=== PATIENT | male | born 1965 | race Caucasian/White ===

== ENCOUNTER → 2020-11-01 10:58 | Outpatient (BNVA) | payer OTHER, SELFPAY | PROVIDERS: PCP Internal Medicine; Visit Provider Internal Medicine Gastroenterology ==

== ENCOUNTER 2021-10-18 14:13 | Outpatient (REF) | payer OTHER, SELFPAY ==
[2021-10-18 16:11] LABS: Alanine Aminotransferase 20 U/L (0-40); Albumin Level 4.4 g/dL (3.5-5.0); Alkaline Phosphatase 68 U/L (39-117); Aspartate Amino Transferase 18 U/L (5-37); Bilirubin Direct 0.6 mg/dL (0.0-0.5); Bilirubin Total 1.6 mg/dL (0.0-1.0)
[2021-10-18 16:31] LABS: Ferritin 316 ng/mL (20-250)
== END 2021-10-18 14:14 | disposition home or self-care (01) ==
LOC: HO.LAB 14:13
PROVIDERS: PCP Internal Medicine; Referring Provider Internal Medicine; Visit Provider Nurse Practitioner Family
DX: Z01.818 Encounter for other preprocedural examination (principal); D12.6 Benign neoplasm of colon, unspecified; E83.119 Hemochromatosis, unspecified; R74.8 Abnormal levels of other serum enzymes
CPT/HCPCS: 36415; 80076; 82728

== ENCOUNTER → 2021-10-26 15:27 | Outpatient (BNV) | payer OTHER, SELFPAY | PROVIDERS: PCP Internal Medicine; Referring Provider Nurse Practitioner Family; Visit Provider Internal Medicine | DX: E83.119 Hemochromatosis, unspecified (principal) | CPT/HCPCS: 99203; 99213; 99214 ==

== ENCOUNTER 2021-11-19 12:17 | Day surgery (SDC) | payer OTHER, SELFPAY ==
[2021-11-13 15:18] VITALS: BMI 26.1
--- NOTE | 2021-11-15 14:54 | P.CONAN_ITS ---
Documented by User: Domitila Kellogg NP 11/15/21 14:55 HPI - Anesthesia Eval Consult details Narrative: 56yo M for Colonoscopy PMFSH Active Problems Active Problems: All Active Problems (Updated 11/13/21 @ 15:18 by Christiane Sotelo, CARLIE) Tubular adenoma of colon (Acute) Hemochromatosis (Acute) Past Medical History Medical History (Updated 11/13/21 @ 15:18 by Christiane Sotelo RN) COVID-19 vaccine series completed Hemochromatosis Hx of gout Inguinal hernia Tubular adenoma of colon Family History Family History Mother Cancer Surgical History Surgical History (Updated 11/13/21 @ 15:12 by Christiane Sotelo RN) H/O colonoscopy History of liver biopsy Hx of umbilical hernia repair Social History Social History (Updated 10/26/21 @ 15:36 by Zenaida Contreras RN) Household Members: Spouse Alcohol intake: current Alcohol intake frequency: a few times a week Patient Tobacco Use Status: Never used Tobacco Use of substances other than those prescribed or required for medical reasons: No Have you been hit, kicked, punched, or otherwise hurt by someone within the past year? If so, by whom?: No Are you DNR?: No Advance Directives: No Advance Directives Information Provided: Yes Advance Directives on File: No Recently lost weight without trying: No Eating poorly because of decreased appetite: No Nutrition Risks: No Nutritional Risk Poor oral hygiene: No Meds Allergies Allergy/AdvReac Type Severity Reaction Status Date / Time No Known Allergies Allergy Mild N/A Verified 10/18/21 14:16 Home Medications Medication Instructions Recorded Confirmed Last Taken Type imiquimod 5 % topical cream packet 1 appl TOPICAL DAILY 11/01/20 11/13/21 U nknown History indomethacin 50 mg capsule 50 mg PO TID PRN MDD gout 11/01/20 11/13/21 Unknown History Exam Exam Date and Time: November 15, 2021 1454 Height,Weight and Vital Signs: Height 5 ft 10 in Weight 82.554 kg Pertinent Lab Results Pertinent Lab Results: Laboratory Tests 10/26/21 10/26/21 15:02 15:02 WBC 7.7 Hgb 15.4 Hct 45.8 Plt Count 281 Iron 190 H TIBC 301 % Saturation 63 H Unsat Iron Binding 111 Ferritin 347 H Assessment and Plan Assessment Anesthesia Assessment: Chart Reviewed Documented by User: Oly Negrete MD 11/19/21 12:47 PMFSH Past Medical History Medical History (Updated 11/13/21 @ 15:18 by Christiane Sotelo, CARLIE) COVID-19 vaccine series completed Hemochromatosis Hx of gout Inguinal hernia Tubular adenoma of colon Family History Family History Mother Cancer Family history of problems with anesthesia: No Surgical History Surgical History (Updated 11/13/21 @ 15:12 by Christiane Sotelo RN) H/O colonoscopy History of liver biopsy Hx of umbilical hernia repair History of Problems with Anesthesia: No Social History Social History (Updated 10/26/21 @ 15:36 by Zenaida Contreras RN) Household Members: Spouse Alcohol intake: current Alcohol intake frequency: a few times a week Patient Tobacco Use Status: Never used Tobacco Use of substances other than those prescribed or required for medical reasons: No Have you been hit, kicked, punched, or otherwise hurt by someone within the past year? If so, by whom?: No Are you DNR?: No Advance Directives: No Advance Directives Information Provided: Yes Advance Directives on File: No Recently lost weight without trying: No Eating poorly because of decreased appetite: No Nutrition Risks: No Nutritional Risk Poor oral hygiene: No Meds Allergies Allergy/AdvReac Type Severity Reaction Status Date / Time No Known Allergies Allergy Mild N/A Verified 10/18/21 14:16 Home Medications Medication Instructions Recorded Confirmed Last Taken Type imiquimod 5 % topical cream packet 1 appl TOPICAL DAILY 11/01/20 11/13/21 Unknown History indomethacin 50 mg capsule 50 mg PO TID PRN MDD gout 11/01/20 11/13/21 Unknown History Exam Airway Mallampati Class: II (Caps laterally) TM Dist: >3cm Neck ROM: Full Heart: rrr Lungs: cta Assessment and Plan Assessment Anesthesia Assessment: Anesthesia Plan Discussed and Chart Reviewed Final Anesthetic Review Family History of Problems with Anesthesia: No History of Problems with Anesthesia: No NPO: Yes ASA Class: II Final Preanesthetic Review: No Changes in Pt Med Stat, Meds/Allgs Chart Reviewed and Consent Obtained/Reviewed Patient Risk: Intermediate Procedure Risk: Intermediate Anesthetic Plan Anesthetic Plan: MAC: Disposition: Standard PACU
[2021-11-19 12:32] VITALS: BMI 26.5
[2021-11-19 12:40] VITALS: BP 118/85; PULSE 87; RESP 18; TEMP 36.2; O2SAT 96
--- NOTE | 2021-11-19 12:53 | MHC.SHP ---
Pre-Procedural Eval Section A Date of Service: 11/19/21 The patient is an INPATIENT: No The History & Physical has been completed within 30 days and I have reviewed it.: No Section B Chief Complaint: screening Details of Present Illness: Colon cancer screen Relevant Family History (Specify if Yes): No Relevant Social History: None Present Medications: see Short Stay Collaborative assessment Medical History: Significant History (Hemochromatosis Hx of gout Inguinal hernia Tubular adenoma of colon) History of Previous Operations: Relevant previous surgery/procedure and date(s) (H/O colonoscopy History of liver biopsy) Allergies: Allergies Allergy/AdvReac Type Severity Reaction Status Date / Time No Known Allergies Allergy Mild N/A Verified 10/18/21 14:16 Review of Systems Sugical H&P ROS: Negative: Constitution, Cardiovascular, Respiratory and Gastrointestinal Exam Surgical H&P Exam: Normal: Heart, Normal: Lungs, Normal: Extremities and Normal: Abdomen Plan Diagnosis/Plan: Unchanged I have reviewed the history and physical and performed a pertinent physical examination on my patient. No changes have occurred unless specified.
--- NOTE | 2021-11-19 12:55 | W.PM.OPN ---
Operative Note Operative Note Date of Service: 11/19/21 Narrative: Pre-op diagnosis: Colon cancer screening, history of colon polyps Post-op diagnosis:?other (Colon polyps, diverticulosis, hemorrhoids) Procedure: COLONOSCOPY TILL CECUM WITH BIOPSIES Consent: Indications for the procedure and potential complications of bleeding, perforation, reaction to medications and missed diagnosis were discussed with the patient and informed consent was obtained. Instrument: Olympus PCF H 190 L variable stiffness pediatric colonoscope Monitoring: Vital signs and clinical assessment, intermittent blood pressure monitoring, continuous EKG monitoring, Pulse oximetry and Carbon Dioxide monitoring were done throughout the procedure. Colon withdrawl time was 19 minutes. Procedure: The patient was placed in the left lateral decubitis position and pre-procedure medications were administered. After a digital rectal examination of the ano-rectum, the video colonoscope was inserted into the rectum and advanced through the colon to the cecum. The colonoscope was slowly withdrawn in a retrograde panoramic fashion and the colon mucosa was carefully examined including a retroflexed view of the rectum. Findings and interventions are described below. Procedure Difficulty:? Colon was long and there was some loop formation.? LLQ? pressure was applied to intubate the ascending colon Findings: Terminal Ileum: Not evaluated Cecum:? Normal Ascending Colon:? Normal Transverse Colon:? Normal Descending Colon:? Normal Sigmoid Colon:? A 2-3 mm sessile polyp removed with the cold biopsy. Moderate diverticulosis Rectum:? A few 2-5 mm diminutive appearing polyps - 1 removed with cold biopsy Ano-rectum:? Moderate internal hemorrhoids Colon preparation:? Good? Impression and Post Procedure Diagnosis: Colonoscopy Findings: Two small polyps removed Moderate diverticulosis seen in the sigmoid colon Moderate hemorrhoids on retroflexed exam. Plan: Await pathology results Patient has an appointment on 12/07/20 in the [facility] with Stephanie Cloud FNP-BC . Repeat Colonoscopy interval based on path results - in 5 years if polyps are adenomatous and due to a history of colon polyps. (Adult colonoscope for future colonoscopies) Above findings were reviewed with the patient and colon polyps and diverticulosis handouts were given in the discharge area Surgeon: Michela Martinez MD Anesthesia:?MAC (Dr Croft) Was an Community Engagement Representative used for this Procedure?:?Yes Community Engagement Representative:?Sandra Mckay Estimated blood loss (mL):?0 Pathology:?other (A. sigmoid polyp? B. rectal polyp) Condition:?stable Disposition:?PACU
[2021-11-19] MEDS: Lactated Ringers 1,000 ML 100 ML IVCONT (13:42)
[2021-11-19 14:16] VITALS: BP 116/64; PULSE 82; RESP 16; TEMP 36.4; O2SAT 94
[2021-11-19 14:31] VITALS: BP 117/78; PULSE 77; RESP 18; TEMP 36.4; O2SAT 96
== END 2021-11-19 15:27 | disposition home or self-care (01) ==
PROVIDERS: PCP Internal Medicine; Visit Provider Internal Medicine Gastroenterology
PROC: 0DJD8ZZ Inspection of Lower Intestinal Tract, Via Natural or Artificial Opening Endoscopic (ICD-10-PCS; CPT 45378; principal; 2021-11-19 13:20)
DX: Z12.11 Encounter for screening for malignant neoplasm of colon (principal); D12.5 Benign neoplasm of sigmoid colon; K62.1 Rectal polyp; K57.30 Diverticulosis of large intestine without perforation or abscess without bleeding; K64.8 Other hemorrhoids; K56.2 Volvulus; E83.119 Hemochromatosis, unspecified; Z86.010 Personal history of colon polyps
CPT/HCPCS: 45380; 88305

== ENCOUNTER 2021-11-23 10:04 | Outpatient (REF) | payer OTHER, SELFPAY ==
[2021-11-23 10:32] LABS: Uric Acid 14.9 mg/dL (3.4-7.0)
[2021-11-23 10:52] LABS: PSA,Total (Free>4and<10) 2.14 ng/mL (0.00-4.00)
== END 2021-11-23 10:05 | disposition home or self-care (01) ==
LOC: HO.LNP 10:04
PROVIDERS: Visit Provider Internal Medicine
DX: Z12.5 Encounter for screening for malignant neoplasm of prostate (principal); M10.9 Gout, unspecified; R97.20 Elevated prostate specific antigen [PSA]
CPT/HCPCS: 84153; 84550

== ENCOUNTER → 2021-12-07 08:58 | Outpatient (BNVA) | payer OTHER, SELFPAY | PROVIDERS: PCP Internal Medicine; Referring Provider Internal Medicine; Visit Provider Nurse Practitioner Family | DX: Z13.89 Encounter for screening for other disorder (principal) ==

== ENCOUNTER 2022-01-11 10:45 | Outpatient (REF) | payer OTHER, SELFPAY | END 2022-01-11 10:46 | disposition home or self-care (01) | LOC: HO.BBR 10:45 | PROVIDERS: Visit Provider Internal Medicine | DX: Z13.89 Encounter for screening for other disorder (principal) ==

== ENCOUNTER 2022-02-08 08:02 | Outpatient (REF) | payer OTHER, SELFPAY | END 2022-02-08 08:03 | disposition home or self-care (01) | LOC: HO.BBR 08:02 | PROVIDERS: Visit Provider Internal Medicine | DX: Z13.89 Encounter for screening for other disorder (principal) ==

== ENCOUNTER 2022-03-08 08:06 | Outpatient (REF) | payer OTHER, SELFPAY | END 2022-03-08 08:07 | disposition home or self-care (01) | LOC: HO.BBR 08:06 | PROVIDERS: Visit Provider Internal Medicine | DX: Z13.89 Encounter for screening for other disorder (principal) ==

== ENCOUNTER 2022-04-08 08:00 | Outpatient (REF) | payer OTHER, SELFPAY | END 2022-04-08 08:01 | disposition home or self-care (01) | LOC: HO.BBR 08:00 | PROVIDERS: Visit Provider Internal Medicine | DX: Z13.89 Encounter for screening for other disorder (principal) ==

== ENCOUNTER 2022-05-07 08:05 | Outpatient (REF) | payer OTHER, SELFPAY | END 2022-05-07 08:06 | disposition home or self-care (01) | LOC: HO.BBR 08:05 | PROVIDERS: Visit Provider Internal Medicine | DX: Z13.89 Encounter for screening for other disorder (principal) ==

== ENCOUNTER 2022-06-04 08:08 | Outpatient (REF) | payer OTHER, SELFPAY | END 2022-06-04 08:09 | disposition home or self-care (01) | LOC: HO.BBR 08:08 | PROVIDERS: Visit Provider Internal Medicine | DX: Z13.89 Encounter for screening for other disorder (principal) ==

== ENCOUNTER 2022-07-02 08:03 | Outpatient (REF) | payer OTHER, SELFPAY | END 2022-07-02 08:04 | disposition home or self-care (01) | LOC: HO.BBR 08:03 | PROVIDERS: Visit Provider Internal Medicine | DX: Z13.89 Encounter for screening for other disorder (principal) ==

== ENCOUNTER 2022-07-30 08:06 | Outpatient (REF) | payer OTHER, SELFPAY | END 2022-07-30 08:07 | disposition home or self-care (01) | LOC: HO.BBR 08:06 | PROVIDERS: Visit Provider Internal Medicine | DX: Z13.89 Encounter for screening for other disorder (principal) ==

== ENCOUNTER 2022-08-27 08:04 | Outpatient (REF) | payer OTHER, SELFPAY | END 2022-08-27 08:05 | disposition home or self-care (01) | LOC: HO.BBR 08:04 | PROVIDERS: Visit Provider Internal Medicine | DX: Z13.89 Encounter for screening for other disorder (principal) ==

== ENCOUNTER 2022-10-02 08:10 | Outpatient (REF) | payer OTHER, SELFPAY | END 2022-10-02 08:11 | disposition home or self-care (01) | LOC: HO.BBR 08:10 | PROVIDERS: PCP Internal Medicine; Visit Provider Internal Medicine | DX: Z13.89 Encounter for screening for other disorder (principal) ==

== ENCOUNTER 2022-10-03 11:49 | Outpatient (REF) | payer OTHER, SELFPAY ==
[2022-10-03 11:59] LABS: MANUAL DIFF FLAG NO
[2022-10-03 12:34] LABS: Basophils Absolute Auto 0.1 X10*3/uL (0.0-0.2); Basophils Percent Auto 0.8 % (0-2); Eosinophils Absolute Auto 0.4 X10*3/uL (0.0-0.4); Hemoglobin 14.3 g/dl (14.0-18.0); Imm Gran Abs Auto 0.05 X10*3/uL (0.00-0.03); Imm Gran Pct Auto 0.8 % (0.0-0.4); Lymphocytes Percent Auto 47.6 % (20-40); Mean Corpuscular Hemoglobin 32.1 pg (27.0-33.0); Mean Corpuscular Volume 94.2 fL (80.0-98.0); Mean Platelet Volume 9.8 fL (9.4-12.4); Monocytes Absolute Auto 0.6 X10*3/uL (0.1-1.2); Monocytes Percent Auto 9.7 % (2-11); Neutrophils Absolute Auto 2.2 x10*3/uL (2.0-8.3); Neutrophils Percent Auto 35.1 % (45-73); Platelet Count 306 X10*3/uL (160-400); Red Blood Count 4.46 X10*6/uL (4.60-5.80); Red Cell Distribution Width 12.7 % (11.0-16.0); White Blood Count 6.2 X10*3/uL (4.8-10.8)
[2022-10-03 12:37] LABS: Appearance Urine Clear; Color Urine Yellow; Glucose Urine UA Negative (Negative); Leukocyte Esterase Urine Negative (Negative); Nitrite Urine Negative (Negative); Urine Blood Negative (Negative); Urine Ketones Negative (Negative); Urine Protein Negative (Neg-Trace)
[2022-10-03 12:47] LABS: Bacteria Urine None Seen (None Seen); Hyaline Casts Urine 0-2 /LPF (0-2); RBC Urine 0-2 /HPF (0-2); Squamous Epithelial Cell Urine 0-2 /HPF (0-2); WBC Urine 0-5 /HPF (0-5)
[2022-10-03 12:58] LABS: Alanine Aminotransferase 20 U/L (0-40); Albumin Level 3.9 g/dL (3.5-5.0); Alkaline Phosphatase 61 U/L (39-117); Anion Gap 13 (12-20); Aspartate Amino Transferase 18 U/L (5-37); Bilirubin Total 1.1 mg/dL (0.0-1.0); Blood Urea Nitrogen 18 mg/dL (9-16); Calcium 8.8 mg/dL (8.4-10.2); Carbon Dioxide 26 mmol/L (22-29); Chloride 108 mmol/L (96-108); Cholesterol 210 mg/dL; Estimated Glomerular Filt Rate > 60; Glucose Fasting 104 mg/dL (60-99); HDL Cholesterol 67 mg/dL; Iron 150 mcg/dL (45-160); LDL Cholesterol Calculated 126 mg/dl; Percent Iron Saturation 50 % (15-50); Potassium 4.6 mmol/L (3.3-5.1); Sodium 142 mmol/L (135-145); Total Iron Binding Capacity 300 mcg/dL (228-428); Total Protein 6.3 g/dL (6.5-8.0); Triglycerides 88 mg/dL; Unsaturated Iron Binding 150 ug/dL; Uric Acid 8.7 mg/dL (3.4-7.0)
[2022-10-03 13:01] LABS: Estimated Average Glucose 94 mg/dL; Hemoglobin A1c % 4.9 %
[2022-10-03 13:17] LABS: Ferritin 63 ng/mL (20-250); PSA,Total (Free>4and<10) 2.29 ng/mL (0.00-4.00)
[2022-10-03 13:49] LABS: Microalbum/Creatinine Ratio Ur 5.9 ug/mg cr
== END 2022-10-03 11:50 | disposition home or self-care (01) ==
LOC: HO.LNP 11:49
PROVIDERS: Visit Provider Internal Medicine
DX: Z00.00 Encounter for general adult medical examination without abnormal findings (principal); Z12.5 Encounter for screening for malignant neoplasm of prostate; R73.03 Prediabetes; R97.20 Elevated prostate specific antigen [PSA]; D72.820 Lymphocytosis (symptomatic); E83.119 Hemochromatosis, unspecified
CPT/HCPCS: 80053; 80061; 81001; 82043; 82728; 83036; 83540; 84153; 84550; 85025

== ENCOUNTER 2022-10-30 08:09 | Outpatient (REF) | payer OTHER, SELFPAY | END 2022-10-30 08:10 | disposition home or self-care (01) | LOC: HO.BBR 08:09 | PROVIDERS: Visit Provider Internal Medicine | DX: Z13.89 Encounter for screening for other disorder (principal) ==

== ENCOUNTER 2022-12-11 08:03 | Outpatient (REF) | payer OTHER, SELFPAY | END 2022-12-11 08:04 | disposition home or self-care (01) | LOC: HO.BBR 08:03 | PROVIDERS: Visit Provider Internal Medicine | DX: Z13.89 Encounter for screening for other disorder (principal) ==

== ENCOUNTER 2023-01-29 08:01 | Outpatient (REF) | payer OTHER, SELFPAY | END 2023-01-29 08:02 | disposition home or self-care (01) | LOC: HO.BBR 08:01 | PROVIDERS: PCP Internal Medicine; Visit Provider Internal Medicine | DX: Z13.89 Encounter for screening for other disorder (principal) ==

== ENCOUNTER 2023-03-10 15:34 | Outpatient (AMB) | payer OTHER, SELFPAY ==
--- NOTE | 2023-03-10 15:38 | A.OFFVIS_ITS ---
Intake Vital Signs 03/10/23 15:39 Height 5 ft 10 in Weight 200 lb 6.403 oz BMI 28.8 BP 120/84 Blood Pressure Location Rt brachial Position Sitting Pulse 84 Pulse Source Pulse Oximeter Temp 98.1 F Temp Source Skin Pulse Oximetry (%) 95 Intake Visit Reasons: acute gout lt ankle Intake Note: New pt presents today for gout consult. He states he's had gout on and off since December 2021. 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 For about 10 years he has had intermittent gout attacks. These have involved the 1st MTP in both feet, left ankle, one knee, and the right hand. He has been on the allopurinol in the past but it was associated with increased attacks so he was afraid to take it. For about the last year he has been taking 300 mg daily. However he did have a gout attack in December. This was involving the right 2nd MCP and also the left ankle. This did not respond as well to ibuprofen 800 mg daily as it had previously. He was given a course of prednisone and the symptoms mostly have resolved. He thinks there still is some swelling at the right 2nd MCP but it is not painful. The ankle has improved. He does have a history of hemochromatosis and gets phlebotomy done about every 6 weeks. That apparently is a reduction in frequency then he had it done before - it was monthly. He also had some treatment in the past with indomethacin and colchicine but those medicines caused stomach upset. In the past year he seems to be having some knee pain and discomfort. This is particularly notable with stairs. He has not had recent gout attacks in the knees but did have gout attacks in the knees in the past. [facility] Medical History (Updated 03/10/23 @ 16:34 by Chava Gallardo MD) COVID-19 vaccine series completed Hemochromatosis Hx of gout Inguinal hernia Tubular adenoma of colon Surgical History H/O colonoscopy History of liver biopsy Hx of umbilical hernia repair Family History Mother Cancer Social History (Updated 03/10/23 @ 15:44 by GEORGE Maria) Household Members: Spouse Household Members Other:: Son Housing: House Alcohol intake: current Alcohol intake frequency: a few times a week Patient Tobacco Use Status: Never used Tobacco service: No Current occupational status: employed Current occupation: [employer] Review of Systems Const Details: Negative for appetite change, weight change, fever, chills, malaise and fatigue Eyes Details: Negative for vision change, dry eyes,headaches and dizziness ENT Details: Occasional tinnitus. Negative for hearing change, oral ulcer, nose bleeds and oral dryness. Card Details: Negative chest pain, edema and syncope Resp Details: Negative for SOB, cough and wheezing GI Details: History of hemochromatosis, on phlebotomy on a regular basis. Negative indigestion/heartburn, nausea, abdominal pain, bowel changes, diarrhea, constipation and bloody stool. Details: Negative for dysuria, hematuria, nocturia, decreased force/flow and genital discharge Skin/Breast Details: Negative for itching, rash, hives, Raynaud's symptoms, sun sensitivity, and skin cancer Neuro Details: Negative for epilepsy, palsy, stroke, changes in speech, tingling and weakness Psych Details: Negative for anxiety, depression and stress Endo Details: Negative for polyuria and polydypsia Eyal/Lymph Details: Negative for excessive bruising or bleeding. Physical Exam Vital Signs: Last Vital Signs Temp 98.1 F 03/10/23 15:39 Pulse 84 03/10/23 15:39 BP 120/84 03/10/23 15:39 Pulse Ox 95 03/10/23 15:39 BMI result Body Mass Index 28.8 APPEARANCE: Patient in no acute distress EYES no redness, pupils equal and reactive to light, eyelids normal EARS: External ear normal, canal clear and tympanic membrane normal. NOSE/SINUS: Airflow through both nares, no nasal discharge, no bleeding THROAT: Oral mucosa moist, no ulcerations NECK: No thyromegaly or masses, no adenopathy, trachea midline. HEART: Regulrar rhythm, S1-S2 heard, no murmurs, rubs or gallops. LUNG: Clear to percussion and auscultation ABD: Normal bowel sounds, no organomegaly, masses or tenderness. EXTREMITIES: No edema, no calf tenderness, normal peripheral pulses. NEURO: Oriented and alert x3. No focal weakness. Reflexes symmetric. Gait normal. SKIN: No inflammatory or neoplastic lesions. Normal color and turgor JOINT EXAM:?? Cervical Spine:.? Full range of motion without pain; no tenderness. Thoracic Spine:.? No scoliosis.? No tenderness on palpation. Lumbar Spine:.? Alignment normal.? Full range of motion without pain, no tenderness. Chest Wall:.? No tenderness, swelling, increased warmth or erythema. Hands:.? Right: There is some slight enlargement at the 2nd MCP and the thumb IP. Neither of these are tender today. This feels mostly like bony enlargement. There is no flexor tendon triggering, thenar atrophy, or flexor tendinitis. He has no tenderness or pain elsewhere. Left: Normal pain-free range of motion without tenderness, swelling, increased warmth or erythema. Able to make a full fist and has a good student assistant strength. Wrists:.? Normal pain-free range of motion without tenderness, swelling, increased warmth or erythema. Elbows:. Normal pain-free range of motion without tenderness, swelling, increased warmth or erythema. Shoulders:.?? Full range of motion without pain. No tenderness, weakness, swelling, increased warmth or erythema. Hips:.? Full range of motion without pain. Hip bursa:.? No tenderness. Knees:.?? Normal pain-free range of motion with mild patellofemoral crepitus. No effusion, tenderness, swelling, increased warmth or erythema.? Ankles:.? Left: There is normal pain-free range of motion. There is a slight valgus deformity at the ankle. There is minimal medial tenderness with may be some more prominence on the medial side. No redness or warmth. Right: Normal pain-free range of motion without tenderness, swelling, increased warmth or erythema. Feet:.? Normal pain-free range of motion with mild 1st MTP bony enlargement. This is not associated with any tenderness, redness or soft tissue swelling. Other joints have no tenderness, swelling, increased warmth or erythema. Tender points:.? No tenderness to digital palpation at the occiput, trapezius, second rib, lateral epicondyle, knees, greater trochanter and gluteal area bilaterally. ? Results Reviewed Results Reviewed: Laboratory Tests 10/03/22 10/03/22 07:30 07:30 WBC 6.2 Hgb 14.3 Uric Acid 8.7 H Laboratory Tests 11/23/21 07:35 Uric Acid 14.9 H Laboratory Tests 04/26/22 10/03/22 11:25 07:30 Creatinine 0.93 0.90 Assessment & Plan Assessment & Plan (1) Hemochromatosis: Comment: past hx of therapeutic phlebotomies-hematology consult 10/26/21 and advised to resume therapeutic phlebotomies Code(s): E83.119 - Hemochromatosis, unspecified Qualifiers: Hemochromatosis type: hereditary Qualified Code(s): E83.110 - Hereditary hemochromatosis (2) Gout: Code(s): M10.9 - Gout, unspecified Plan The patient has had gout attacks for number of years. The initial uric acid was over 14. More recently it was at 8.7 although it is not clear on what dose of the allopurinol he was on at time. He does have hemochromatosis with regular phlebotomies. That could change to some extent the uric acid level. I explained the changes in the uric acid level such as starting, stopping, or changing allopurinol dose could precipitate an attack. He would need to have a prophylactic medicine or a p.r.n. treatment plan if he gets another gout attack. I think we need to check the uric acid. We will be aiming to keep the uric a elo below 6. Keeping the level below 6 over time will eventually reduce the frequency and severity of the gout attacks. The swelling at the right 2nd MCP could represent some osteoarthritis related to his hemochromatosis, residual swelling from the recent attack, or even localized uric acid deposition in a tophus. Similarly the knee pain could be some mild patellofemoral OA, some OA related to gouty arthropathy, or OA related to hemochromatosis. We will arrange follow-up depending on his uric acid level. I am aiming to get the uric acid below 6. If we need to increase the allopurinol dosage we would ask him to increase for a week or so the allopurinol dose. If he flares in spite of that measure we would add some prednisone. I will get back to him with the recommendations after the uric acid level comes back. Orders: Orders Basic Metabolic Panel Today M10.9 - Gout, unspecified Uric Acid Today M10.9 - Gout, unspecified Coding Level of Care Code New Pt Level 3 (25192) Diagnoses Hemochromatosis E83.110 Hemochromatosis type: hereditary Gout M10.9
[2023-03-10 15:39] VITALS: BP 120/84; PULSE 84; TEMP 36.7; O2SAT 95; BMI 28.8
== END 2023-03-10 16:45 | disposition home or self-care (01) ==
PROVIDERS: PCP Internal Medicine; Visit Provider Internal Medicine Rheumatology
DX: E83.110 Hereditary hemochromatosis (principal); M10.9 Gout, unspecified
CPT/HCPCS: 99203

== ENCOUNTER → 2023-03-10 15:34 | Outpatient (BNVA) | payer OTHER, SELFPAY | PROVIDERS: PCP Internal Medicine; Visit Provider Internal Medicine Rheumatology ==

== ENCOUNTER 2023-03-12 08:01 | Outpatient (REF) | payer OTHER, SELFPAY | END 2023-03-12 08:02 | disposition home or self-care (01) | LOC: HO.BBR 08:01 | PROVIDERS: PCP Internal Medicine; Visit Provider Internal Medicine | DX: Z13.89 Encounter for screening for other disorder (principal) ==

== ENCOUNTER 2023-03-12 08:41 | Outpatient (REF) | payer OTHER, SELFPAY ==
[2023-03-12 10:57] LABS: Anion Gap 16 (12-20); Blood Urea Nitrogen 23 mg/dL (9-16); Calcium 9.3 mg/dL (8.4-10.2); Carbon Dioxide 22 mmol/L (22-29); Chloride 109 mmol/L (96-108); Estimated Glomerular Filt Rate > 60; Glucose Random 108 mg/dL (60-115); Potassium 4.8 mmol/L (3.3-5.1); Sodium 142 mmol/L (135-145); Uric Acid 5.1 mg/dL (3.4-7.0)
== END 2023-03-12 08:42 | disposition home or self-care (01) ==
LOC: HO.LNP 08:41
PROVIDERS: Visit Provider Internal Medicine Rheumatology
DX: M10.9 Gout, unspecified (principal)
CPT/HCPCS: 80048; 84550

== ENCOUNTER 2023-04-23 08:01 | Outpatient (REF) | payer OTHER, SELFPAY | END 2023-04-23 08:02 | disposition home or self-care (01) | LOC: HO.BBR 08:01 | PROVIDERS: Visit Provider Internal Medicine | DX: Z13.89 Encounter for screening for other disorder (principal) ==

== ENCOUNTER 2023-06-04 08:02 | Outpatient (REF) | payer OTHER, SELFPAY | END 2023-06-04 08:03 | disposition home or self-care (01) | LOC: HO.BBR 08:02 | PROVIDERS: PCP Internal Medicine; Visit Provider Internal Medicine | DX: Z13.89 Encounter for screening for other disorder (principal) ==

== ENCOUNTER 2023-09-04 08:00 | Outpatient (REF) | payer OTHER, SELFPAY | END 2023-09-04 08:01 | disposition home or self-care (01) | LOC: HO.BBR 08:00 | PROVIDERS: PCP Internal Medicine; Visit Provider Internal Medicine | DX: Z13.89 Encounter for screening for other disorder (principal) ==

== ENCOUNTER 2023-11-14 11:24 | Outpatient (REF) | payer OTHER, SELFPAY ==
[2023-11-14 11:27] LABS: MANUAL DIFF FLAG NO
[2023-11-14 12:00] LABS: Basophils Absolute Auto 0.1 X10*3/uL (0.0-0.2); Basophils Percent Auto 0.8 % (0-2); Eosinophils Absolute Auto 0.2 X10*3/uL (0.0-0.4); Eosinophils Percent Auto 2.9 % (0-4); Hematocrit 45.8 % (42.0-52.0); Hemoglobin 15.7 g/dl (14.0-18.0); Imm Gran Abs Auto 0.02 X10*3/uL (0.00-0.03); Imm Gran Pct Auto 0.3 % (0.0-0.4); Lymphocytes Absolute Auto 2.8 X10*3/uL (1.2-4.9); Lymphocytes Percent Auto 42.4 % (20-40); Mean Corpuscular HGB Conc 34.3 g/dl (31.0-36.0); Mean Corpuscular Hemoglobin 32.2 pg (27.0-33.0); Mean Platelet Volume 9.8 fL (9.4-12.4); Monocytes Absolute Auto 0.5 X10*3/uL (0.1-1.2); Monocytes Percent Auto 7.8 % (2-11); Neutrophils Percent Auto 45.8 % (45-73); Platelet Count 259 X10*3/uL (160-400); Red Blood Count 4.87 X10*6/uL (4.60-5.80); Red Cell Distribution Width 12.9 % (11.0-16.0); White Blood Count 6.5 X10*3/uL (4.8-10.8)
[2023-11-14 12:08] LABS: Appearance Urine Clear; Color Urine Yellow; Glucose Urine UA Negative (Negative); Leukocyte Esterase Urine Negative (Negative); Nitrite Urine Negative (Negative); PH 6.5 (5.0-9.0); Urine Blood Negative (Negative); Urine Ketones Negative (Negative); Urine Protein Negative (Neg-Trace)
[2023-11-14 12:17] LABS: Bacteria Urine None Seen (None Seen); Hyaline Casts Urine 0-2 /LPF (0-2); RBC Urine 0-2 /HPF (0-2); Squamous Epithelial Cell Urine 0-2 /HPF (0-2); WBC Urine 0-5 /HPF (0-5)
[2023-11-14 12:47] LABS: Estimated Average Glucose 91 mg/dL; Hemoglobin A1c % 4.8 % (<6.0)
[2023-11-14 12:51] LABS: Alanine Aminotransferase 27 U/L (0-40); Albumin Level 4.1 g/dL (3.5-5.0); Alkaline Phosphatase 60 U/L (39-117); Anion Gap 12 (12-20); Aspartate Amino Transferase 25 U/L (5-37); Bilirubin Total 1.2 mg/dL (0.0-1.0); Blood Urea Nitrogen 11 mg/dL (9-16); Calcium 9.1 mg/dL (8.4-10.2); Carbon Dioxide 28 mmol/L (22-29); Chloride 105 mmol/L (96-108); Cholesterol 168 mg/dL (<200); Estimated Glomerular Filt Rate > 60; Glucose Fasting 104 mg/dL (60-99); HDL Cholesterol 70 mg/dL (>40); Iron 81 mcg/dL (45-160); LDL Cholesterol Calculated 87 mg/dL (<100); Percent Iron Saturation 27 % (15-50); Potassium 4.1 mmol/L (3.3-5.1); Sodium 141 mmol/L (135-145); Total Iron Binding Capacity 296 mcg/dL (228-428); Total Protein 6.8 g/dL (6.5-8.0); Triglycerides 57 mg/dL (<150); Unsaturated Iron Binding 215 ug/dL
[2023-11-14 13:09] LABS: PSA,Total (Free>4and<10) 2.38 ng/mL (0.00-4.00)
[2023-11-14 13:52] LABS: Creatinine Urine 75.93 mg/dL; Microalbumin Urine < 5.0 mg/L
== END 2023-11-14 11:25 | disposition home or self-care (01) ==
LOC: HO.LNP 11:24
PROVIDERS: Visit Provider Internal Medicine
DX: Z00.00 Encounter for general adult medical examination without abnormal findings (principal); Z12.5 Encounter for screening for malignant neoplasm of prostate; Z13.6 Encounter for screening for cardiovascular disorders; D64.9 Anemia, unspecified; R97.20 Elevated prostate specific antigen [PSA]; R73.03 Prediabetes; D72.820 Lymphocytosis (symptomatic)
CPT/HCPCS: 80053; 80061; 81001; 82043; 82570; 83036; 83540; 84153; 85025

== ENCOUNTER 2023-12-03 08:02 | Outpatient (REF) | payer OTHER, SELFPAY | END 2023-12-03 08:03 | disposition home or self-care (01) | LOC: HO.BBR 08:02 | PROVIDERS: PCP Internal Medicine; Visit Provider Internal Medicine | DX: Z13.89 Encounter for screening for other disorder (principal) ==

== ENCOUNTER 2024-03-04 08:10 | Outpatient (REF) | payer OTHER, SELFPAY ==
[2024-03-04 10:01] LABS: Ferritin 44 ng/mL (20-250)
== END 2024-03-04 08:11 | disposition home or self-care (01) ==
LOC: HO.BBR 08:10
PROVIDERS: PCP Internal Medicine; Visit Provider Internal Medicine
DX: E83.110 Hereditary hemochromatosis (principal)
CPT/HCPCS: 36415; 82728

== ENCOUNTER 2024-06-08 08:05 | Outpatient (REF) | payer OTHER, SELFPAY ==
[2024-06-08 10:46] LABS: Ferritin 59 ng/mL (20-250)
== END 2024-06-08 08:06 | disposition home or self-care (01) ==
LOC: HO.BBR 08:05
PROVIDERS: PCP Internal Medicine; Visit Provider Internal Medicine
DX: E83.110 Hereditary hemochromatosis (principal)
CPT/HCPCS: 36415; 82728

== ENCOUNTER 2024-09-08 08:02 | Outpatient (REF) | payer OTHER, SELFPAY ==
--- OUTSIDE RECORDS SUMMARY | 2024-09-08 08:10 | XMS_ITS ---
Author Organization Gio Valdez MD Address [address] [place] [id number] Care Team Providers Care Motor Vehicle Salesperson Name Role Phone Gio Valdez Primary Care Provider [phone] REASON FOR VISIT referral Encounters Encounter Location Date Provider Diagnosis Gio Valdez MD [address] [facility] [address] [place] [id number] 07/29/2023 Gio Valdez Plan Of Treatment Next Appt Details Provider Name:Gio Tran ier, 11/25/2024 07:15:00 AM, [address] [place] [address], Suite [facility], [place], [place], [phone], Provider Name:Gio Tran ier, 12/02/2024 08:00:00 AM, [address] [place] [address], [address], [phone], Progress Notes * MANANReubenDOB: [birth year] (58 yo M)Acc No.[id number]:07/29/2023 Patient:?Reuben Rome :1965???Age:58 Y???Sex:Male Address:[address] [place] [address] [place] [id number] * true * Date:? Generated for Printi ng/Faxing/eTransmitting on:?09/08/2024 08:10 AM EST
--- OUTSIDE RECORDS SUMMARY | 2024-09-08 08:10 | XMS_ITS | Clinical Summary ---
Author Organization [facility] Address [address] [place] [id number] Care Team Providers Care Patent Drafter Name Role Phone Gio Valdez MD Primary Care Provider [phone] Allergies No known active allergies Medications No known medications Active Problems No known active problems Social History Tobacco Use Types Packs/Day Years Used Date Smoking Tobacco: Never Smokeless Tobacco: Never Sex and Gender Information Value Date Recorded Sex Assigned at Not on file Gender Identity Not on file Sexual Orientation Not on file Last Filed Vital Signs Vital Sign Reading Time Taken Comments Blood Pressure 121/82 03/16/2020 2:55 PM EDT Pulse 65 03/16/2020 2:55 PM EDT Temperature 36.3 ??C (97.4 ??F) 03/16/2020 2:13 PM ED T Respiratory Rate 16 03/16/2020 2:55 PM EDT Oxygen Saturation 96% 03/16/2020 2:55 PM EDT Inhaled Oxygen Concentration - - Weight 86.2 kg (190 lb) 03/31/2020 3:40 PM EDT Height 177.8 cm (5' 10 ) 03/31/2020 3:40 PM EDT Body Mass Index 27.26 03/31/2020 3:40 PM EDT Plan of Treatment Health Maintenance Due Date Last Done Comments Hepatitis C Virus Screening 1965 HIV Screening 1977 DTaP/Tdap/Td Vaccines (1 - Tdap) 1983 Colonoscopy 2009 Pneumococcal Vaccines 50+ (1 of 1 - PCV) 2014 Zoster (Shingles) Vaccine (1 of 2) 2014 Influenza Vaccine 03/11/2024 COVID-19 Vaccine ( - 2023-2 5 season) 2024 RSV Vaccine 60 years and old er and Patients (1 - 1-dose 75+ series) 2039 Hepatitis B Vaccines Aged Out No long er eligible based on patient's age to complete this topic Pneumococcal Vaccine: Pediat gilmar (0-5 Years) and At-Risk Patients (6 to 49 Years) Aged Out No longer eligible b ased on patient's age to complete this topic Care Teams Patent Drafter Relationship Specialty Start Date End Date Gio Valdez MD [address] [place] [address] [address] [place], [place] [phone] PCP - General Internal Medicine 02/14/20
--- OUTSIDE RECORDS SUMMARY | 2024-09-08 08:10 | XMS_ITS ---
Author Organization Gio Valdez MD Address [address] [place], [place] [id number] Care Team Providers Care Credit Card Analyst Name Role Phone Gio Valdez Primary Care Provider Allergies No Known Allergies REASON FOR VISIT annual visit, No Covid symtoms, c/o right knee pain as of this AM Medications Medication SIG (Take, Route, Fr equency, Duration) Notes Start Date End Date Status predniSONE 20 MG 2 tablets Orally Onc e a day for 5 days 11/27/2023 Active Allopurinol 300 MG TAKE 1 TABLET BY GEORGE TH EVERY DAY Active predniSONE 20 MG 2 tablets Oral Once a day for 5 days 09/03/2022 Not-Taking CeleBREX 200 MG 1 capsule with food Orally Once a day for 20 days 11/29/2021 Not-Takin g Indomethacin 50 MG 1 capsule with food Orally Three times a day for 30 days Ac tive Social History Tobacco Use: Social History Observation Description Date Details (start date - stop date) Never Smoker NA - NA Tobacco Use/Smoking Question Answer Notes Patient is a nonsmoker Additional Findings: Tobacco Non-User Cu rrent non-smoker, currently using no form of tobacco Alcohol Screen Question Answer Notes Did you have a drink contain ing alcohol in the past year? Yes How often did you have a dri nk containing alcohol in the past year? 4 or more times a week (4 points) How many drinks did you have on a typical day when you were drinking in the past year? 1 or 2 drinks (0 point) How often did you have 6 or more drinks on one occasion in the past year? 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 Vital Signs Blood pressure systolic 132 mm Hg 11/27/19 24 Blood pressure diastolic 80 mm Hg 024 Height 70 in 11/27/2023 Weight 212 lbs 11/27/2023 BMI 30.42 kg/m2 11/27/2023 weight is up 6 pounds since 04-25-23 Encounters Encounter Location Date Provider Diagnosis Gio Valdez MD [address] [place] [address] Drive [address] [place], [place] [id number] 11/27/2023 Gio Valdez Other secondary acut e gout of right knee M10.461 ; Annual physical exam Z00.00 ; Other hemochromatosis E83.118 ; Prediabetes R73.09 ; Rising PSA level R97.20 ; Anemia, unspecified D64.9 ; Colon cancer screening Z12.11 and Depression screening Z13.31 Assessments Encounter Date Diagnosis (ICD Code) Assessment Notes Treatment Notes Treatment Clinical Notes Section Notes 11/27/2023 Other secondary acute gout of right knee (ICD-10 - M10.461) will continue current regiment and will contniue to monitor 11/27/2023 Annual physical exam (ICD-10 - Z00.00) labs reviewed and discussed with patient 11/27/2023 Other hemochromatosis (ICD-10 - E83.118) needs fe tibc and ferritan yearly. is getting blood taken every 3 months. 11/27/2023 Prediabetes (ICD-10 - R73.09) stable, no need for medication at this time 11/27/2023 Rising PSA level (ICD-10 - R97.20) stable, will continue to monitor 11/27/2023 Anemia, unspecified (ICD-10 - D64.9) has resolved 11/27/2023 Colon cancer screening (ICD-10 - Z12.11) guaiac negative 11/27/2023 Depression screening (ICD-10 - Z13.31) negative screen Plan Of Treatment Medication Medication Name Sig Start Date Stop Date Notes predniSONE 20 MG 2 tablets Orally Once a day for 5 days Allopurinol 300 MG TAKE 1 TABLET BY MOUTH EVERY DAY Indomethacin 50 MG 1 capsule with food Orally Three times a day for 30 days Treatment Notes Assessment Notes Other secondary acute gout of right knee will continue current regiment and will contniue to monitor Annual physical exam labs reviewed and d iscussed with patient Other hemochromatosis needs fe tibc and ferritan yearly. is getting blood taken every 3 months. Prediabetes stable, no need for medication at this time Rising PSA level stable, will continu e to monitor Anemia, unspecified has resolved Colon cancer screening guaiac negative Depression screening negative screen Next Appt Details Follow Up: 1 Year, Reason: Provider Name:Gio Tran iestan, 11/25/2024 07:15:00 AM, [address], [address], [place], [place], [phone], Provider Name:Gio mcneill, 12/02/2024 08:00:00 AM, [address], [address], [place], [place], [id number], Progress Notes * Reuben HINKLEDOB: [birth year] (58 yo M)Acc No.[id number]:11/27/2023 Progress Notes Patient:?WildReuben Provider:?Gio Valdez MD :1965???Age:58 Y???Sex:Male Jone e:11/27/2023 Address:[address] [place], [place] [id number] Subjective: * Chief Complaints: * ???Annual visitNo Covid symt omsc/o right knee pain as of this AM * HPI: ???Depression Screening:?PHQ-9?Little interest or pleasure in doing things?Not at all,?Feeling down, depressed, or hopeless?Not at all,?Trouble falling or staying asleep, or sleeping too much?Not at all,?Feeling tired or having little energy?Not at all,?Poor appetite or overeating?Not at all,?Feeling bad about yourself or that you are a failure, or have let yourself or your family down?Not at all,?Trouble concentrating on things, such as reading the newspaper or watching television?Not at all,?Moving or speaking so slowly that other people could have noticed; or the opposite, being so fidgety or restless that you have been moving around a lot more than usual?Not at all,?Thoughts that you would be better off or of hurting yourself in some way?Not at all,?Total Score?0.?Interpretation and Intervention?Depression Screening Findings?Negative,?Follow-Up for Depression?: review of PHQ-9 found negative result, no follow-up needed.? patient is a 58 yo male here for annual visit with review of recent labs and follow up of chronic issues. knee has been hurting for a couple days. is swollen. took indomethiscin and is better. is probably gout. ???Communication Needs:?Communication Needs?Does the patient have a hearing impairment?No,?Does the patient have a vision impairment??Yes,?If yes, what is the vision impairment??Glasses,?Does the patient have a cognition impairment??No.?SDOH Questions:?SDOH Questions?In the past year have you been worried about losing housing??No,?In the past year have you or any family members you live with been unable to get any of the following when it was really needed? Check all that apply:?None.? * ROS:?General/Constitutional:?Patient denies?fatigue , headache.?Change in appetite?denies.?Chills?denies.?Fever?denies.?Ophthalmologic:?Blurred vision?denies.?Discharge?denies.?Pain?denies.?ENT:?Patient denies?decreased sense of smell , any loss of taste , sore throat.?Decreased hearing?denies.?Sore throat?denies.?Swollen glands?denies.?Endocrine:?Cold intolerance?denies.?Excessive thirst?denies.?Heat intolerance?denies.?Weight loss?denies.?Respiratory:?Cough?denies.?Shortness of breath at rest?denies.?Shortness of breath with exertion?denies.?Wheezing?denies.?Cardiovascular:?Chest pain at rest?denies.?Chest pain with exertion?denies.?Irregular heartbeat?denies.?Shortness of breath?denies.?Gastrointestinal:?Abdominal pain?denies.?Change in bowel habits?denies.?Diarrhea?denies.?Nausea?denies.?Rectal bleeding?denies.?Vomiting?denies .?Genitourinary:?Blood in urine?denies.?Difficulty urinating?denies.?Frequent urination?denies.?Musculoskeletal:?Patient denies?muscle aches.?Painful joints?denies.?Weakness?denies.?Peripheral Vascular:?Patient denies?red and blue toes.?Skin:?Dry skin?denies.?Itching?denies.?Denies?Mole(s),? changes in moles, new moles or any lesions of concern.?Denies?Photosensitivity.?Rash?denies.?Neurologic:?Dizziness?denies.?Fainting?denies.?Headache?denies.? * Medical History:? * Surgical History:? * Hospitalization/Major Diagno stic Procedure:? * Family History:?Father: dece ased 44 yrs, dietetic aide and killed.?Mother: 69 yrs, pancreatic cancer.?Maternal uncle: , pancreatic cancer.?Maternal aunt: , pancreatic cancer.?2 brother(s) , 1 sister(s) - healthy. .? fATHER- BUILDING DRAFTING OFFICER MOTHER-PANCREATIC CANCER, Denies mental health/substance abuse family history, No pertinent family medical history, No pertinent family medical history, Denies mental health/substance abuse family history. * Social History:?Tobacco Use:?Tobacco Use/Smoking?Patient is a?nonsmoker,?Additional Findings: Tobacco Non-User?Current non-smoker, currently using no form of tobacco.?Drugs/Alcohol:?Alcohol Screen?Did you have a drink containing alcohol in the past year??Yes,?How often did you have a drink containing alcohol in the past year??4 or more times a week (4 points),?How many drinks did you have on a typical day when you were drinking in the past year??1 or 2 drinks (0 point),?How often did you have 6 or more drinks on one occasion in the past year??Never (0 point),?Points?4,?Interpretation?Positive.?Miscellaneous:?no Caffeine. no Children. Community involvements: yes. Exercise: yes, WALKING X 30 MINUTES 2 TIMES A WEEK. Home smoke detector use: yes. Marital status: . 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 Pets: cats: dogs: 3 dogs. no Travel outside of the [place]. * Medications:?TakingAllopurin ol 300 MG Tablet TAKE 1 TABLET BY MOUTH EVERY DAY Taking Allopurinol 300 MG Tablet TAKE 1 TABLET BY MOUTH EVERY DAY Not- Taking/PRNIndomethacin 50 MG Capsule 1 capsule with food Orally Three times a daypredniSONE 20 MG Tablet 2 tablets Oral Once a dayCeleBREX 200 MG Capsule 1 capsule with food Orally Once a dayMedication List reviewed and reconciled with the patientNot-Taking/PRN Indomethacin 50 MG Capsule 1 capsule with food Orally Three times a dayNot- Taking/PRN predniSONE 20 MG Tablet 2 tablets Oral Once a dayNot-Taking/PRN CeleBREX 200 MG Capsule 1 capsule with food Orally Once a dayMedication List reviewed and reconciled with the patient * Allergies:?N.K.D.A.yes[Aller gies Verified] Objective: * Vitals:?Ht: 70, Wt:212, BMI: 30.42, BP:132/80 weight is up 6 pounds since 04-25-23. * ???Past Orders: ???Lab:UA ClnCatch+Micro w/r flx Cult (Order Date - 11/14/2023) (Collection Date - 11/14/2023) ? Value Reference Range ?Color Urine Yellow - ?Appearance Urine Clear - ?PH 6.5 5.0-9.0 - ?Glucose Urine UA Negative Neg ative - mg/dL ?Urine Blood Negative Negative - ?Specific Barnett - Urine 1.010 1.005-1.025 - ?Urine Protein Negative Neg-Tr jenny - mg/dL ?Urine Ketones Negative Negati ve - mg/dL ?Nitrite Urine Negative Negati ve - ?Leukocyte Esterase Urine Negative Negative - ?RBC Urine 0-2 0-2 - /HPF ?WBC Urine 0-5 0-5 - /HPF ?Squamous Epithelial Cell Urine 0-2 0-2 - /HPF ?Bacteria Urine None Seen None Seen - ?Hyaline Casts Urine 0-2 0-2 - /LPF ???Lab:IRON PROFILE (Order D 11/14/2023) (Collection Date - 11/14/2023) ? Value Reference Range ?Iron 81 45-160 - mcg/dL ?Total Iron Binding Capacity 296 228-428 - mcg/dL ?Percent Iron Saturation 27 15-50 - % ?Unsaturated Iron Binding 215 - ug/dL ???Lab:PSA,Total (Free>4and< 10) (Order Date - 11/14/2023) (Collection Date - 11/14/2023) ? Value Reference Range ?PSA,Total (Free>4and<10) 2.38 0.00-4.00 - ng/mL ???Lab:Microalbumin, Random (Order Date - 11/14/2023) (Collection Date - 11/14/2023) ? Value Reference Range ?Creatinine Urine 75.93 - m g/dL ?Microalbumin Urine < 5.0 - mg/L ?Microalbum Creatinine Ratio Ur TNP <30 - ug/mg cr ???Lab:Complete Blood Count Auto Diff (Order Date - 11/14/2023) (Collection Date - 11/14/2023) ? Value Reference Range ?White Blood Count 6.5 4. 8-10.8 - X10*3/uL ?Red Blood Count 4.87 4.60 -5.80 - X10*6/uL ?Hemoglobin 15.7 14.0-18.0 - g/dl ?Hematocrit 45.8 42.0-52.0 - % ?Mean Corpuscular Volume 94.0 80.0-98.0 - fL ?Mean Corpuscular Hemoglobin 32.2 27.0-33.0 - pg ?Mean Corpuscular HGB Conc 34.3 31.0-36.0 - g/dl ?Red Cell Distribution Width 12.9 11.0-16.0 - % ?Platelet Count 259 160-4 00 - X10*3/uL ?Mean Platelet Volume 9.8 9.4-12.4 - fL ?Neutrophils Percent Auto 45.8 45-73 - % ?Imm Gran Pct Auto 0.3 0. 0-0.4 - % ?Lymphocytes Percent Auto 42.4 H 20-40 - % ?Monocytes Percent Auto 7.8 2-11 - % ?Eosinophils Percent Auto 2.9 0-4 - % ?Basophils Percent Auto 0.8 0-2 - % ?NRBC Pct Auto 0.0 0.0-0. 2 - /100WBC ?Neutrophils Absolute Auto 3.0 2.0-8.3 - x10*3/uL ?Imm Gran Abs Auto 0.02 0. 00-0.03 - X10*3/uL ?Lymphocytes Absolute Auto 2.8 1.2-4.9 - X10*3/uL ?Monocytes Absolute Auto 0.5 0.1-1.2 - X10*3/uL ?Eosinophils Absolute Auto 0.2 0.0-0.4 - X10*3/uL ?Basophils Absolute Auto 0.1 0.0-0.2 - X10*3/uL ?NRBC Abs Auto 0.000 0.0-0. 012 - X10*3/uL ???Lab:Hemoglobin A1c (Order Date - 11/14/2023) (Collection Date - 11/14/2023) ? Value Reference Range ?Hemoglobin A1c % 4.8 <6. 0 - % ?Estimated Average Glucose 91 - mg/dL ???Lab:Com[facility]. P darian Fast (Order Date - 11/14/2023) (Collection Date - 11/14/2023) ? Value Reference Range ?Sodium 141 135-145 - mmo l/L ?Bilirubin Total 1.2 H 0.0- 1.0 - mg/dL ?Aspartate Amino Transferase 25 5-37 - U/L ?Alanine Aminotransferase 27 0-40 - U/L ?Total Protein 6.8 6.5-8. 0 - g/dL ?Albumin Level 4.1 3.5-5. 0 - g/dL ?Alkaline Phosphatase 60 39-117 - U/L ?Potassium 4.1 3.3-5.1 - mmol/L ?Chloride 105 96-108 - mm ol/L ?Carbon Dioxide 28 22-29 - mmol/L ?Anion Gap 12 12-20 - ?Blood Urea Nitrogen 11 9-16 - mg/dL ?Creatinine 0.91 0.5-1.4 - mg/dL ?Estimated Glomerular Filt Rate > 60 - ?Glucose Fasting 104 H 60-9 9 - mg/dL ?Calcium 9.1 8.4-10.2 - m g/dL * Examination: ???General Examination: ?GENERAL APPEARANCE:?well developed, well nourished, in no acute distress.?HEAD:?normocephalic, atraumatic.?EYES:?pupils equal, round, reactive to light and accommodation, sclera non-icteric.?EARS:?normal.?ORAL CAVITY:?mucosa moist.?THROAT:?clear.?NECK/THYROID:?neck supple, full range of motion, no cervical lymphadenopathy, no bruits.?SKIN:?warm and dry, no suspicious lesions.?HEART:?regular rate and rhythm, S1, S2 normal, no murmurs.?LUNGS:?clear to auscultation bilaterally.?ABDOMEN:?soft, nontender, nondistended, bowel sounds present, normal, no organomegaly , no masses palpable.?RECTAL EXAM:?normal tone, no external hemorrhoids, no masses palpable, prostate normal, stool guaiac negative.?MALE GENITOURINARY:?circumcised, no penile lesions or discharge, testes descended bilaterally.?EXTREMITIES:?no clubbing, cyanosis, or edema.?NEUROLOGIC:?nonfocal, motor strength normal upper and lower extremities, sensory exam intact.? Assessment: * Assessment: 1.?Annual physical exam - Z0 0.00 (Primary)?2.?Other secondary acute gout of right knee - M10.461?3.?Other hemochromatosis - E83.118?4.?Prediabetes - R73.09?5.?Rising PSA level - R97.20?6.?Anemia, unspecified - D64.9?7.?Colon cancer screening - Z12.11?8.?Depression screening - Z13.31? Plan: * Treatment: 2.?Other secondary acute gou t of right knee? Continue Indomethacin Capsule, 50 MG, 1 capsule with food, Orally, Three times a day, 30 days, 90, Refills 2;?Start predniSONE Tablet, 20 MG, 2 tablets, Orally, Once a day, 5 days, 10 Tablet, Refills 1;?Continue Allopurinol Tablet, 300 MG, TAKE 1 TABLET BY MOUTH EVERY DAY.?? Notes: will continue current regiment and will contniue to monitor.?? 3.?Other hemochromatosis? Notes: needs fe tibc and ferritan yearly. is getting blood taken every 3 months.?? 4.?Prediabetes? Notes: stable, no need for medication at this time.?? 5.?Rising PSA level? Notes: stable, will continue to monitor.?? 6.?Anemia, unspecified? Notes: has resolved.?? 7.?Colon cancer screening? Notes: guaiac negative.?? 8.?Depression screening? Notes: negative screen.?? * Procedure Codes:? * Follow Up:?1 Year * * Sign off status: Completed true * Provider:?Gio Valdez MD Date:?0 11/27/2023 Generated for Barb jonas/Darian/Cathleensmitting on:?09/08/2024 08:10 AM EST History and Physical Notes * HPI (History of Present Illness) Category Sub-Category Detail Notes Category Not es Depression Screening PHQ-9 Little inte rest or pleasure in doing things: Not at all patient is a 58 yo male here for annual visit with review of recent labs and follow up of chronic issues. knee has been hurting for a couple days. is swollen. took indomethiscin and is better. is probably gout. Feeling down, depressed, or hopeless: No t at all Trouble falling or staying asleep, or sl eeping too much: Not at all Feeling tired or having little energy: N ot at all Poor appetite or overeating: Not at all Feeling bad about yourself o r that you are a failure, or have let yourself or your family down: Not at all Trouble concentrating on thi ngs, such as reading the newspaper or watching television: Not at all Moving or speaking so slowly that other people could have noticed; or the opposite, being so fidgety or restless that you have been moving around a lot more than usual: Not at all Thoughts that you would be b larry off or of hurting yourself in some way: Not at all Total Score: 0 Interpretation and Intervention Depression Cristiano chaparro Findings: Negative Follow-Up for Depression: : review of PH Q-9 found negative result, no follow-up needed SDOH Questions SDOH Questions In the past year have you been worried about losing housing?: No In the past year have you or any family members you live with been unable to get any of the following when it was really needed? Check all that apply:: None Communication Needs Communication Needs Does the patient have a hearing impairment: No Does the patient have a vision impairmen t?: Yes ?If yes, what is the vision impairment?: Glasses Does the patient have a cognition impair ment?: No Examination Category Sub-Category Detail Notes Category Not es General Examination GENERAL APPEARANCE: well dev eloped, well nourished, in no acute distress HEAD: normocephalic, atrau matic EYES: pupils equal, round, reactive to light and accommodation, sclera non- icteric EARS: normal THROAT: clear NECK/THYROID: neck supple, full ra nge of motion, no cervical lymphadenopathy, no bruits HEART: regular rate and rhy thm, S1, S2 normal, no murmurs LUNGS: clear to auscultatio n bilaterally ABDOMEN: soft, nontender, non distended, bowel sounds present, normal, no organomegaly , no masses palpable NEUROLOGIC: nonfocal, motor stre ngth normal upper and lower extremities, sensory exam intact SKIN: warm and dry, no sunny picious lesions EXTREMITIES: no clubbing, cyanosi s, or edema MALE GENITOURINARY: circumcised, no peni le lesions or discharge, testes descended bilaterally RECTAL EXAM: normal tone, no exte rnal hemorrhoids, no masses palpable, prostate normal, stool guaiac negative ORAL CAVITY: mucosa moist
[2024-09-08 09:51] LABS: Ferritin 62 ng/mL (20-250)
== END 2024-09-08 08:03 | disposition home or self-care (01) ==
LOC: HO.BBR 08:02
PROVIDERS: PCP Internal Medicine; Visit Provider Internal Medicine
DX: E83.110 Hereditary hemochromatosis (principal)
CPT/HCPCS: 36415; 82728

== ENCOUNTER 2024-11-25 11:31 | Outpatient (REF) | payer OTHER, SELFPAY ==
[2024-11-25 11:34] LABS: MANUAL DIFF FLAG NO
[2024-11-25 11:41] LABS: Appearance Urine Clear; Basophils Percent Auto 0.2 % (0-2); Color Urine Yellow; Eosinophils Absolute Auto 0.1 X10*3/uL (0.0-0.4); Eosinophils Percent Auto 0.9 % (0-4); Glucose Urine UA Negative (Negative); Hematocrit 44.6 % (42.0-52.0); Hemoglobin 15.1 g/dl (14.0-18.0); Imm Gran Abs Auto 0.04 X10*3/uL (0.00-0.03); Imm Gran Pct Auto 0.5 % (0.0-0.4); Leukocyte Esterase Urine Negative (Negative); Lymphocytes Absolute Auto 3.4 X10*3/uL (1.2-4.9); Lymphocytes Percent Auto 42.1 % (20-40); Mean Corpuscular HGB Conc 33.9 g/dl (31.0-36.0); Mean Corpuscular Hemoglobin 32.8 pg (27.0-33.0); Mean Corpuscular Volume 96.7 fL (80.0-98.0); Mean Platelet Volume 9.8 fL (9.4-12.4); Monocytes Absolute Auto 0.6 X10*3/uL (0.1-1.2); Monocytes Percent Auto 7.5 % (2-11); Neutrophils Percent Auto 48.8 % (45-73); Nitrite Urine Negative (Negative); PH 5.5 (5.0-9.0); Platelet Count 243 X10*3/uL (160-400); Red Blood Count 4.61 X10*6/uL (4.60-5.80); Red Cell Distribution Width 12.6 % (11.0-16.0); Urine Blood Negative (Negative); Urine Ketones Negative (Negative); Urine Protein Negative (Neg-Trace); White Blood Count 8.2 X10*3/uL (4.8-10.8)
[2024-11-25 11:44] LABS: Bacteria Urine None Seen (None Seen); Hyaline Casts Urine 0-2 /LPF (0-2); RBC Urine 0-2 /HPF (0-2); Squamous Epithelial Cell Urine 0-2 /HPF (0-2); WBC Urine 0-5 /HPF (0-5)
[2024-11-25 12:08] LABS: Estimated Average Glucose 94 mg/dL; Hemoglobin A1C 123.7407 umol/L; Hemoglobin A1c % 4.9 % (<6.0); Total Hemoglobin (HGBA1C) 4116.8161 umol/L
[2024-11-25 12:16] LABS: Creatinine Urine 88.32 mg/dL; Microalbumin Urine < 5.0 mg/L
[2024-11-25 12:19] LABS: Alanine Aminotransferase 26 U/L (0-40); Anion Gap 13 (12-20); Aspartate Amino Transferase 26 U/L (5-37); Bilirubin Total 1.3 mg/dL (0.0-1.0); Blood Urea Nitrogen 28 mg/dL (9-16); Calcium 9.2 mg/dL (8.4-10.2); Carbon Dioxide 25 mmol/L (22-29); Chloride 105 mmol/L (96-108); Cholesterol 191 mg/dL (<200); Estimated Glomerular Filt Rate > 60; Glucose Fasting 112 mg/dL (60-99); HDL Cholesterol 71 mg/dL (>40); LDL Cholesterol Calculated 96 mg/dL (<100); Potassium 4.2 mmol/L (3.3-5.1); Sodium 139 mmol/L (135-145); Total Protein 6.7 g/dL (6.5-8.0); Triglycerides 120 mg/dL (<150)
[2024-11-25 12:27] LABS: Alkaline Phosphatase 56 U/L (39-117); Ferritin 57 ng/mL (20-250)
--- OUTSIDE RECORDS SUMMARY | 2024-11-25 14:19 | XMS_ITS ---
Author Organization Gio Valdez MD Address [address] [place], [place] [id number] Care Team Providers Care Resistance Welder Name Role Phone Gio Valdez Primary Care Provider Results Component Value Reference Range Notes Complete Blood Count Auto Di ff Reviewed date:11/14/2023 02:22:58 PM Interpretation: Performing Lab:[facility], [address] [place] [phone] Notes/Report: White Blood Count 6.5 4.8-10.8 X10*3/uL Red Blood Count 4.87 4.60-5.80 X10*6/uL Hemoglobin 15.7 14.0-18.0 g/dl Hematocrit 45.8 42.0-52.0 % Mean Corpuscular Volume 94.0 80.0-98.0 fL Mean Corpuscular Hemoglobin 32.2 27.0-33.0 pg Mean Corpuscular HGB Conc 34.3 31.0-36.0 g/dl Red Cell Distribution Width 12.9 11.0-16.0 % Platelet Count 259 160-400 X10*3/uL Mean Platelet Volume 9.8 9.4-12.4 fL Neutrophils Percent Auto 45.8 45-73 % Imm Gran Pct Auto 0.3 0.0-0.4 % Lymphocytes Percent Auto 42.4 20-40 % Monocytes Percent Auto 7.8 2-11 % Eosinophils Percent Auto 2.9 0-4 % Basophils Percent Auto 0.8 0-2 % NRBC Pct Auto 0.0 0.0-0.2 /100WBC Neutrophils Absolute Auto 3.0 2.0-8.3 x10*3/u L Imm Gran Abs Auto 0.02 0.00-0.03 X10*3/uL Lymphocytes Absolute Auto 2.8 1.2-4.9 X10*3/u L Monocytes Absolute Auto 0.5 0.1-1.2 X10*3/uL Eosinophils Absolute Auto 0.2 0.0-0.4 X10*3/u L Basophils Absolute Auto 0.1 0.0-0.2 X10*3/uL NRBC Abs Auto 0.000 0.0-0.012 X10*3/uL Comprehensive [place]. Panel Fa st Reviewed date:11/14/2023 02:25:09 PM Interpretation: Performing Lab:[facility], [address] [place] [id number] Notes/Report: Sodium 141 135-145 mmol/L Potassium 4.1 3.3-5.1 mmol/L Chloride 105 96-108 mmol/L Carbon Dioxide 28 22-29 mmol/L Anion Gap 12 12-20 Blood Urea Nitrogen 11 9-16 mg/dL Creatinine 0.91 0.5-1.4 mg/dL Estimated Glomerular Filt Rate > 60 NOTE: For -Slov[place] individuals, multiply the result by 1.210. Chronic Kidney Disease: Estimated GFR < 60 mL/min/1.73m2 Severe Kidney Disease: Estimated GFR < 15 mL/min/1.73m2 Glucose Fasting 104 60-99 mg/dL A fasting glucose from 100-125 mg/dl is considered impaired (pre-diabetes). Calcium 9.1 8.4-10.2 mg/dL Bilirubin Total 1.2 0.0-1.0 mg/dL Aspartate Amino Transferase 25 5-37 U/L Alanine Aminotransferase 27 0-40 U/L Total Protein 6.8 6.5-8.0 g/dL Albumin Level 4.1 3.5-5.0 g/dL Alkaline Phosphatase 60 39-117 U/L IRON PROFILE Reviewed date:11/14/2023 02:03:56 PM Interpretation: Performing Lab:[facility], [address] [place] [phone] Notes/Report: Iron 81 45-160 mcg/dL Total Iron Binding Capacity 296 228-428 mcg/d L Percent Iron Saturation 27 15-50 % Unsaturated Iron Binding 215 Lipid Panel Reviewed date:11/14/2023 02:00:51 PM Interpretation: Performing Lab:[facility], [address] [place] [phone] Notes/Report: Triglycerides 57 <150 mg/dL Desirable Triglyceride: less than 150 mg/dL Borderline High Triglyceride 150-199 mg/dL High Triglyceride: 200-499 mg/dL Very High Triglyceride: greater than or equal to 5OO mg/dL Cholesterol 168 <200 mg/dL Desirable Cholesterol: less than 200 mg/dL Borderline High Cholesterol: 200-239 mg/dL High Cholesterol: greater than 239 mg/dL LDL Cholesterol Calculated 87 <100 mg/dL Desirable LDL: less than 100 mg/dL Near Optimal/Above Optimal LDL: 110-129 mg/dL Borderline High LDL: 130-159 mg/dL High LDL: 160-189 mg/dL Very High LDL: greater than or equal to 190 mg/dL HDL Cholesterol 70 >40 mg/dL Desirable HDL: greater than 40 mg/dL Note: This HDL assay may give artificially low results in patients with liver disease. PSA,Total (Free>4and<10) Reviewed date:11/14/2023 02:00:32 PM Interpretation: Performing Lab:[facility], [address] [place] [id number] Notes/Report: PSA,Total (Free>4and<10) 2.38 0.00-4.00 ng/mL A Free PSA was not [...] Chemiluminescent Microparticle Immunoassay (CMIA) Microalbumin, Random Reviewed date:11/14/2023 02:01:48 PM Interpretation: Performing Lab:[facility], [address] [place] [id number] Notes/Report: Creatinine Urine 75.93 Microalbumin Urine < 5.0 Microalbum/Creatinine Ratio Ur TNP <30 ug/mg cr Unable to calculate albumin/creatinine ratio due to low microalbumin or creatinine result. Hemoglobin A1c Reviewed date:11/14/2023 02:00:24 PM Interpretation: Performing Lab:[facility], [address] [place] [id number] Notes/Report: Hemoglobin A1c % 4.8 <6.0 % Hemoglobin A1C Reference Range Adults: 4.8 - 6.0 % Non diabetic: < 6.0 % Goal: < 7.0 % Additional Action Suggested: > 8.0 % Note: Hemoglobin A1c results are invalid for patients with abnormal amounts of HbF. Blood transfusions may impact the HbA1c concentration in the patient sample. Estimated Average Glucose 91 eAG = Estimated average glucose which is %A1C expressed as average glucose, using the formula of the T0L-Ilrdpnl Average Glucose study (ADAG), Diabetes Care, Vol.31,#8, Mar. 2007 UA ClnCatch+Micro w/rflx Cul t Reviewed date:11/14/2023 02:24:50 PM Interpretation: Performing Lab:[facility], [address] [place] [id number] Notes/Report: Urine, Clean Catch Color Urine Yellow Appearance Urine Clear PH 6.5 5.0-9.0 Glucose Urine UA Negative Negative mg/dL Urine Blood Negative Negative Specific [place] - Urine 1.010 1.005-1.025 Urine Protein Negative Neg-Trace mg/dL Urine Ketones Negative Negative mg/dL Nitrite Urine Negative Negative Leukocyte Esterase Urine Negative Negative RBC Urine 0-2 0-2 /HPF WBC Urine 0-5 0-5 /HPF Squamous Epithelial Cell Urine 0-2 0-2 /HPF Bacteria Urine None Seen None Seen Hyaline Casts Urine 0-2 0-2 /LPF REASON FOR VISIT yearly labs Encounters Encounter Location Date Provider Diagnosis Gio Valdez MD [address] [place], [place] [id number] 11/14/2023 Gio Valdez Blood tests for routine general physical examination Z00.00 ; Anemia, unspecified D64.9 ; Prediabetes R73.09 ; Rising PSA level R97.20 and Lymphocytosis D72.820 Assessments Encounter Date Diagnosis (ICD Code) Assessment Notes Treatment Notes Treatment Clinical Notes Section Notes 11/14/2023 Blood tests for routine general physical examination (ICD-10 - Z00.00) 11/14/2023 Anemia, unspecified (ICD-10 - D64.9) 11/14/2023 Prediabetes (ICD-10 - R73.09) 11/14/2023 Rising PSA level (ICD-10 - R97.20) 11/14/2023 Lymphocytosis (ICD-10 - D72.820) Plan Of Treatment Next Appt Details Provider Name:Gio mcneill, 12/02/2024 08:00:00 AM, [address], [address], [place], [place], [id number], Progress Notes * LALITOReuben SALGADODOB: [birth year] (59 yo M)Acc No.[id number]:11/14/2023 Progress Note Patient:?Reuben ROME Provider:?Gio Valdez MD :1965???Age:58 Y???Sex:Male Jone e:11/14/2023 Address:[address] [place], [place] [id number] Subjective: * Chief Complaints: * ???1. Yearly labs. * Medical History:? Objective: * Vitals:? Assessment: * Assessment: 1.?Blood tests for routine g eneral physical examination - Z00.00 (Primary)???2.?Anemia, unspecified - D64.9???3.?Prediabetes - R73.09???4.?Rising PSA level - R97.20???5.?Lymphocytosis - D72.820??? Plan: * Treatment: 2.?Anemia, unspecified?LAB: Complete Blood Count Auto Diff (Collection Date & Time - 11/14/2023 07:45 AM) ?LAB: Comprehensive [place]. Panel Fast (Collection Date & Time - 11/14/2023 07:45 AM) ?LAB: IRON PROFILE (Collection Date & Time - 11/14/2023 07:45 AM) ?LAB: Lipid Panel (Collection Date & Time - 11/14/2023 07:45 AM) ?LAB: PSA,Total (Free>4and<10) (Collection Date & Time - 11/14/2023 07:45 AM) ?LAB: Microalbumin, Random (Collection Date & Time - 11/14/2023 07:45 AM) ?LAB: Hemoglobin A1c (Collection Date & Time - 11/14/2023 07:45 AM) ?LAB: UA ClnCatch+Micro w/rflx Cult (Collection Date & Time - 11/14/2023 07:45 AM) 3.?Prediabetes?LAB: Complete Blood Count Auto Diff (Collection Date & Time - 11/14/2023 07:45 AM) ?LAB: [facility] [place]. Panel Fast (Collection Date & Time - 11/14/2023 07:45 AM) ?LAB: IRON PROFILE (Collection Date & Time 11/14/2023 07:45 AM) ?LAB: Lipid Panel (Collection Date & Time - 11/14/2023 07:45 AM) ?LAB: PSA,Total (Free>4and<10) (Collection Date & Time - 11/14/2023 07:45 AM) ?LAB: Microalbumin, Random (Collection Date & Time - 11/14/2023 07:45 AM) ?LAB: Hemoglobin A1c (Collection Date & Time - 11/14/2023 07:45 AM) ?LAB: UA ClnCatch+Micro w/rflx Cult (Collection Date & Time - 11/14/2023 07:45 AM) 4.?Rising PSA level?LAB: Complete Blood Count Auto Diff (Collection Date & Time - 11/14/2023 07:45 AM) ?LAB: [facility] [place]. Panel Fast (Collection Date & Time - 11/14/2023 07:45 AM) ?LAB: IRON PROFILE (Collection Date & Time - 11/14/2023 07:45 AM) ?LAB: Lipid Panel (Collection Date & Time - 11/14/2023 07:45 AM) ?LAB: PSA,Total (Free>4and<10) (Collection Date & Time - 11/14/2023 07:45 AM) ?LAB: Microalbumin, Random (Collection Date & Time - 11/14/2023 07:45 AM) ?LAB: Hemoglobin A1c (Collection Date & Time - 11/14/2023 07:45 AM) ?LAB: UA ClnCatch+Micro w/rflx Cult (Collection Date & Time - 11/14/2023 07:45 AM) 5.?Lymphocytosis?LAB: Complete Blood Count Auto Diff (Collection Date & Time - 11/14/2023 07:45 AM) ?LAB: [facility] [place]. Panel Fast (Collection Date & Time - 11/14/2023 07:45 AM) ?LAB: IRON PROFILE (Collection Date & Time - 11/14/2023 07:45 AM) ?LAB: Lipid Panel (Collection Date & Time - 11/14/2023 07:45 AM) ?LAB: PSA,Total (Free>4and<10) (Collection Date & Time - 11/14/2023 07:45 AM) ?LAB: Microalbumin, Random (Collection Date & Time - 11/14/2023 07:45 AM) ?LAB: Hemoglobin A1c (Collection Date & Time - 11/14/2023 07:45 AM) ?LAB: UA ClnCatch+Micro w/rflx Cult (Collection Date & Time - 11/14/2023 07:45 AM) * Procedure Codes:?97044 VENIP UNCT, ROUTINE* * * The named appointment provid er may or may not be the originator of this progress note, and it is not deemed complete until electronically signed by the appointment provider. Sign off status: Pending * Provider:?Gio Valdez MD Date:?0 11/14/2023 Generated for Barb jonas/Darian/eTransmitting on:?11/25/2024 02:19 PM EDT
--- OUTSIDE RECORDS SUMMARY | 2024-11-25 14:20 | XMS_ITS | Clinical Summary ---
Author Organization [facility] Address [address] [place] [address] Care Team Providers Care Collar Folder Operator Name Role Phone Gio Valdez MD Primary Care Provider [phone] Allergies No known active allergies Medications No known medications Active Problems No known active problems Social History Tobacco Use Types Packs/Day Years Used Date Smoking Tobacco: Never Smokeless Tobacco: Never Sex and Gender Information Value Date Recorded Sex Assigned at Not on file Legal Sex Male 12:08 PM EDT Gender Identity Not on file Sexual Orientation [...] 2) 2014 Influenza Vaccine 03/11/2024 COVID-19 Vaccine (1 - 2023-2 5 season) 2024 RSV Vaccine [...] on patient's age to complete this topic Insurance [facility] Care Teams Collar Folder Operator Relationship Specialty Start Date End Date Gio Valdez MD [address] [place] [address] [address] [place] [id number] PCP - General Internal Medicine 02/14/20
--- OUTSIDE RECORDS SUMMARY | 2024-11-25 14:20 | XMS_ITS ---
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 Vital Signs Blood pressure systolic 132 mm Hg 11/27/19 24 Blood pressure diastolic 80 mm Hg 024 Height 70 in 11/27/2023 Weight 212 lbs 11/27/2023 BMI 30.42 kg/m2 11/27/2023 weight is up 6 pounds since 04-25-23 Encounters Encounter Location Date Provider Diagnosis Gio Valdez MD [address] [place] [address] Drive [address] [place], [place] [phone] 11/27/2023 Gio Valdez Other secondary acut e [...] Up: 1 Year, Reason: Provider Name:Gio Tran ier, 12/02/2024 08:00:00 AM, [address], [address], [place], [id number], Progress Notes * MANAN MusabernardoDOB: [birth year] (58 yo M)Acc No.[id number]:11/27/2023 Progress Notes Patient:?Reuben Rome Provider:?Gio Valdez MD :1965???Age:58 Y???Sex:Male Jone e:11/27/2023 Address:[address] [place] [address], [id number] Subjective: * Chief Complaints: * ???Annual visitNo [...] * Family History:?Father: dece ased 44 yrs, radio officer and killed.?Mother: 69 yrs, pancreatic cancer.?Maternal uncle: , pancreatic cancer.?Maternal aunt: , pancreatic cancer.?2 brother(s) , 1 sister(s) - healthy. .? fATHER- FIXED INCOME MANAGER MOTHER-PANCREATIC CANCER, Denies mental health/substance abuse family [...] mg/dL ?Urine Blood Negative Negative - ?Specific [place] - Urine 1.010 1.005-1.025 - ?Urine Protein [...] ???Lab:IRON PROFILE (Order D 11/14/2023) (Collection Date 11/14/2023) ? Value Reference Range ?Iron 81 45-160 - mcg/dL ?Total Iron Binding Capacity 296 228-428 - mcg/dL ?Percent Iron Saturation 27 15-50 - % ?Unsaturated Iron Binding 215 - ug/dL ???Lab:PSA,Total (Free>4and< 10) (Order Date - 11/14/2023) (Collection Date - 11/14/2023) ? Value Reference Range ?PSA,Total (Free>4and<10) 2.38 0.00-4.00 - ng/mL ???Lab:Microalbumin, Random (Order Date 11/14/2023) (Collection Date - 11/14/2023) ? Value [...] ?Estimated Average Glucose 91 - mg/dL ???Lab:Comprehensive [place]. P darian Fast (Order Date - 11/14/2023) [...] Valdez MD Date:?0 11/27/2023 Generated for Barb jonas/Darian/eTjosesmitting on:?11/25/2024 02:19 PM EDT History and Physical Notes * HPI (History [...]
== END 2024-11-25 11:32 | disposition home or self-care (01) ==
LOC: HO.LNP 11:31
PROVIDERS: Visit Provider Internal Medicine
DX: D64.9 Anemia, unspecified (principal); R73.09 Other abnormal glucose; R97.20 Elevated prostate specific antigen [PSA]; E83.118 Other hemochromatosis; Z00.00 Encounter for general adult medical examination without abnormal findings
CPT/HCPCS: 80053; 80061; 81001; 82043; 82570; 82728; 83036; 84153; 85025

== ENCOUNTER 2024-12-02 10:44 | Outpatient (REF) | payer OTHER, SELFPAY ==
[2024-12-02 11:23] LABS: Blood Urea Nitrogen 19 mg/dL (9-16); Uric Acid 4.3 mg/dL (3.4-7.0)
--- OUTSIDE RECORDS SUMMARY | 2024-12-02 12:35 | XMS_ITS ---
Author Organization Gio Valdez MD Address [address] [place], [place] [phone] Care Team Providers Care Gaming Cashier Name Role Phone Gio Valdez Primary Care Provider [phone] Results Component Value Reference Range Notes Complete Blood Count Auto Di ff Reviewed date:11/25/2024 06:13:42 PM Interpretation: Performing Lab:[facility], [address] [place] [phone] Notes/Report: White Blood Count 8.2 4.8-10.8 X10*3/uL [...] NRBC Abs Auto 0.000 0.0-0.012 X10*3/uL Comprehensive [place]. Panel Fa Reviewed date:11/26/2024 09:34:00 AM Interpretation: Performing Lab:[address] [phone] Notes/Report: Sodium 139 135-145 mmol/L Potassium 4.2 [...] Ferritin Reviewed date:11/25/2024 06:06:01 PM Interpretation: Performing Lab:[address] [phone] Notes/Report: Ferritin 57 20-250 ng/mL Lipid Panel Reviewed date:11/25/2024 06:07:22 PM Interpretation: Performing Lab:[facility] [address] [phone] Notes/Report: Triglycerides 120 <150 mg/dL Desirable Triglyceride: [...] (Free>4and<10) Reviewed date:11/25/2024 06:07:14 PM Interpretation: Performing Lab:[address] [phone] Notes/Report: PSA,Total (Free>4and<10) 2.50 0.00-4.00 ng/mL A [...] Random Reviewed date:11/25/2024 06:07:04 PM Interpretation: Performing Lab:[address] [phone] Notes/Report: Creatinine Urine 88.32 Microalbumin Urine < 5.0 Microalbum/Creatinine Ratio Ur TNP <30 ug/mg cr Unable to calculate albumin/creatinine ratio due to low microalbumin or creatinine result. Hemoglobin A1c Reviewed date:11/25/2024 06:06:21 PM Interpretation: Performing Lab:[facility], [address] [place] [phone] Notes/Report: Hemoglobin A1c % 4.9 <6.0 % [...] average glucose, using the formula of the D9K-Fstkzsl Average Glucose study (ADAG), Diabetes Care, Vol.31,#8, 2007 UA ClnCatch+Micro w/rflx Cul t Reviewed date:11/25/2024 06:10:51 PM Interpretation: Performing Lab:[facility], [address] [place] [phone] Notes/Report: Urine, Clean Catch Color Urine Yellow Appearance Urine Clear PH 5.5 5.0-9.0 Glucose Urine UA Negative Negative mg/dL Urine Blood Negative Negative Specific [place] - Urine 1.020 1.005-1.025 Urine Protein Negative [...] Location Date Provider Diagnosis Gio Valdez MD [address] [place] [address] Drive [address] [place], [place] [id number] 11/25/2024 Gio Valdez Blood tests for rout [...] 07:30:00 AM, [address], [address], [place], [place], [phone], Provider Name:Gio Tran ier, 11/29/2025 07:15:00 AM, [address], [address], [place], [place], [phone], Provider Name:Gio Tran ier, 12/05/2025 08:30:00 AM, [address], [address], [place], [place], [phone], Progress Notes * Reuben ROMEDOB: [birth year] (59 yo M)Acc No.[id number]:11/25/2024 Progress Note Patient:?Reuben ROME Provider:?Gio Valdez MD :1965???Age:59 Y???Sex:Male Jone e:11/25/2024 Address:[address] [place], [place] [phone] Subjective: * Chief Complaints: * ???1. Yearly fasting labs. * Medical History:? Objective: * Vitals:? Assessment: * Assessment: 1.?Blood tests for routine g eneral physical examination - Z00.00 (Primary)???2.?Anemia, unspecified - D64.9???3.?Prediabetes - R73.09???4.?Rising PSA level - R97.20???5.?Other hemochromatosis - E83.118??? Plan: * Treatment: 2.?Anemia, unspecified?LAB: Complete Blood Count Auto Diff (Collection Date & Time - 11/25/2024 07:15 AM) ?LAB: Comprehensive [place]. Panel Fast (Collection Date & Time - 11/25/2024 07:15 AM) ?LAB: Lipid Panel (Collection Date & Time 11/25/2024 07:15 AM) ?LAB: PSA,Total (Free>4and<10) (Collection Date & Time - 11/25/2024 07:15 AM) ?LAB: Microalbumin, Random (Collection Date & Time 11/25/2024 07:15 AM) ?LAB: Hemoglobin A1c (Collection Date & Time - 11/25/2024 07:15 AM) ?LAB: UA ClnCatch+Micro w/rflx Cult (Collection Date & Time - 11/25/2024 07:15 AM) 3.?Prediabetes?LAB: Complete Blood Count Auto Diff (Collection Date & Time - 11/25/2024 07:15 AM) ?LAB: Comprehensive [place]. Panel Fast (Collection Date & Time 11/25/2024 07:15 AM) ?LAB: Lipid Panel (Collection Date & Time 11/25/2024 07:15 AM) ?LAB: PSA,Total (Free>4and<10) (Collection Date & Time 11/25/2024 07:15 AM) ?LAB: Microalbumin, Random (Collection Date & Time 11/25/2024 07:15 AM) ?LAB: Hemoglobin A1c (Collection Date & Time 11/25/2024 07:15 AM) ?LAB: UA ClnCatch+Micro w/rflx Cult (Collection Date & Time 11/25/2024 07:15 AM) 4.?Rising PSA level?LAB: Complete Blood Count Auto Diff (Collection Date & Time 11/25/2024 07:15 AM) ?LAB: Comprehensive [place]. Panel Fast (Collection Date & Time 11/25/2024 07:15 AM) ?LAB: Lipid Panel (Collection Date & Time - 11/25/2024 07:15 AM) ?LAB: PSA,Total (Free>4and<10) (Collection Date & Time - 11/25/2024 07:15 AM) ?LAB: Microalbumin, Random (Collection Date & Time - 11/25/2024 07:15 AM) ?LAB: Hemoglobin A1c (Collection Date & Time - 11/25/2024 07:15 AM) ?LAB: UA ClnCatch+Micro w/rflx Cult (Collection Date & Time - 11/25/2024 07:15 AM) 5.?Other hemochromatosis?LAB: Ferritin (Collection Date & Time - 11/25/2024 07:15 AM) * Procedure Codes:?79267 VENIP UNCT, ROUTINE* * * The named appointment provid er may or may not be the originator of this progress note, and it is not deemed complete until electronically signed by the appointment provider. Sign off status: Pending * Provider:?Gio Valdez MD Date:?0 11/25/2024 Generated for Barb jonas/Darian/Larisaitting on:?12/02/2024 12:35 PM EDT
--- OUTSIDE RECORDS SUMMARY | 2024-12-02 12:36 | XMS_ITS | Clinical Summary ---
Author Organization [facility] Address [address] [place] [id number] Care Team Providers Care Process Control Tech Name Role Phone Gio Valdez MD Primary Care Provider [phone] Allergies No known active allergies Medications No [...] Influenza Vaccine 03/11/2024 COVID-19 Vaccine (1 - 2024-2 5 season) 2024 RSV Vaccine 60 years and old er and Patients (1 - 1-dose 75+ series) 2039 Hepatitis B Vaccines Aged Out No long er eligible based on patient's age to complete this topic Insurance [facility] Care Teams Process Control Tech Relationship Specialty Start Date End Date Gio Valdez MD [address] [place] [address] [place] [id number] PCP - General Internal Medicine 02/14/20
--- OUTSIDE RECORDS SUMMARY | 2024-12-02 12:36 | XMS_ITS ---
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 Vital Signs Blood pressure systolic 132 mm Hg 11/27/19 24 Blood pressure diastolic 80 mm Hg 024 Height 70 in 11/27/2023 Weight 212 lbs 11/27/2023 BMI 30.42 kg/m2 11/27/2023 weight is up 6 pounds since 04-25-23 Encounters Encounter Location Date Provider Diagnosis Gio Valdez MD [address] [place] [address] Drive [address] [place], [place] [phone] 11/27/2023 Gio Valdez Other secondary acut e [...] Follow Up: 1 Year, Reason: Provider Name:Gio mcneill, 06/03/2025 07:30:00 AM, [address] [place] [address], Suite [facility], [place], [place], [phone], Provider Name:Gio mcneill, 11/29/2025 07:15:00 AM, [address] [place] [address], Suite [facility], [place], [place], [phone], Provider Name:Gio mcneill, 12/05/2025 08:30:00 AM, [address] [place] [address], Suite [facility], [place], [place], [phone], Progress Notes * Reuben HINKLEDOB: [birth year] (58 yo M)Acc No.[id number]:11/27/2023 Progress Notes Patient:Reuben Quinteros Provider:?Gio Valdez MD :1965???Age:58 Y???Sex:Male Jone e:11/27/2023 Address:[address] [place] [address] Subjective: * Chief Complaints: * ???Annual visitNo [...] * Family History:?Father: dece ased 44 yrs, business management intern and killed.?Mother: 69 yrs, pancreatic cancer.?Maternal uncle: , pancreatic cancer.?Maternal aunt: , pancreatic cancer.?2 brother(s) , 1 sister(s) - healthy. .? fATHER- BOAT OAR MAKER MOTHER-PANCREATIC CANCER, Denies mental health/substance abuse family [...] mg/dL ?Urine Blood Negative Negative - ?Specific [place] - Urine 1.010 1.005-1.025 - ?Urine Protein [...] 2.38 0.00-4.00 - ng/mL ???Lab:Microalbumin, Random (Order - 11/14/2023) (Collection Date - 11/14/2023) ? [...] ?Estimated Average Glucose 91 - mg/dL ???Lab:Comprehensive [place]. P darian Fast (Order Date - 11/14/2023) [...] Valdez MD Date:?0 11/27/2023 Generated for Barb jonas/Darian/Tiffany on:?12/02/2024 12:36 PM EDT History and Physical Notes * [...]
--- OUTSIDE RECORDS SUMMARY | 2024-12-02 12:36 | XMS_ITS ---
Author Organization Gio Valdez MD Address [address] [place], [place] [phone] Care Team Providers Care Powerhouse Attendant Name Role Phone Gio Valdez Primary Care Provider Allergies No Known Allergies Results Component Value Reference Range Notes Blood Urea Nitrogen (Not ye t reviewed by provider) Interpretation: Performing Lab:[facility], [address] [place] [phone] Notes/Report: Blood Urea Nitrogen 19 9-16 mg/dL Uric Acid (Not yet reviewed by provider) Interpretation: Performing Lab:[address] [phone] Notes/Report: Uric Acid 4.3 3.4-7.0 mg/dL REASON FOR VISIT annual visit, Draw BUN and Uric acid Medications Medication SIG (Take, Route, Fr equency, Duration) Notes Start Date End Date Status Indomethacin 50 MG TAKE 1 CAPSULE BY MO [facility] THREE TIMES DAILY WITH FOOD for 30 Not -Taking Allopurinol 300 MG TAKE 1 TABLET BY GEORGE EVERY DAY for 30 Active predniSONE 20 MG 2 tablets Oral Once a day for 5 days 09/03/2022 Not-Taking CeleBREX 200 MG 1 capsule with food Orally Once a day for 20 days 11/29/2021 Nica-Amelia kimbrough Social History Tobacco Use: Social History [...] Location Date Provider Diagnosis Gio Valdez MD [address] [place] [address] [place] [phone] 12/02/2024 Gio Valdez Gout M10.9 ; Adult [...] monitor Pending Test Test Name Order Date Blood Urea Nitrogen 12/02/2024 Uric Acid 12/02/2024 Future Test Test Name Order Date IRON PROFILE 06/03/2025 Ferritin 06/03/2025 Next Appt Details Follow Up: 1 Year, Reason: Provider Name:Gio villarealr, 06/03/2025 07:30:00 AM, [address], [address], [place], [phone], Provider Name:Gio mcneill, 11/29/2025 07:15:00 AM, [address], [address], [place], [phone], Provider Name:Gio Tran ier, 12/05/2025 08:30:00 AM, [address], [address], [place], [phone], Progress Notes * Reuben ROMEDOB: [birth year] (59 yo M)Acc No.[id number]:12/02/2024 Progress Notes Patient:?Reuben ROME Provider:?Gio Valdez MD :1965???Age:59 Y???Sex:Male Jone e:12/02/2024 Address:[address] [place] [address] [facility] Subjective: * Chief Complaints: * ???1. Annual visit. 2. Draw BUN and Uric acid. * HPI: ???Depression Screening:?PHQ-9?Little interest or pleasure [...] of PHQ-9 found negative result, no follow-up needed.?Communication Needs:?Communication Needs?Does the patient have a hearing impairment?No,?Does the patient have a vision impairment??Yes,?If yes, what is the vision impairment??Glasses,?Does the patient have a cognition impairment??No.?Fall Risk:?History?Have you had any falls with injury in the past year??No,?Have you had two or more falls in the past year??No.?SDOH Questions:?SDOH Questions?In the past year have you been worried about losing housing??No,?In the past year have you or any family members you live with been unable to get any of the following when it was really needed? Check all that apply:?None.?Symptom(s):?patient is a 59 yo male here for review of recent labs and follow up of chronic issues. * ROS:?General/Constitutional:?Change in appetite?denies.?Chills?denies.?Fever?denies.?Ophthalmologic:?Blurred vision?denies.?Discharge?denies.?Pain?denies.?ENT:?Decreased hearing?denies.?Sore throat?denies.?Swollen glands?denies.?Endocrine:?Cold intolerance?denies.?Excessive thirst?denies.?Heat intolerance?denies.?Weight loss?denies.?Respiratory:?Cough?denies.?Shortness of breath at rest?denies.?Shortness of breath with exertion?denies.?Wheezing?denies.?Cardiovascular:?Chest pain at rest?denies.?Chest pain with exertion?denies.?Irregular heartbeat?denies.?Shortness of breath?denies.?Gastrointestinal:?Abdominal pain?denies.?Change in bowel habits?denies.?Diarrhea?denies.?Nausea?denies.?Rectal bleeding?denies.?Vomiting?denies .?Genitourinary:?Blood in urine?denies.?Difficulty urinating?denies.?Frequent urination?denies.?Musculoskeletal:?Painful joints?denies.?Weakness?denies.?Skin:?Dry skin?denies.?Itching?denies.?Denies?Mole(s),? changes in moles, new moles or any lesions of concern.?Denies?Photosensitivity.?Rash?denies.?Neurologic:?Dizziness?denies.?Fainting?denies.?Headache?denies.? * Medical History:?Refuses flu shot (07-14-12), Colonoscopy 09/19/2014 w/ Dr. Valadez - repeat 10 yrs.Colonoscopy done 11/19/21 repeat 5 yrs, Mild intermittent asthma without complication. * Family History:?Father: dece ased 44 yrs, director water and waste services and killed.?Mother: 69 yrs, pancreatic cancer.?Maternal uncle: , pancreatic cancer.?Maternal aunt: , pancreatic cancer.?2 brother(s) , 1 sister(s) - healthy. 1 son(s) . .? fATHER- PHYSICAL THERAPY ASSISTANT INSTRUCTOR MOTHER-PANCREATIC CANCER, Denies mental health/substance abuse family [...] one occasion in the past year??Never (0 point),?Points?4,?Interpretation?Positive.?Miscellaneous:?Caffeine: no. Children: no. Community involvements: yes. Exercise: yes, WALKING X 30 MINUTES 2 TIMES A WEEK. Home smoke detector use: yes. Marital status: . 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 Pets: cats: dogs: 3 dogs. Travel outside of the [place]: no. * Medications:?Taking Allopuri nol 300 MG Tablet TAKE 1 TABLET BY MOUTH EVERY DAY , Not-Taking/PRN Indomethacin 50 MG Capsule TAKE 1 CAPSULE BY MOUTH THREE TIMES DAILY WITH FOOD , Not-Taking/PRN predniSONE 20 MG Tablet 2 tablets Oral Once a day , Not-Taking/PRN CeleBREX 200 MG Capsule 1 capsule with food Orally Once a day , Discontinued predniSONE 20 MG Tablet 2 tablets Orally Once a day , Medication List reviewed and reconciled with the patient * Allergies:?N.K.D.A. Objective: * Vitals:?Ht: 70, Wt: 217, BMI :31.13, BP:122/76, Wt-k.43. weight is up 5 pounds since 11-27-23. * ???Past Orders: ???Lab:Microalbumin, Random (Order Date - 11/25/2024) (Collection Date & Time - 11/25/2024 07:15 AM) ? Value Reference Range ?Creatinine Urine 88.32 - m g/dL ?Microalbumin Urine < 5.0 - mg/L ?Microalbum Creatinine Ratio Ur TNP <30 - ug/mg cr ???Lab:Complete Blood Count Auto Diff (Order Date - 11/25/2024) (Collection Date & Time - 11/25/2024 07:15 AM) ? Value Reference Range ?White Blood Count 8.2 4. 8-10.8 - X10*3/uL ?Red Blood Count 4.61 4.60 -5.80 - X10*6/uL ?Hemoglobin 15.1 14.0-18.0 - g/dl ?Hematocrit 44.6 42.0-52.0 - % ?Mean Corpuscular Volume 96.7 80.0-98.0 - fL ?Mean Corpuscular Hemoglobin 32.8 27.0-33.0 - pg ?Mean Corpuscular HGB Conc 33.9 31.0-36.0 - g/dl ?Red Cell Distribution Width 12.6 11.0-16.0 - % ?Platelet Count 243 160-4 00 - X10*3/uL ?Mean Platelet Volume 9.8 9.4-12.4 - fL ?Neutrophils Percent Auto 48.8 45-73 - % ?Imm Gran Pct Auto 0.5 H 0. 0-0.4 - % ?Lymphocytes Percent Auto 42.1 H 20-40 - % ?Monocytes Percent Auto 7.5 2-11 - % ?Eosinophils Percent Auto 0.9 0-4 - % ?Basophils Percent Auto 0.2 0-2 - % ?NRBC Pct Auto 0.0 0.0-0. 2 - /100WBC ?Neutrophils Absolute Auto 4.0 2.0-8.3 - x10*3/uL ?Imm Gran Abs Auto 0.04 H 0. 00-0.03 - X10*3/uL ?Lymphocytes Absolute Auto 3.4 1.2-4.9 - X10*3/uL ?Monocytes Absolute Auto 0.6 0.1-1.2 - X10*3/uL ?Eosinophils Absolute Auto 0.1 0.0-0.4 - X10*3/uL ?Basophils Absolute Auto 0.0 0.0-0.2 - X10*3/uL ?NRBC Abs Auto 0.000 0.0-0. 012 - X10*3/uL ???Lab:Hemoglobin A1c (Order Date - 11/25/2024) (Collection Date & Time - 11/25/2024 07:15 AM) ? Value Reference Range ?Hemoglobin A1c % 4.9 <6. 0 - % ?Estimated Average Glucose 94 - mg/dL ???Lab:Comprehensive [place]. P darian Fast (Order Date - 11/25/2024) (Collection Date & Time - 11/25/2024 07:15 AM) ? Value Reference Range ?Sodium 139 135-145 - mmo l/L ?Bilirubin Total 1.3 H 0.0- 1.0 - mg/dL ?Aspartate Amino Transferase 26 5-37 - U/L ?Alanine Aminotransferase 26 0-40 - U/L ?Total Protein 6.7 6.5-8. 0 - g/dL ?Albumin Level 4.0 3.5-5. 0 - g/dL ?Alkaline Phosphatase 56 39-117 - U/L ?Potassium 4.2 3.3-5.1 - mmol/L ?Chloride 105 96-108 - mm ol/L ?Carbon Dioxide 25 22-29 - mmol/L ?Anion Gap 13 12-20 - ?Blood Urea Nitrogen 28 H 9-16 - mg/dL ?Creatinine 0.94 0.5-1.4 - mg/dL ?Estimated Glomerular Filt Rate > 60 - ?Glucose Fasting 112 H 60-9 9 - mg/dL ?Calcium 9.2 8.4-10.2 - m g/dL ???Lab:UA ClnCatch+Micro w/r flx Cult (Order Date - 11/25/2024) (Collection Date & Time - 11/25/2024 07:15 AM) ? Value Reference Range ?Color Urine Yellow - ?Appearance Urine Clear - ?PH 5.5 5.0-9.0 - ?Glucose Urine UA Negative Neg ative - mg/dL ?Urine Blood Negative Negative - ?Specific [place] - Urine 1.020 1.005-1.025 - ?Urine Protein Negative Neg-Tr jenny - mg/dL ?Urine Ketones Negative Negati ve - mg/dL ?Nitrite Urine Negative Negati ve - ?Leukocyte Esterase Urine Negative Negative - ?RBC Urine 0-2 0-2 - /HPF ?WBC Urine 0-5 0-5 - /HPF ?Squamous Epithelial Cell Urine 0-2 0-2 - /HPF ?Bacteria Urine None Seen None Seen - ?Hyaline Casts Urine 0-2 0-2 - /LPF ???Lab:Ferritin (Order - 11/25/2024) (Collection Date & Time - 11/25/2024 07:15 AM) ? Value Reference Range ?Ferritin 57 20-250 - ng /mL ???Lab:Lipid Panel (Order Da 11/25/2024) (Collection Date & Time - 11/25/2024 07:15 AM) ? Value Reference Range ?Triglycerides 120 <150 - mg/dL ?Cholesterol 191 <200 - m g/dL ?LDL Cholesterol Calculated 96 <100 - mg/dL ?HDL Cholesterol 71 >40 - mg/dL ???Lab:PSA,Total (Free>4and< 10) (Order Date - 11/25/2024) (Collection Date & Time - 11/25/2024 07:15 AM) ? Value Reference Range ?PSA,Total (Free>4and<10) 2.50 0.00-4.00 - ng/mL * Examination: ???General Examination: ?GENERAL APPEARANCE:?well developed, [...] masses palpable, prostate normal, stool guaiac negative.?MALE GENITOURINARY:?uncircumcised, no testicular mass, testes descended bilaterally.?EXTREMITIES:?no clubbing, cyanosis, or edema, abnormal tender at insertion of plantar fascia.?NEUROLOGIC:?nonfocal, motor strength normal upper and lower extremities, sensory exam intact.? Assessment: * Assessment: 1.?Adult general medical exa mination - Z00.00 (Primary)???2.?Gout - M10.9???3.?Elevated BUN - R79.9???4.?Plantar fasciitis of left foot - M72.2???5.?Hereditary hemochromatosis - E83.110??? Plan: * Treatment: 2.?Gout?LAB: Blood Urea Nitrogen (Collection Date & Time - 12/02/2024 08:30 AM) ?LAB: Uric Acid (Collection Date & Time - 12/02/2024 08:30 AM) ?LAB: IRON PROFILE (Ordered for 06/03/2025) ?LAB: Ferritin (Ordered for 06/03/2025) Notes: doing well, will continue to monitor?? 3.?Elevated BUN?LAB: Blood Urea Nitrogen (Collection Date & Time - 12/02/2024 08:30 AM) ?LAB: Uric Acid (Collection Date & Time - 12/02/2024 08:30 AM) Notes: pending abs, will continue to monitor?? 4.?Plantar fasciitis of left foot? Notes: gave exercises?? 5.?Hereditary hemochromatosi s? Notes: will continue to monitor?? * Procedure Codes:?95330 VENIP UNCT, ROUTINE* * Preventive Medicine:? ??Counseling:?Care goal follow-up plan:?Counseling for abnormal BMI provided?Yes,?Above Normal BMI Follow-up?Giving encouragement to exercise.? * Follow Up:?1 Year * * The named appointment provid er may or may not be the originator of this progress note, and it is not deemed complete until electronically signed by the appointment provider. Sign off status: Pending * Provider:?Gio Valdez MD Date:?0 12/02/2024 Generated for Barb jonas/Darian/eTransmitting on:?12/02/2024 12:36 PM EDT History and Physical [...]
--- OUTSIDE RECORDS SUMMARY | 2024-12-02 12:36 | XMS_ITS | Patient Health Record ---
Author Organization Gio Valdez MD Address [address] [place], [place] [phone] Care Team Providers Care Manager Dialysis Name Role Phone Gio Valdez Primary Care Provider [phone] Allergies No Known Allergies Results Component Value Reference Range Notes Complete Blood Count Auto Di ff Reviewed date:11/25/2024 06:13:42 PM Interpretation: Performing Lab:[facility], [address] [place] [phone] Notes/Report: White Blood Count 8.2 4.8-10.8 X10*3/uL [...] NRBC Abs Auto 0.000 0.0-0.012 X10*3/uL Comprehensive [place]. Panel Fa Reviewed date:11/26/2024 09:34:00 AM Interpretation: Performing Lab:[address] [phone] Notes/Report: Sodium 139 135-145 mmol/L Potassium 4.2 [...] Ferritin Reviewed date:11/25/2024 06:06:01 PM Interpretation: Performing Lab:[address] [phone] Notes/Report: Ferritin 57 20-250 ng/mL Lipid Panel Reviewed date:11/25/2024 06:07:22 PM Interpretation: Performing Lab:[facility], [address] [place] [phone] Notes/Report: Triglycerides 120 <150 mg/dL Desirable Triglyceride: [...] (Free>4and<10) Reviewed date:11/25/2024 06:07:14 PM Interpretation: Performing Lab:[address] [phone] Notes/Report: PSA,Total (Free>4and<10) 2.50 0.00-4.00 ng/mL A [...] Random Reviewed date:11/25/2024 06:07:04 PM Interpretation: Performing Lab:[address] [phone] Notes/Report: Creatinine Urine 88.32 Microalbumin Urine < 5.0 Microalbum/Creatinine Ratio Ur TNP <30 ug/mg cr Unable to calculate albumin/creatinine ratio due to low microalbumin or creatinine result. Hemoglobin A1c Reviewed date:11/25/2024 06:06:21 PM Interpretation: Performing Lab:[facility], [address] [place] [phone] Notes/Report: Hemoglobin A1c % 4.9 <6.0 % [...] average glucose, using the formula of the B6K-Rlajgxi Average Glucose study (ADAG), Diabetes Care, Vol.31,#8, Mar. 2007 UA ClnCatch+Micro w/rflx Cul t Reviewed date:11/25/2024 06:10:51 PM Interpretation: Performing Lab:[facility], [address] [place] [phone] Notes/Report: Urine, Clean Catch Color Urine Yellow Appearance Urine Clear PH 5.5 5.0-9.0 Glucose Urine UA Negative Negative mg/dL Urine Blood Negative Negative Specific [place] - Urine 1.020 1.005-1.025 Urine Protein Negative Neg-Trace mg/dL Urine Ketones Negative Negative mg/dL Nitrite Urine Negative Negative Leukocyte Esterase Urine Negative Negative RBC Urine 0-2 0-2 /HPF WBC Urine 0-5 0-5 /HPF Squamous Epithelial Cell Urine 0-2 0-2 /HPF Bacteria Urine None Seen None Seen Hyaline Casts Urine 0-2 0-2 /LPF Blood Urea Nitrogen (Not yet reviewed by provider) Interpretation: Performing Lab:[facility], [address] [place] [phone] Notes/Report: Blood Urea Nitrogen 19 9-16 mg/dL Uric Acid (Not yet reviewed by provider) Interpretation: Performing Lab:[facility], [address] [place] [phone] Notes/Report: Uric Acid 4.3 3.4-7.0 mg/dL Therapeutic Phlebotomy Reviewed date:12/03/2023 03:35:57 PM Interpretation: Performing Lab:[facility], [address] [place] [phone] Notes/Report: THER/HGB 15.5 14.0-18.0 g/dL THER/HCT TNP 42.0-52.0 % Therapeutic Phlebotomy Phlebotomy Performed 500 mls drawn on 12/03/23. Please note that a copy of this report has been sent to the Primary Care Physician, the ordering physician and any physician designated by patient request. Reason For Referral No Information Medications Medication SIG (Take, Route, Fr equency, Duration) Notes Start Date End Date Status Indomethacin 50 MG TAKE 1 CAPSULE BY MO UT THREE TIMES DAILY WITH FOOD for 30 Not -Taking Allopurinol 300 MG TAKE 1 TABLET BY GEORGE TH EVERY DAY for 30 Active predniSONE 20 MG 2 tablets Oral Once a day for 5 days 09/03/2022 Not-Taking CeleBREX 200 MG 1 capsule with food Orally Once a day for 20 days 11/29/2021 Not-Takin g Immunizations Vaccine Route Administration Date Status Comme nts Flu Vaccine IM Intramuscular 08/17/2013 Administered Flu Vaccine IM Intramuscular 05/31/2015 Administered [facility] Flu Vaccine IM Intramuscular 06/05/2016 Administered [facility] Fluarix Quadrivalent Unknown 06/03/2017 Administered At work Fluarix Quadrivalent IM Intramuscular 06/02/2018 Administe red pt was given the vaccine at [facility] Fluarix Quadrivalent IM Intramuscular 05/13/2019 Administe red pt was given vaccine at [facility] in [place]. Fluarix Quadrivalent Unknown 06/19/2020 Administered At work SARS-COV-2 Pfizer Unknown 11/22/2020 Administered SARS-COV-2 Pfizer Unknown 12/13/2020 Administered SARS-COV-2 Pfizer Unknown 07/02/2021 Administered Fluarix Quadrivalent Unknown 05/08/2021 Administered Shingrix Unknown 06/20/2022 Administered [facility] Fluarix Quadrivalent IM Intramuscular 04/25/2023 Administe red Flu Vaccine Unknown 09/13/2014 Refused PPSV23 (Pnemovax) Unknown 12/22/2017 Refused PPSV23 (Pnemovax) Unknown 07/10/2020 Refused Social History Tobacco Use: Social History Observation [...] Problem Status W/U Status Risk Notes Problem 23012792 Lymphocytosis (D72.820) Active confirmed Problem Gout (41618155) Gout (M10.9) Active confirmed Problem 24084753 Anemia, unspecified (D64.9) Active confirmed Problem 48922622 Hereditary hemochromatosis (E83.110) Active confirmed Problem 387302943 Other hemochromatosis (E83.118) Active confirmed Problem 47093900 Rectal polyp (K62.1) Active confirmed Problem 1830111 Prediabetes (R73.09) Active confirmed Problem 77198389 [place] syndrom e (E80.4) Active confirmed Problem 409584175 History of gout (Z87.39) Active confirmed Problem 92165857 Heterozygous alp douglas 1-antitrypsin deficiency (E88.01) Active confirmed Problem Idiopathic gout (25021978) Acute idiopathic gout involving toe of right foot (M10.071) Active confirmed Problem 468503736 Rising PSA level (R97.20) Active confirmed Problem Hemochromatosis (982632275) Hemochromatosis, unspecified hemochromatosis type (E83.119) Active confirmed Problem 45732053 Acute idiopathic gout, unspecified site (M10.00) Active confirmed Problem 08135400 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 Problem Gout (31612510) Acute gout of right foot, unspecified cause (M10.9) Active confirmed Problem 078486844 Acute gout of le ft ankle, unspecified cause (M10.9) Active confirmed Problem 894821205 Basal cell carcinoma of chest (C44.519) Active confirmed Problem 643333012599668 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 Vital Signs Blood pressure diastolic 76 mm Hg 12/02/2024 shiela ght is up 5 pounds since 11-27-23 Height 70 in 12/02/2024 weight is up 5 pounds since 11-27-23 Blood pressure systolic 122 mm Hg 12/02/2024 weig ht is up 5 pounds since 11-27-23 Weight 217 lbs 12/02/2024 weight is up 5 pounds since 11-27-23 BMI 31.13 kg/m2 12/02/2024 weight is up 5 pounds since 11-27-23 Encounters Encounter Location Date Provider Diagnosis Gio Valdez MD [address] [place] [phone] 11/25/2024 Gio Valdez Blood tests for rout ine general physical examination Z00.00 ; Anemia, unspecified D64.9 ; Prediabetes R73.09 ; Rising PSA level R97.20 and Other hemochromatosis E83.118 Gio Valdez MD [address] [place] [phone] 12/02/2024 Gio Valdez Gout M10.9 ; Adult general medical examination Z00.00 ; Elevated BUN R79.9 ; Plantar fasciitis of left foot M72.2 and Hereditary hemochromatosis E83.110 Assessments Encounter Date Diagnosis (ICD Code) Assessment Notes Treatment Notes Treatment Clinical Notes Section Notes 11/25/2024 Blood tests for routine general physical examination (ICD-10 - Z00.00) 12/02/2024 Gout (ICD-10 - M10.9) doing well, will continue to monitor 12/02/2024 Adult general medical examination (ICD-10 - Z00.00) labs reviewed and discussed with patient 11/25/2024 Anemia, unspecified (ICD-10 - D64.9) 12/02/2024 Elevated BUN (ICD-10 - R79.9) pending abs, will continue to monitor 11/25/2024 Prediabetes (ICD-10 - R73.09) 12/02/2024 Plantar fasciitis of left foot (ICD-10 - M72.2) gave exercises 11/25/2024 Rising PSA level (ICD-10 - R97.20) 12/02/2024 Hereditary hemochromatosis (ICD-10 - E83.110) will continue to monitor 11/25/2024 Other hemochromatosis (ICD-10 - E83.118) Plan Of Treatment Pending Test Test Name Order Date Electrocardiogram (EKG) 07/11/2011 Electrocardiogram (EKG) 01/08/2019 Blood Urea Nitrogen 12/02/2024 Uric Acid 12/02/2024 Next Appt Details Provider Name:Gio Tran ier, 06/03/2025 07:30:00 AM, [address] [place] [address], [place] [address], [place], [place], [phone], Provider Name:Gio Tran ier, 11/29/2025 07:15:00 AM, [address] [place] [address], [place] [address], [place], [place], [phone], Provider Name:Gio Tran ier, 12/05/2025 08:30:00 AM, [address] [place] [address], [place] [address], [place], [place], [phone], Insurance Providers Payer Name Payer Address Payer Phone Subscriber Number Group Number Insured Name Patient Relationship to Insured Coverage Start Date Coverage End Date [facility] [address] [place] [id number] [phone] [id number] Reuben Rome Self - patient is the insured Medical (General) History Medical History History ICD Code Refuses flu shot (12-4-12) Colonoscopy 09/19/2014 w/ Dr. Valadez - repeat 10 yrs.Colonoscopy done 11/19/21 repeat 5 yrs Mild intermittent asthma without complic ation J45.20
== END 2024-12-02 10:45 | disposition home or self-care (01) ==
LOC: HO.LNP 10:44
PROVIDERS: Visit Provider Internal Medicine
DX: M10.9 Gout, unspecified (principal); R79.9 Abnormal finding of blood chemistry, unspecified
CPT/HCPCS: 84520; 84550

== ENCOUNTER 2024-12-07 08:06 | Outpatient (REF) | payer OTHER, SELFPAY ==
--- OUTSIDE RECORDS SUMMARY | 2024-12-07 08:15 | XMS_ITS | Clinical Summary ---
Author Organization [facility] Address [address] [place] [address] Care Team Providers Care Heel Nail Rasper Name Role Phone Gio Valdez MD Primary Care Provider +1- [phone] Allergies No known active allergies Medications No [...] patient's age to complete this topic Insurance [facility] Care Teams Heel Nail Rasper Relationship Specialty Start Date End Date Gio Valdez MD [address] [place] [address] [place] [address] PCP - General Internal Medicine 02/14/20
[2024-12-07 09:42] LABS: Ferritin 74 ng/mL (20-250)
== END 2024-12-07 08:07 | disposition home or self-care (01) ==
LOC: HO.BBR 08:06
PROVIDERS: PCP Internal Medicine; Visit Provider Internal Medicine
DX: E83.110 Hereditary hemochromatosis (principal)
CPT/HCPCS: 36415; 82728

== ENCOUNTER 2025-03-08 08:02 | Outpatient (REF) | payer OTHER, SELFPAY ==
--- OUTSIDE RECORDS SUMMARY | 2024-11-25 03:15 | XMS_ITS ---
Author Organization Gio Valdez MD Address [address] [place], [place] [phone] Care Team Providers Care Delinquent Notice Machine Operator Name Role Phone Gio Valdez Primary Care Provider Results Component Value Reference Range Notes Complete Blood Count Auto Di ff Reviewed date:11/25/2024 06:13:42 PM Interpretation: Performing Lab:[facility], [address] [place] [phone] Notes/Report: White Blood Count 8.2 4.8-10.8 X10*3/uL [...] NRBC Abs Auto 0.000 0.0-0.012 X10*3/uL Comprehensive [place]. Panel Fa Reviewed date:11/26/2024 09:34:00 AM Interpretation: Performing Lab:[address] [phone] Notes/Report: Sodium 139 135-145 mmol/L Potassium 4.2 [...] Ferritin Reviewed date:11/25/2024 06:06:01 PM Interpretation: Performing Lab:[address] [phone] Notes/Report: Ferritin 57 20-250 ng/mL Lipid Panel Reviewed date:11/25/2024 06:07:22 PM Interpretation: Performing Lab:[facility] [address] [phone] Notes/Report: Triglycerides 120 <150 mg/dL Desirable Triglyceride: [...] (Free>4and<10) Reviewed date:11/25/2024 06:07:14 PM Interpretation: Performing Lab:[address] [phone] Notes/Report: PSA,Total (Free>4and<10) 2.50 0.00-4.00 ng/mL A [...] Random Reviewed date:11/25/2024 06:07:04 PM Interpretation: Performing Lab:[address] [phone] Notes/Report: Creatinine Urine 88.32 Microalbumin Urine < 5.0 Microalbum/Creatinine Ratio Ur TNP <30 ug/mg cr Unable to calculate albumin/creatinine ratio due to low microalbumin or creatinine result. Hemoglobin A1c Reviewed date:11/25/2024 06:06:21 PM Interpretation: Performing Lab:[facility], [address] [place] [phone] Notes/Report: Hemoglobin A1c % 4.9 <6.0 % [...] average glucose, using the formula of the G8L-Wcuqtrq Average Glucose study (ADAG), Diabetes Care, Vol.31,#8, 2007 UA ClnCatch+Micro w/rflx Cul t Reviewed date:11/25/2024 06:10:51 PM Interpretation: Performing Lab:[facility], [address] [place] [phone] Notes/Report: Urine, Clean Catch Color Urine Yellow Appearance Urine Clear PH 5.5 5.0-9.0 Glucose Urine UA Negative Negative mg/dL Urine Blood Negative Negative Specific [place] - Urine 1.020 1.005-1.025 Urine Protein Negative [...] Location Date Provider Diagnosis Gio Valdez MD [address] [place] [address] Drive [address] [place], [place] [phone] 11/25/2024 Gio Valdez Blood tests for rout [...] Next Appt Details Provider Name:Gio Tran ier, 06/03/2025 07:30:00 AM, [address], [address], [place], [place], [phone], Provider Name:Gio Tran ier, 11/29/2025 07:15:00 AM, [address], Suite [facility], [place], [place], [phone], Provider Name:Gio Tran ier, 12/05/2025 08:30:00 AM, [address] [facility], Suite [facility], [place], [place], [phone], Progress Notes * Reuben ROMEDOB: [birth year] (59 yo M)Acc No.[id number]:11/25/2024 Progress Note Patient: Reuben PERALES Provider: Ron Valdez MD :1965 A ge:59 Y S ex:Male Date:11/25/2024 Address:[address] [place], [place] [phone] Subjective: * Chief Complaints: * 1 . [...] - 11/25/2024 07:15 AM) L AB: Comprehensive [place]. Panel Fast (Collection Date & Time - [...] - 11/25/2024 07:15 AM) L AB: Comprehensive [place]. Panel Fast (Collection Date & Time - [...] - 11/25/2024 07:15 AM) L AB: Comprehensive [place]. Panel Fast (Collection Date & Time - [...] MD Date: 0 11/25/2024 Generated for Barb jonas/Darian/Larisaitting on: 0 03/08/2025 08:03 AM EDT
--- OUTSIDE RECORDS SUMMARY | 2025-03-08 08:04 | XMS_ITS | Encounter Summary ---
Author Organization [facility] Address [address] [place] [address] Phone Care Team Providers Care Tour Production Supervisor Name Role Phone Gio Valdez MD Primary Care Provider Encounter Details Date Type Department Care Team (Late st Contact Info) Description 11/06/2017 Transcribe Orders [facility] Laboratory [address] [place] [address] Bernabe Kennedy MD [address] [place] [address] Swelling of right knee joint (Primary Dx) Social History Tobacco Use Types Packs/Day Years Used Date Smoking Tobacco: Never Smokeless Tobacco: Never Alcohol Use Standard Drinks/Week Comments Yes 1 (1 standard drink = 0.6 oz pur e alcohol) occasionally Sex and Gender Information Value Date Recorded Sex Assigned at Not on file Legal Sex Male 9:42 PM EDT Gender Identity Not on file Sexual Orientation Not on file documented as of this encounter Plan of Treatment Not on file documented as of this encounter Results * (ABNORMAL) Antinuclear antibody (JUAN) (11/06/2017 2:15 PM EDT) JUAN SCREEN ON HEP 2 Positive(A ) Negative [facility] Comment:An JUAN Titer has bee n reflexed. The results will follow. Blood 11/06/2017 2:15 PM EDT 11/06/2017 2:19 PM EDT us Bernabe Kennedy MD LAB BLOOD ORDERABLES Fi nal Result [address] [address] documented in this encounter Visit Diagnoses Diagnosis Swelling of right knee joint- Primary Effusion of lower leg joint documented in this encounter Care Teams Tour Production Supervisor Relationship Specialty Start Date End Date Gio Valdez MD [address] [place] [address] [place] [address] PCP - General Internal Medicine 11/03/17 documented as of this encounter Additional Source Comments The information contained in this document represents components of the legal health record. It is not the complete legal health record.[facility]
--- OUTSIDE RECORDS SUMMARY | 2025-03-08 08:04 | XMS_ITS | Clinical Summary ---
Author Organization [facility] Address [address] [place] [address] Care Team Providers Care Cost Accounting Clerk Name Role Phone Gio Valdez MD Primary Care Provider +1- [phone] Allergies No known active allergies Medications No [...] 64 03/16/2020 2:55 PM EDT Temperature 36.3 C (97.4 F) 03/16/2020 2:13 PM EDT Respiratory Rate 16 03/16/2020 2:55 PM EDT [...] Zoster (Shingles) Vaccine (1 of 2) 2014 COVID-19 Vaccine ( - 2023-2 5 season) 2024 Influenza Vaccine 03/11/2025 RSV Vaccine 60 years and old er and Patients (1 - 1-dose 75+ series) 2039 Hepatitis B Vaccines Aged Out No long er eligible based on patient's age to complete this topic Insurance [facility] Care Teams Cost Accounting Clerk Relationship Specialty Start Date End Date Gio Valdez MD [address] [place] [address] [place] [address] PCP - General Internal Medicine 02/14/20
== END 2025-03-08 08:03 | disposition home or self-care (01) ==
LOC: HO.BBR 08:02
PROVIDERS: PCP Internal Medicine; Visit Provider Internal Medicine
DX: Z13.89 Encounter for screening for other disorder (principal)

== ENCOUNTER 2025-06-08 08:02 | Outpatient (REF) | payer OTHER, SELFPAY ==
--- OUTSIDE RECORDS SUMMARY | 2024-11-25 03:15 | XMS_ITS ---
Author Organization Gio Valdez MD Address [address] [place], [place] [id number] Care Team Providers Care Hospice Physician Name Role Phone Gio Valdez Primary Care Provider Results Component Value Reference Range Notes Complete Blood Count Auto Di ff Reviewed date:11/25/2024 06:13:42 PM Interpretation: Performing Lab:[facility], [address] [place] [phone] Notes/Report: White Blood Count 8.2 4.8-10.8 X10*3/uL [...] NRBC Abs Auto 0.000 0.0-0.012 X10*3/uL Comprehensive [place]. Panel Fa Reviewed date:11/26/2024 09:34:00 AM Interpretation: Performing Lab:[address] [phone] Notes/Report: Sodium 139 135-145 mmol/L Potassium 4.2 [...] Ferritin Reviewed date:11/25/2024 06:06:01 PM Interpretation: Performing Lab:[address] [phone] Notes/Report: Ferritin 57 20-250 ng/mL Lipid Panel Reviewed date:11/25/2024 06:07:22 PM Interpretation: Performing Lab:[facility] [address] [phone] Notes/Report: Triglycerides 120 <150 mg/dL Desirable Triglyceride: [...] (Free>4and<10) Reviewed date:11/25/2024 06:07:14 PM Interpretation: Performing Lab:[address] [phone] Notes/Report: PSA,Total (Free>4and<10) 2.50 0.00-4.00 ng/mL A [...] Random Reviewed date:11/25/2024 06:07:04 PM Interpretation: Performing Lab:[address] [phone] Notes/Report: Creatinine Urine 88.32 Microalbumin Urine < 5.0 Microalbum/Creatinine Ratio Ur TNP <30 ug/mg cr Unable to calculate albumin/creatinine ratio due to low microalbumin or creatinine result. Hemoglobin A1c Reviewed date:11/25/2024 06:06:21 PM Interpretation: Performing Lab:[facility], [address] [place] [phone] Notes/Report: Hemoglobin A1c % 4.9 <6.0 % [...] average glucose, using the formula of the F4Y-Dnzkdfl Average Glucose study (ADAG), Diabetes Care, Vol.31,#8, 2007 UA ClnCatch+Micro w/rflx Cul t Reviewed date:11/25/2024 06:10:51 PM Interpretation: Performing Lab:[facility], [address] [place] [phone] Notes/Report: Urine, Clean Catch Color Urine Yellow Appearance Urine Clear PH 5.5 5.0-9.0 Glucose Urine UA Negative Negative mg/dL Urine Blood Negative Negative Specific [place] - Urine 1.020 1.005-1.025 Urine Protein Negative [...] Location Date Provider Diagnosis Gio Valdez MD [address] [place] [address] Drive [address] [place], [place] [phone] 11/25/2024 Gio Valdez Blood tests for rout [...] 07:15:00 AM, [address], [address], [place], [place], [phone], Provider Name:Gio Tran ier, 12/05/2025 08:30:00 AM, [address], [address], [place], [place], [phone], Progress Notes * Reuben ROMEDOB: [birth year] (60 yo M)Acc No.[id number]:11/25/2024 Progress Note Patient: Reuben PERALES Provider: Ron Valdez MD :1965 A ge:59 Y S ex:Male Date:11/25/2024 Address:[address] [place], [place] [phone] Subjective: * Chief Complaints: * 1 . [...] - 11/25/2024 07:15 AM) L AB: Comprehensive [place]. Panel Fast (Collection Date & Time - [...] - 11/25/2024 07:15 AM) L AB: Comprehensive [place]. Panel Fast (Collection Date & Time - [...] - 11/25/2024 07:15 AM) L AB: Comprehensive [place]. Panel Fast (Collection Date & Time - [...] MD Date: 0 11/25/2024 Generated for Barb jonas/Darian/Tiffany on: 08:04 AM EDT
--- OUTSIDE RECORDS SUMMARY | 2024-12-02 04:00 | XMS_ITS ---
Author Organization Gio Valdez MD Address [address] [place], [place] [phone] Care Team Providers Care Risk Prevention Engineer Name Role Phone Gio Valdez Primary Care Provider [phone] Allergies No Known Allergies Results Component Value Reference Range Notes Blood Urea Nitrogen Reviewed date:12/02/2024 12:44:50 PM Interpretation: Performing Lab:[facility], [address] [place] [phone] Notes/Report: Blood Urea Nitrogen 19 9-16 mg/dL Uric Acid Reviewed date:12/02/2024 12:44:38 PM Interpretation: Performing Lab:[address] [phone] Notes/Report: Uric Acid 4.3 3.4-7.0 mg/dL REASON FOR VISIT annual visit, Draw BUN and Uric acid Medications Medication SIG (Take, Route, Fr equency, Duration) Notes Start Date End Date Status Indomethacin 50 MG TAKE 1 CAPSULE BY MO [facility] THREE TIMES DAILY WITH FOOD for 30 Not -Taking Allopurinol 300 MG TAKE 1 TABLET BY [facility]OR[place] EVERY DAY for 30 Active predniSONE 20 MG 2 tablets Oral Once a day for 5 days 09/03/2022 Not-Taking CeleBREX 200 MG 1 capsule with food Orally Once a day for 20 days 11/29/2021 Not-Takyue kimbrough Social History Tobacco Use: Social History [...] Location Date Provider Diagnosis Gio Valdez MD [address] [place] [address] [address] [place], [place] [phone] 12/02/2024 Gio Valdez Gout M10.9 ; Adult [...] 07:15:00 AM, [address], [address], [place], [place], [phone], Provider Name:Gio Tran dionnar, 12/05/2025 08:30:00 AM, [address], [address], [place], [id number], Progress Notes * Reuben ROMEDOB: [birth year] (59 yo M)Acc No.[id number]:12/02/2024 Progress Notes Patient: Reuben PERALES Provider: Ron Valdez MD :1965 A ge:59 Y S ex:Male Date:12/02/2024 Address:[address] [place], [place] [phone] Subjective: * Chief Complaints: * A nnual [...] * Family History: 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 M other: 69 yrs, pancreatic cancer. M aternal uncle: , pancreatic cancer. M aternal aunt: , pancreatic cancer. 2 brother(s) , 1 sister(s) - healthy. 1 son(s) . . fATHER- SCOW HAND MOTHER-PANCREATIC CANCER, Denies mental health/substance abuse family [...] Average Glucose 94 - mg/dL L ab:Comprehensive [place]. Panel Fast (Order Date - 11/25/2024) (Collection [...] mg/dL Urine Blood Negative Negative - Specific [place] - Urine 1.020 1.005-1.025 - Urine Protein [...] ucosa moist. THROAT: c lear. NECK/THYROID: n ra supple, full range of motion, no cervical [...] 12/02/2024 Generated for Barb jonas/Darian/eTjosesmitting on: 1 08:05 AM EDT History and Physical Notes * HPI [...]
--- OUTSIDE RECORDS SUMMARY | 2025-06-03 03:30 | XMS_ITS ---
Author Organization Gio Valdez MD Address 10 [facility] [address] [place] [phone] Care Team Providers Care Clerk Telegraph Service Name Role Phone Gio Valdez Primary Care Provider [phone] REASON FOR VISIT IRON, FERRITIN Encounters Encounter Location Date Provider Diagnosis Gio Valdez MD [address] [place] [address] [address] [place] [phone] 06/03/2025 Gio Valdez Gout M10.9 Assessments Encounter Date Diagnosis (ICD Code) Assessment Notes Treatment Notes Treatment Clinical Notes Section Notes 06/03/2025 Gout (ICD-10 - M10.9) Plan Of Treatment Pending Test Test Name Order Date IRON PROFILE 06/03/2025 Ferritin 06/03/2025 Next Appt Details Provider Name:Gio mcneill, 11/29/2025 07:15:00 AM, [address] [place] [address], [id number], Provider Name:Gio mcneill, 12/05/2025 08:30:00 AM, [address] [place] [address], [phone], Progress Notes * LALITOReuben SALGADODOB: [birth year] (60 yo M)Acc No.[id number]:06/03/2025 Progress Note Patient: Reuben PERALES Provider: Ron Valdez MD :1965 A ge:60 Y S ex:Male Date:06/03/2025 Address:[address] [place] [address] Delfino Rivas [id number] Subjective: * Chief Complaints: * 1 . [...] Ron Valdez MD Date: Generated for Barb jonas/Darian/Jgransmitting on: 08:05 AM EDT
--- OUTSIDE RECORDS SUMMARY | 2025-06-08 08:05 | XMS_ITS | Patient Health Record ---
Author Organization Gio Valdez MD Address [address] [place], [place] [phone] Care Team Providers Care School Cleaner Name Role Phone Gio Valdez Primary Care Provider Allergies No Known Allergies Results Component Value Reference Range Notes Complete Blood Count Auto Di ff Reviewed date:11/25/2024 06:13:42 PM Interpretation: Performing Lab:[facility], [address] [place] [phone] Notes/Report: White Blood Count 8.2 4.8-10.8 X10*3/uL [...] NRBC Abs Auto 0.000 0.0-0.012 X10*3/uL Comprehensive Startex. Panel Fa Reviewed date:11/26/2024 09:34:00 AM Interpretation: Performing Lab:[address] [phone] Notes/Report: Sodium 139 135-145 mmol/L Potassium 4.2 [...] Ferritin Reviewed date:11/25/2024 06:06:01 PM Interpretation: Performing Lab:[address] [phone] Notes/Report: Ferritin 57 20-250 ng/mL Lipid Panel Reviewed date:11/25/2024 06:07:22 PM Interpretation: Performing Lab:[facility], [address] [place] [phone] Notes/Report: Triglycerides 120 <150 mg/dL Desirable Triglyceride: [...] (Free>4and<10) Reviewed date:11/25/2024 06:07:14 PM Interpretation: Performing Lab:[address] [phone] Notes/Report: PSA,Total (Free>4and<10) 2.50 0.00-4.00 ng/mL A [...] Random Reviewed date:11/25/2024 06:07:04 PM Interpretation: Performing Lab:[address] [phone] Notes/Report: Creatinine Urine 88.32 Microalbumin Urine < 5.0 Microalbum/Creatinine Ratio Ur TNP <30 ug/mg cr Unable to calculate albumin/creatinine ratio due to low microalbumin or creatinine result. Hemoglobin A1c Reviewed date:11/25/2024 06:06:21 PM Interpretation: Performing Lab:[facility], [address] [place] [phone] Notes/Report: Hemoglobin A1c % 4.9 <6.0 % [...] average glucose, using the formula of the S2A-Upkjxpi Average Glucose study (ADAG), Diabetes Care, Vol.31,#8, Mar. 2007 UA ClnCatch+Micro w/rflx Cul t Reviewed date:11/25/2024 06:10:51 PM Interpretation: Performing Lab:[facility], [address] [place] [phone] Notes/Report: Urine, Clean Catch Color Urine Yellow Appearance Urine Clear PH 5.5 5.0-9.0 Glucose Urine UA Negative Negative mg/dL Urine Blood Negative Negative Specific [place] - Urine 1.020 1.005-1.025 Urine Protein Negative Neg-Trace mg/dL Urine Ketones Negative Negative mg/dL Nitrite Urine Negative Negative Leukocyte Esterase Urine Negative Negative RBC Urine 0-2 0-2 /HPF WBC Urine 0-5 0-5 /HPF Squamous Epithelial Cell Urine 0-2 0-2 /HPF Bacteria Urine None Seen None Seen Hyaline Casts Urine 0-2 0-2 /LPF Blood Urea Nitrogen Reviewed date:12/02/2024 12:44:50 PM Interpretation: Performing Lab:[facility], [address] [place] [phone] Notes/Report: Blood Urea Nitrogen 19 9-16 mg/dL Uric Acid Reviewed date:12/02/2024 12:44:38 PM Interpretation: Performing Lab:[address] [phone] Notes/Report: Uric Acid 4.3 3.4-7.0 mg/dL Reason For Referral No Information Medications Medication SIG (Take, Route, Fr equency, Duration) Notes Start Date End Date Status Indomethacin 50 MG TAKE 1 CAPSULE BY [facility] THREE TIMES DAILY WITH FOOD for [...] Administered Flu Vaccine IM Intramuscular 05/31/2015 Administered [facility] Flu Vaccine IM Intramuscular 06/05/2016 Administered Rit Aid Fluarix Quadrivalent Unknown 06/03/2017 Administered At work Fluarix Quadrivalent IM Intramuscular 06/02/2018 Administe red pt was given the vaccine at [facility] in [facility] Fluarix Quadrivalent IM Intramuscular 05/13/2019 Administe red pt was given vaccine at [facility] in [place]. Fluarix Quadrivalent Unknown 06/19/2020 Administered At work [...] Problem Status W/U Status Risk Notes Problem 63678074 Lymphocytosis (D72.820) Active confirmed Problem Gout (02338880) Gout (M10.9) Active confirmed Problem 64618306 Anemia, unspecified (D64.9) Active confirmed Problem 42449580 Hereditary hemochromatosis (E83.110) Active confirmed Problem 223526171 Other hemochromatosis (E83.118) Active confirmed Problem 76638344 Rectal polyp (K62.1) Active confirmed Problem 9475762 Prediabetes (R73.09) Active confirmed Problem 51064872 [place] syndrom e (E80.4) Active confirmed Problem 671374462 History of gout (Z87.39) Active confirmed Problem 80440685 Heterozygous alp douglas 1-antitrypsin deficiency (E88.01) Active confirmed Problem Idiopathic gout (73685600) Acute idiopathic gout involving toe of right foot (M10.071) Active confirmed Problem 826924276 Rising PSA level (R97.20) Active confirmed Problem Hemochromatosis (419729722) Hemochromatosis, unspecified hemochromatosis type (E83.119) Active confirmed Problem 50297754 Acute idiopathic gout, unspecified site (M10.00) Active confirmed Problem 34344586 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 Problem Gout (15603350) Acute gout of right foot, unspecified cause (M10.9) Active confirmed Problem 338529925 Acute gout of le ft ankle, unspecified cause (M10.9) Active confirmed Problem 302228140 Basal cell carcinoma of chest (C44.519) Active confirmed Problem 501693295288704 Other secondary acute gout of right knee [...] 12/02/2024 weight is up 5 pounds since 4-18-24 Encounters Encounter Location Date Provider Diagnosis Gio Valdez MD [address] [place], [place] [phone] 11/25/2024 Gio Valdez Blood tests for rout ine general physical examination Z00.00 ; Anemia, unspecified D64.9 ; Prediabetes R73.09 ; Rising PSA level R97.20 and Other hemochromatosis E83.118 Gio Valdez MD [address] [place] [address] Drive [address] [place], [place] [phone] 12/02/2024 Gio Valdez Gout M10.9 ; Adult [...] Date Electrocardiogram (EKG) 07/11/2011 Electrocardiogram (EKG) 01/08/2019 Next Appt Details Provider Name:Gio mcneill, 11/29/2025 07:15:00 AM, [address] [place] [address], [address], [place], [place], [phone], Provider Name:Gio mcneill, 12/05/2025 08:30:00 AM, [address], [address], [place], [place], [phone], Insurance Providers Payer Name Payer Address Payer Phone Subscriber Number Group Number Insured Name Patient Relationship to Insured Coverage Start Date Coverage End Date [facility] [id number] [place] [id number] Reuben Rome Self - patient is the insured Medical (General) History Medical History History ICD Code Refuses flu shot (12-4-12) Colonoscopy 09/19/2014 w/ Dr. Valadez - repeat 10 yrs.Colonoscopy done 11/19/21 repeat 5 yrs Mild intermittent asthma without complic ation J45.20
--- OUTSIDE RECORDS SUMMARY | 2025-06-08 08:05 | XMS_ITS | Clinical Summary ---
Author Organization [facility] Address [address] [place] [address] Care Team Providers Care Trading Manager Name Role Phone Gio Valdez MD Primary Care Provider +1- [phone] Allergies No known active allergies Medications No [...] Vaccine (1 of 2) 2014 Influenza Vaccine 03/11/2025 COVID-19 Vaccine (2023-2 5 season) 2025 RSV Vaccine 50 years and old er and Patients (1 - 1-dose 75+ series) 2039 Hepatitis B Vaccines Aged Out No long er eligible based on patient's age to complete this topic Insurance [facility] Care Teams Trading Manager Relationship Specialty Start Date End Date Gio Valdez MD [address] [place] [address] [place] [address] PCP - General Internal Medicine 02/14/20
--- OUTSIDE RECORDS SUMMARY | 2025-06-08 08:06 | XMS_ITS | Clinical Summary ---
Author Organization [facility] Address [address] [place] [address] Phone Care Team Providers Care Frame Bender Name Role Phone Gio Valdez MD Primary Care Provider Allergies No known active allergies Medications INDOMETHACIN, BULK, MISC 50 mg by Miscellaneous route as needed. Active Family History Relation Status Comments Father Mother Social History Tobacco Use Types Packs/Day Years Used Date Smoking Tobacco: Never Smokeless Tobacco: Never Alcohol Use Standard Drinks/Week Comments Yes 1 (1 standard drink = 0.6 oz pur e alcohol) occasionally Education Answer Date Recorded Are you interested in more education? Not on jes e 12/06/2022 Are you concerned about learning? Not on file 12/06/2022 No 12/06/2022 No 12/06/2022 Digital Access Answer Date Recorded No 01/06/2023 No 01/06/2023 No 01/06/2023 Reliable internet access at home? Not on file 01/06/2023 Device with a working camera? Not on file Sex and Gender Information Value Date Recorded Sex Assigned at Not on file Legal Sex Male 9:42 PM EDT Gender Identity Not on file Sexual Orientation Not on file Last Filed Vital Signs Vital Sign Reading Time Taken Comments Blood Pressure 138/80 11/06/2017 9:59 AM EDT Pulse 76 11/06/2017 9:59 AM EDT Temperature - - Respiratory Rate - - Oxygen Saturation - - Inhaled Oxygen Concentration - - Weight 93.8 kg (206 lb 12.8 oz) 11/06/2017 9:59 AM EDT Height 177.8 cm (5' 10 ) 11/06/2017 9:59 AM EDT Body Mass Index 29.67 11/06/2017 9:59 AM EDT Plan of Treatment Health Maintenance Due Date Last Done Comments Adult Td,Tdap Booster 1965 DEPRESSION SCREENING 1976 HEPATITIS C SCREENING 1982 HIV ONE-TIME SCREENING (18-65 YEARS) 1982 SMOKING STATUS SCREENING (Once After 26 Yrs) 1990 COLOGUARD 2009 COLONOSCOPY 2009 COLORECTAL CANCER SCREENING 2009 FIT TEST 2009 FOBT 2009 SIGMOIDOSCOPY 2009 VIRTUAL COLONOSCOPY 2009 PNEUMOCOCCAL VACCINES (50+ years) (1 of 1 - PCV) 2014 ZOSTER VACCINES (1 of 2) 2014 INFLUENZA VACCINE (#1) 2025 0, 05/13/2019, 06/02/2018, Additional history exists COVID-19 VACCINE ( season) 2025 12/13/2020, 11/22/2020 LIPID PANEL 09/13/2026 09/13/2021, 02/0 08/2020, 04/03/2020, Additional history exists RSV VACCINE (1 - 1-dose 75+ series) 2039 HEPATITIS A VACCINES Aged Out No long er eligible based on patient's age to complete this topic HIB VACCINES Aged Out No longer eligi ble based on patient's age to complete this topic MENINGOCOCCAL VACCINES (ACWY) Aged Out No longer eligible based on patient's age to complete this topic MENINGOCOCCAL VACCINES (B) Aged Out N o longer eligible based on patient's age to complete this topic Medical Devices Not on file Procedures Procedure Name Priority Date/Time Associated Diagnosis Comments LIPID PANEL Routine 09/13/2021 2:59 PM EST Routine general medical examination at a health care facility Anemia, unspecified type Prediabetes Gilbert's syndrome Elevated prostate specific antigen (PSA) Lymphocytosis from Last 3 Months or Most Recently Relevant to Health Maintenance Results * (ABNORMAL) Lipid panel (09/13/2021 2:59 PM EST) HDL 54 mg/dL [facility] Comment: Interpretation <40 mg/dL: Low HDL cholesterol (major risk factor for CHD) Greater than or equal to 60 mg/dL: High HDL cholesterol ( negative risk factor for CHD) HDL - cholesterol is affected by a number of factors, e.g. smoking, excerise, hormones, sex and age. CHOLESTEROL 175 0 - 240 mg/dL [facility] TRIGLYCERIDES 83 30 - 160 mg/dL [facility] LDL 104 50 - 129 mg/dL [facility] Comment: LDL levels in terms of risk for coronary heart disease: <100 mg/dL: Optimal 100-129 mg/dL: Near or above optimal 130-159 mg/dL: Borderline high 160-189 mg/dL: High >190 mg/dL: Very High CARDIAC RISK RATIO 3.2(L) 3.4 - 5.0 C [facility] Blood 09/13/2021 2:59 PM EST 09/13/2021 3:03 PM EST us Gio Valdez MD LAB BLOOD ORDERABLES nal Result [facility] [address] [place] [address] from Last 3 Months or Most Recently Relevant to Health Maintenance Insurance [facility] [id number] [place] [id number] [place] [id number] [place] [address]O [facility] Address: [address] [address] Care Teams Frame Bender Relationship Specialty Start Date End Date Gio Valdez MD [address] [place] [address] PCP - General Internal Medicine 11/03/17 Additional Source Comments The information contained in this document represents components of the legal health record. It is not the complete legal health record.[facility]
--- OUTSIDE RECORDS SUMMARY | 2025-06-08 08:06 | XMS_ITS | Encounter Summary ---
Author Organization [facility] Address [address] [place] [address] [place] [address] Phone Care Team Providers Care Sales Service Coordinator Name Role Phone Gio Valdez MD Primary Care Provider Encounter Details Date Type Department Care Team (Late st Contact Info) Description 12/12/2017 Transcribe Orders [facility] [address] [facility] 2nd [place] [address] Gio Valdez MD [address] [place] [address] Earnest [place], [place] [phone] Routine general medical examination at a health care facility (Primary Dx); Anemia, unspecified type; Other abnormal glucose Social History Tobacco Use Types Packs/Day Years [...] as of this encounter Results * (ABNORMAL) Urinalysis (12/12/2017 2:37 PM EDT) COLOR STRAW(A) Yellow [facility] CLARITY Clear [facility] GLUCOSE Negative Negative [facility] BILI Negative Negative [facility] KETONES Negative Negative [facility] SPECIFIC GRAVITY <1.005 1.005 - 1.030 [facility] BLOOD Negative Negative [facility] PH 6.5 5.0 - 8.0 [facility] Protein-UA Negative Negative [facility] NITRITE Negative Negative [facility] Leukocyte esterase, ur Negative Negative [facility] Urine (Urine) 12/12/2017 2:3 7 PM EDT 12/12/2017 2:39 PM EDT Gio Valdez MD URINE ORDERABLES Final Result Performing Organization Address [facility] Co de Phone Number [address] [address] * Microalbumin/creatinine ratio, random urine (12/12/2017 2:37 PM EDT) URINE MICROALBUMIN 0.1 0 - 2.3 mg/dL [facility] URINE CREATININE 14 mg/dL [facility] MICROALB/CRE RATIO NOT CALCULATED 0 - 20 mg/g Cre [facility] Comment:due to Microalbumin <1.2 Urine (Urine) 12/12/2017 2:3 7 PM EDT 12/12/2017 2:39 PM EDT Gio Valdez MD URINE ORDERABLES Final Result Performing Organization Address [facility] Co de Phone Number [address] [address] * (ABNORMAL) CBC and differential (12/12/2017 2:05 PM EDT) WBC 7.15 3.40 - 11.20 K/uL [facility] RBC 4.48(L) 4.50 - 5.50 M/uL [facility] HGB 14.7 13.0 - 17.0 g/dL [facility] HCT 41.3 40.0 - 51.0 % [facility] PLT 262 130 - 400 K/uL [facility] MCV 92.2 79.0 - 98.0 fL [facility] MCH 32.8 27.0 - 34.8 pg [facility] MCHC 35.6 31.5 - 36.0 g/dL [facility] RDW 12.0 10.8 - 14.6 % [facility] MPV 9.7 9.4 - 12.4 [facility] [employer] [facility] NRBC 0.00 /100 WBCs [facility] ABSOLUTE NRBC 0.00 K/uL [facility] DIFF METHOD Auto [facility] NEUTS 50.8 45.30 - 77.70 % [facility] LYMPHS 37.3 12.30 - 39.70 % [facility] MONOS 7.8 4.10 - 12.80 % [facility] EOS 3.5 0 - 7.2 % [facility] BASOS 0.6 0 - 2.80 % [facility] Granulocytes, immature (%) 0.0 0.0 - 0.9 % [facility] ABSOLUTE NEUTS 3.63 1.40 - 7.70 K/uL [facility] ABSOLUTE LYMPHS 2.67 0.60 - 3.20 K/uL [facility] ABSOLUTE MONOS 0.56 0.11 - 0.59 K/uL [facility] ABSOLUTE EOS 0.25 0.01 - 0.50 K/uL [facility] ABSOLUTE BASOS 0.04 0.00 - 0.08 K/uL [facility] Granulocytes, immature 0.00 0.00 - 0.05 K/uL [facility] Blood 12/12/2017 2:05 PM EDT 12/12/2017 2:12 PM EDT Gio Valdez MD LAB BLOOD ORDERABLES Fi nal Result Performing Organization Address [facility] Co de Phone Number [address] [address] * PSA (screening) (12/12/2017 2:05 PM EDT) PSA 2.22 0 - 4.00 ng/mL [facility] Blood 12/12/2017 2:05 PM EDT 12/12/2017 2:12 PM EDT Gio Valdez MD LAB BLOOD ORDERABLES Fi nal Result Performing Organization Address [facility] Co de Phone Number [address] [address] * (ABNORMAL) Lipid panel (12/12/2017 2:05 PM EDT) HDL 57 mg/dL [facility] Comment: Interpretation: Risk Level Males Decreased >45 mg/dL Average 40-45 mg/dL Increased <40 mg/dL CHOLESTEROL 174 0 - 240 mg/dL [facility] TRIGLYCERIDES 201(H) 30 - 160 mg/dL [facility] LDL 77 50 - 129 mg/dL [facility] Comment: LDL levels in terms of risk for coronary heart disease: <100 mg/dL: Optimal 100-129 mg/dL: Near or above optimal 130-159 mg/dL: Borderline high 160-189 mg/dL: High >190 mg/dL: Very High CARDIAC RISK RATIO 3.1(L) 3.4 - 5.0 [facility] Blood 12/12/2017 2:05 PM EDT 12/12/2017 2:12 PM EDT Gio Valdez MD LAB BLOOD ORDERABLES Fi nal Result [address] [address] * (ABNORMAL) Uric acid (12/12/2017 2:05 PM EDT) URIC ACID 7.6(H) 2.4 - 7.0 mg/dL [facility] Blood 12/12/2017 2:05 PM EDT 12/12/2017 2:12 PM EDT Gio Valdez MD LAB BLOOD ORDERABLES Fi nal Result [address] [address] * Comprehensive metabolic panel (12/12/2017 2:05 PM EDT) SODIUM 141 133 - 146 mmol/L [facility] POTASSIUM 4.3 3.3 - 5.1 mmol/L [facility] CHLORIDE 102 96 - 108 mmol/L [facility] CO2 28 21 - 35 mmol/L [facility] BUN 8 6 - 19 mg/dL [facility] CREATININE 0.80 0.5 - 1.5 mg/dL [facility] GLUCOSE 86 70 - 99 mg/dL [facility] ALBUMIN 4.0 3.9 - 4.8 g/dL [facility] TOTAL PROTEIN 6.7 6.5 - 8.0 g/dL [facility] CALCIUM 9.2 8.4 - 10.3 mg/dL [facility] ALKALINE PHOSPHATASE 75 39 - 117 U/L [facility] TOTAL BILIRUBIN 1.2 0.0 - 1.2 mg/dL [facility] AST 24 0 - 37 U/L [facility] ALT 26 0 - 40 U/L [facility] GLOBULIN 2.7 1 - 4.8 g/dL [facility] EGFR 102 >59 mL/min/1.7 3m2 [facility] Comment:If patient is black, multiply result by 1.159. The eGFR calculation has changed from the MDRD equation to the CKD-EPI equation as of October 14, 2017. ANION GAP 15 10 - 20 mmol/L [facility] Blood 12/12/2017 2:05 PM EDT 12/12/2017 2:12 PM EDT Gio Valdez MD LAB BLOOD ORDERABLES Fi nal Result Performing Organization Address [facility] Co de Phone Number [address] [address] * Hemoglobin A1c (12/12/2017 2:05 PM EDT) HEMOGLOBIN A1C 4.9 4.3 - 5.8 % [facility] Blood 12/12/2017 2:05 PM EDT 12/12/2017 2:12 PM EDT Gio Valdez MD LAB BLOOD ORDERABLES Fi nal Result Performing Organization Address [facility] Co de Phone Number [address] [address] documented in this encounter Visit Diagnoses Diagnosis Routine general medical examination at a health care facility- Primary Anemia, unspecified type Other abnormal glucose documented in this encounter Care Teams Sales Service Coordinator Relationship Specialty Start Date End Date Gio Valdez MD [address] [place] [address] [place] [address] PCP - General Internal Medicine 11/03/17 documented as of this encounter Additional Source Comments The information contained in this document represents components of the legal health record. It is not the complete legal health record.[facility]
--- OUTSIDE RECORDS SUMMARY | 2025-06-08 08:06 | XMS_ITS | Encounter Summary ---
Author Organization [facility] Address [address] [place] [address] Phone Care Team Providers Care Hot Walker Name Role Phone Gio Valdez MD Primary Care Provider Encounter Details Date Type Department Care Team (Late st Contact Info) Description 11/06/2017 Transcribe Orders [facility] Laboratory [address] [place] [address] Bernabe Kennedy MD [address] [place] [address] Swelling of right knee joint (Primary Dx) [...] SCREEN ON HEP 2 Positive(A ) Negative [facility] Comment:An JUAN Titer has bee n reflexed. The results will follow. Blood 11/06/2017 2:15 PM EDT 11/06/2017 2:19 PM EDT us Bernabe Kennedy MD LAB BLOOD ORDERABLES Fi nal Result [address] [address] documented in this encounter Visit Diagnoses Diagnosis Swelling of right knee joint- Primary Effusion of lower leg joint documented in this encounter Care Teams Hot Walker Relationship Specialty Start Date End Date Gio Valdez MD [address] [place] [address] [place] [address] PCP - General Internal Medicine 11/03/17 documented as of this encounter Additional Source Comments The information contained in this document represents components of the legal health record. It is not the complete legal health record.[facility]
== END 2025-06-08 08:03 | disposition home or self-care (01) ==
LOC: HO.BBR 08:02
PROVIDERS: PCP Internal Medicine; Visit Provider Internal Medicine
DX: Z13.89 Encounter for screening for other disorder (principal)

== ENCOUNTER 2025-06-20 02:54 | Inpatient (IN) | payer OTHER, SELFPAY ==
--- OUTSIDE RECORDS SUMMARY | 2024-11-25 02:15 | XMS_ITS ---
Author Organization Gio Valdez MD Address [address] [place], [place] [id number] Care Team Providers Care Compensation Consulting Manager Name Role Phone Gio Valdez Primary Care Provider [phone] Results Component Value Reference Range Notes Complete Blood Count Auto Di ff Reviewed date:11/25/2024 06:13:42 PM Interpretation: Performing Lab:[facility], [address] [place] [phone] Notes/Report: White Blood Count 8.2 4.8-10.8 X10*3/uL Red Blood Count 4.61 4.60-5.80 X10*6/uL Hemoglobin 15.1 14.0-18.0 g/dl Hematocrit 44.6 42.0-52.0 % Mean Corpuscular Volume 96.7 80.0-98.0 fL Mean Corpuscular Hemoglobin 32.8 27.0-33.0 pg Mean Corpuscular HGB Conc 33.9 31.0-36.0 g/dl Red Cell Distribution Width 12.6 11.0-16.0 % Platelet Count 243 160-400 X10*3/uL Mean Platelet Volume 9.8 9.4-12.4 fL Neutrophils Percent Auto 48.8 45-73 % Imm Gran Pct Auto 0.5 0.0-0.4 % Lymphocytes Percent Auto 42.1 20-40 % Monocytes Percent Auto 7.5 2-11 % Eosinophils Percent Auto 0.9 0-4 % Basophils Percent Auto 0.2 0-2 % NRBC Pct Auto 0.0 0.0-0.2 /100WBC Neutrophils Absolute Auto 4.0 2.0-8.3 x10*3/u L Imm Gran Abs Auto 0.04 0.00-0.03 X10*3/uL Lymphocytes Absolute Auto 3.4 1.2-4.9 X10*3/u L Monocytes Absolute Auto 0.6 0.1-1.2 X10*3/uL Eosinophils Absolute Auto 0.1 0.0-0.4 X10*3/u L Basophils Absolute Auto 0.0 0.0-0.2 X10*3/uL NRBC Abs Auto 0.000 0.0-0.012 X10*3/uL Comprehensive [place]. Panel Fa Reviewed date:11/26/2024 09:34:00 AM Interpretation: Performing Lab:[address] [phone] Notes/Report: Sodium 139 135-145 mmol/L Potassium 4.2 3.3-5.1 mmol/L Chloride 105 96-108 mmol/L Carbon Dioxide 25 22-29 mmol/L Anion Gap 13 12-20 Blood Urea Nitrogen 28 9-16 mg/dL Creatinine 0.94 0.5-1.4 mg/dL Estimated Glomerular Filt Rate > 60 Chronic Kidney Disease: Estimated GFR < 60 mL/min/1.73m2 Severe Kidney Disease: Estimated GFR < 15 mL/min/1.73m2 Glucose Fasting 112 60-99 mg/dL A fasting glucose from 100-125 mg/dl is considered impaired (pre-diabetes). Calcium 9.2 8.4-10.2 mg/dL Bilirubin Total 1.3 0.0-1.0 mg/dL Aspartate Amino Transferase 26 5-37 U/L Alanine Aminotransferase 26 0-40 U/L Total Protein 6.7 6.5-8.0 g/dL Albumin Level 4.0 3.5-5.0 g/dL Alkaline Phosphatase 56 39-117 U/L Ferritin Reviewed date:11/25/2024 06:06:01 PM Interpretation: Performing Lab:[address] [phone] Notes/Report: Ferritin 57 20-250 ng/mL Lipid Panel Reviewed date:11/25/2024 06:07:22 PM Interpretation: Performing Lab:[facility] [address] [phone] Notes/Report: Triglycerides 120 <150 mg/dL Desirable Triglyceride: less than 150 mg/dL Borderline High Triglyceride 150-199 mg/dL High Triglyceride: 200-499 mg/dL Very High Triglyceride: greater than or equal to 5OO mg/dL Cholesterol 191 <200 mg/dL Desirable Cholesterol: less than 200 mg/dL Borderline High Cholesterol: 200-239 mg/dL High Cholesterol: greater than 239 mg/dL LDL Cholesterol Calculated 96 <100 mg/dL Desirable LDL: less than 100 mg/dL Near Optimal/Above Optimal LDL: 110-129 mg/dL Borderline High LDL: 130-159 mg/dL High LDL: 160-189 mg/dL Very High LDL: greater than or equal to 190 mg/dL HDL Cholesterol 71 >40 mg/dL Desirable HDL: greater than 40 mg/dL Note: This HDL assay may give artificially low results in patients with liver disease. PSA,Total (Free>4and<10) Reviewed date:11/25/2024 06:07:14 PM Interpretation: Performing Lab:[address] [phone] Notes/Report: PSA,Total (Free>4and<10) 2.50 0.00-4.00 ng/mL A Free PSA was not performed: The percentage of Free PSA can be used to enhance the differentiation of prostate cancer from benign prostatic disease in subjects whose PSA levels are between 4.0 and 10.0 ng/mL. For subjects whose PSA levels are below 4.0 or above 10.0 ng/mL, the risk of prostate cancer is determined on the basis of the PSA alone. Therefore the % Free PSA is recommended only for those subjects whose PSA levels are between 4.0 and 10.0 ng/mL. PSA methodology: Mukherjee Alinity i Chemiluminescent Microparticle Immunoassay (CMIA) Microalbumin, Random Reviewed date:11/25/2024 06:07:04 PM Interpretation: Performing Lab:[address] [phone] Notes/Report: Creatinine Urine 88.32 Microalbumin Urine < 5.0 Microalbum/Creatinine Ratio Ur TNP <30 ug/mg cr Unable to calculate albumin/creatinine ratio due to low microalbumin or creatinine result. Hemoglobin A1c Reviewed date:11/25/2024 06:06:21 PM Interpretation: Performing Lab:[facility], [address] [place] [phone] Notes/Report: Hemoglobin A1c % 4.9 <6.0 % Hemoglobin A1C Reference Range Adults: 4.8 - 6.0 % Non diabetic: < 6.0 % Goal: < 7.0 % Additional Action Suggested: > 8.0 % Note: Hemoglobin A1c results are invalid for patients with abnormal amounts of HbF. Blood transfusions may impact the HbA1c concentration in the patient sample. Estimated Average Glucose 94 eAG = Estimated average glucose which is %A1C expressed as average glucose, using the formula of the O2K-Abwgjlp Average Glucose study (ADAG), Diabetes Care, Vol.31,#8, 2007 UA ClnCatch+Micro w/rflx Cul t Reviewed date:11/25/2024 06:10:51 PM Interpretation: Performing Lab:[facility], [address] [place] [phone] Notes/Report: Urine, Clean Catch Color Urine Yellow Appearance Urine Clear PH 5.5 5.0-9.0 Glucose Urine UA Negative Negative mg/dL Urine Blood Negative Negative Specific [place] - Urine 1.020 1.005-1.025 Urine Protein Negative Neg-Trace mg/dL Urine Ketones Negative Negative mg/dL Nitrite Urine Negative Negative Leukocyte Esterase Urine Negative Negative RBC Urine 0-2 0-2 /HPF WBC Urine 0-5 0-5 /HPF Squamous Epithelial Cell Urine 0-2 0-2 /HPF Bacteria Urine None Seen None Seen Hyaline Casts Urine 0-2 0-2 /LPF REASON FOR VISIT yearly fasting labs Encounters Encounter Location Date Provider Diagnosis Gio Valdez MD [address] [place] [address] Drive [address] [place], [place] [phone] 11/25/2024 Gio Valdez Blood tests for rout ine general physical examination Z00.00 ; Anemia, unspecified D64.9 ; Prediabetes R73.09 ; Rising PSA level R97.20 and Other hemochromatosis E83.118 Assessments Encounter Date Diagnosis (ICD Code) Assessment Notes Treatment Notes Treatment Clinical Notes Section Notes 11/25/2024 Blood tests for routine general physical examination (ICD-10 - Z00.00) 11/25/2024 Anemia, unspecified (ICD-10 - D64.9) 11/25/2024 Prediabetes (ICD-10 - R73.09) 11/25/2024 Rising PSA level (ICD-10 - R97.20) 11/25/2024 Other hemochromatosis (ICD-10 - E83.118) Plan Of Treatment Next Appt Details Provider Name:Gio Tran ier, 11/29/2025 07:15:00 AM, [address], [address], [place], [place], [phone], Provider Name:Gio Tran ier, 12/05/2025 08:30:00 AM, [address], [address], [place], [place], [phone], Progress Notes * Reuben ROMEDOB: [birth year] (60 yo M)Acc No.[id number]:11/25/2024 Progress Note Patient: Reuben PERALES Provider: Ron Valdez MD :1965 A ge:59 Y S ex:Male Date:11/25/2024 Address:[address] [place], [place] [phone] Subjective: * Chief Complaints: * 1 . Yearly fasting labs. * Medical History: Objective: * Vitals: Assessment: * Assessment: 1. B lood tests for routine general physical examination - Z00.00 (Primary) 2 .?Anemia, unspecified - D64.9 3 . P rediabetes - R73.09 4 .?Rising PSA level - R97.20 5 . O ther hemochromatosis - E83.118 ? Plan: * Treatment: 2. A nemia, unspecified L AB: Complete Blood Count Auto Diff (Collection Date & Time - 11/25/2024 07:15 AM) L AB: Comprehensive [place]. Panel Fast (Collection Date & Time - 11/25/2024 07:15 AM) L AB: Lipid Panel (Collection Date & Time - 11/25/2024 07:15 AM) L AB: PSA,Total (Free>4and<10) (Collection Date & Time - 11/25/2024 07:15 AM) L AB: Microalbumin, Random (Collection Date & Time - 11/25/2024 07:15 AM) L AB: Hemoglobin A1c (Collection Date & Time - 11/25/2024 07:15 AM) L AB: UA ClnCatch+Micro w/rflx Cult (Collection Date & Time - 11/25/2024 07:15 AM) 3. P rediabetes L AB: Complete Blood Count Auto Diff (Collection Date & Time - 11/25/2024 07:15 AM) L AB: Comprehensive [place]. Panel Fast (Collection Date & Time - 11/25/2024 07:15 AM) L AB: Lipid Panel (Collection Date & Time - 11/25/2024 07:15 AM) L AB: PSA,Total (Free>4and<10) (Collection Date & Time - 11/25/2024 07:15 AM) L AB: Microalbumin, Random (Collection Date & Time - 11/25/2024 07:15 AM) L AB: Hemoglobin A1c (Collection Date & Time - 11/25/2024 07:15 AM) L AB: UA ClnCatch+Micro w/rflx Cult (Collection Date & Time - 11/25/2024 07:15 AM) 4. R ising PSA level L AB: Complete Blood Count Auto Diff (Collection Date & Time - 11/25/2024 07:15 AM) L AB: Comprehensive [place]. Panel Fast (Collection Date & Time - 11/25/2024 07:15 AM) L AB: Lipid Panel (Collection Date & Time - 11/25/2024 07:15 AM) L AB: PSA,Total (Free>4and<10) (Collection Date & Time - 11/25/2024 07:15 AM) L AB: Microalbumin, Random (Collection Date & Time - 11/25/2024 07:15 AM) L AB: Hemoglobin A1c (Collection Date & Time - 11/25/2024 07:15 AM) L AB: UA ClnCatch+Micro w/rflx Cult (Collection Date & Time - 11/25/2024 07:15 AM) 5. O ther hemochromatosis L AB: Ferritin (Collection Date & Time - 11/25/2024 07:15 AM) * Procedure Codes: 3 6415 VENIPUNCT, ROUTINE* * * The named appointment provid er may or may not be the originator of this progress note, and it is not deemed complete until electronically signed by the appointment provider. Sign off status: Pending * Provider: Ron Valdez MD Date: 0 11/25/2024 Generated for Barb Ernandez/Tiffany on: 08/20/2024 03:28 AM EST
--- OUTSIDE RECORDS SUMMARY | 2024-12-02 03:00 | XMS_ITS ---
Author Organization Gio Valdez MD Address [address] [place], [place] [id number] Care Team Providers Care Probation Worker Name Role Phone Gio Valdez Primary Care Provider Allergies No Known Allergies Results Component Value Reference Range Notes Blood Urea Nitrogen Reviewed date:12/02/2024 12:44:50 PM Interpretation: Performing Lab:[facility], [address] [place] [phone] Notes/Report: Blood Urea Nitrogen 19 9-16 mg/dL Uric Acid Reviewed date:12/02/2024 12:44:38 PM Interpretation: Performing Lab:[address] [phone] Notes/Report: Uric Acid 4.3 3.4-7.0 mg/dL REASON FOR VISIT annual visit, Draw BUN and Uric acid Medications Medication SIG (Take, Route, Fr equency, Duration) Notes Start Date End Date Status Indomethacin 50 MG TAKE 1 CAPSULE BY MO [facility] THREE TIMES DAILY WITH FOOD for 30 Not -Taking Allopurinol 300 MG TAKE 1 TABLET BY GEORGE EVERY DAY for 30 Active predniSONE 20 MG 2 tablets Oral Once a day for 5 days 09/03/2022 Not-Taking CeleBREX 200 MG 1 capsule with food Orally Once a day for 20 days 11/29/2021 Not-Amelia kimbrough Social History Tobacco Use: Social History Observation [...] Never (0 point) Points 4 Interpretation Positive Vital Signs Blood pressure systolic 122 mm Hg 12/03/19 25 Blood pressure diastolic 76 mm Hg 025 Height 70 in 12/02/2024 Weight 217 lbs 12/02/2024 BMI 31.13 kg/m2 12/02/2024 weight is up 5 pounds since 11-27-23 Encounters Encounter Location Date Provider Diagnosis Gio Valdez MD [address] [place] [address] [address] [place], [place] [id number] 12/02/2024 Gio Valdez Gout M10.9 ; Adult general medical examination Z00.00 ; Elevated BUN R79.9 ; Plantar fasciitis of left foot M72.2 and Hereditary hemochromatosis E83.110 Assessments Encounter Date Diagnosis (ICD Code) Assessment Notes Treatment Notes Treatment Clinical Notes Section Notes 12/02/2024 Gout (ICD-10 - M10.9) doing well, will continue to monitor 12/02/2024 Adult general medical examination (ICD-10 - Z00.00) labs reviewed and discussed with patient 12/02/2024 Elevated BUN (ICD-10 - R79.9) pending abs, will continue to monitor 12/02/2024 Plantar fasciitis of left foot (ICD-10 - M72.2) gave exercises 12/02/2024 Hereditary hemochromatosis (ICD-10 - E83.110) will continue to monitor Plan Of Treatment Treatment Notes Assessment Notes Gout doing well, will con tinue to monitor Adult general medical examination labs r eviewed and discussed with patient Elevated BUN pending abs, will co ntinue to monitor Plantar fasciitis of left foot gave exer cises Hereditary hemochromatosis will continue to monitor Pending Test Test Name Order Date IRON PROFILE 12/02/2024 Ferritin 12/02/2024 Next Appt Details Follow Up: 1 Year, Reason: Provider Name:Gio Tran ier, 11/29/2025 07:15:00 AM, [address], [address], [place], [place], [phone], Provider Name:Gio Tran dionnar, 12/05/2025 08:30:00 AM, [address], [address], [place], [phone], Progress Notes * Reuben ROMEDOB: [birth year] (59 yo M)Acc No.[id number]:12/02/2024 Progress Notes Patient: Reuben PERALES Provider: Ron Valdez MD :1965 A ge:59 Y S ex:Male Date:12/02/2024 Address:[address] [place], [place] [phone] Subjective: * Chief Complaints: * A nnual visitDraw BUN and Uric acid * HPI: D epression Screening: PHQ-9 L ittle interest or pleasure in doing things N ot at all, F eeling down, depressed, or hopeless N ot at all, T rouble falling or staying asleep, or sleeping too much N ot at all, F eeling tired or having little energy N ot at all, P oor appetite or overeating N ot at all, F eeling bad about yourself or that you are a failure, or have let yourself or your family down N ot at all, T rouble concentrating on things, such as reading the newspaper or watching television N ot at all, M oving or speaking so slowly that other people could have noticed; or the opposite, being so fidgety or restless that you have been moving around a lot more than usual N ot at all, T houghts that you would be better off or of hurting yourself in some way N ot at all, T otal Score 0 . I nterpretation and Intervention D epression Screening Findings N egative, F ollow-Up for Depression : review of PHQ-9 found negative result, no follow-up needed. C ommunication Needs: Communication Needs D oes the patient have a hearing impairment N o, D oes the patient have a vision impairment? Y es, I f yes, what is the vision impairment? G lasses, D oes the patient have a cognition impairment? N o. F all Risk: History H ave you had any falls with injury in the past year? N o, H ave you had two or more falls in the past year? N o. S ALEX Questions: SDOH Questions I n the past year have you been worried about losing housing? N o, I n the past year have you or any family members you live with been unable to get any of the following when it was really needed? Check all that apply: N one. S ymptom(s): patient is a 59 yo male here for review of recent labs and follow up of chronic issues. * ROS: G eneral/Constitutional: Change in appetite d enies. C hills d enies. F ever d enies. O phthalmologic: Blurred vision d enies. D ischarge d enies. P ain d enies. E NT: Decreased hearing d enies. S ore throat d enies.?Swollen glands d enies. E ndocrine: Cold intolerance d enies. E xcessive thirst d enies. H eat intolerance d enies. W eight loss d enies. R espiratory: Cough d enies. S hortness of breath at rest d enies. S hortness of breath with exertion d enies. W heezing d enies. C ardiovascular: Chest pain at rest d enies. C hest pain with exertion?denies. I rregular heartbeat d enies. S hortness of breath d enies. ? G astrointestinal: Abdominal pain d enies. C hange in bowel habits d enies. D iarrhea d enies. N ausea d enies. R ectal bleeding d enies. V omiting d enies . G enitourinary: Blood in urine d enies. D ifficulty urinating d enies. F requent urination d enies. M usculoskeletal: Painful joints d enies. W eakness d enies. ? S kin: Dry skin d enies. I tching d enies. D enies?Mole(s), changes in moles, new moles or any lesions of concern. D enies P hotosensitivity. R martha d enies. N eurologic: Dizziness d enies. F ainting d enies. H eadache?denies. * Medical History: * Surgical History: * Hospitalization/Major Diagno stic Procedure: * Family History: F ather: 44 yrs, vendor relationship manager and killed. M other: 69 yrs, pancreatic cancer. M aternal uncle: , pancreatic cancer. M aternal aunt: , pancreatic cancer. 2 brother(s) , 1 sister(s) - healthy. 1 son(s) . . fATHER- GERIATRIC AIDE MOTHER-PANCREATIC CANCER, Denies mental health/substance abuse family history, No pertinent family medical history, No pertinent family medical history, Denies mental health/substance abuse family history. * Social History: T obacco Use: T obacco Use/Smoking P atient is a n onsmoker, A dditional Findings: Tobacco Non-User C urrent non-smoker, currently using no form of tobacco. D rugs/Alcohol: A lcohol Screen D id you have a drink containing alcohol in the past year? Y es, H ow often did you have a drink containing alcohol in the past year? 4 or more times a week (4 points), H ow many drinks did you have on a typical day when you were drinking in the past year? 1 or 2 drinks (0 point), H ow often did you have 6 or more drinks on one occasion in the past year? N ever (0 point), P oints 4 , I nterpretation P ositive. M iscellaneous: C affeine: no. Children: no. Community involvements: yes. Exercise: yes, WALKING X 30 MINUTES 2 TIMES A WEEK. Home smoke detector use: yes. Marital status: . 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 Pets: cats: dogs: 3 dogs. Travel outside of the [place]: no. * Medications: T akingAllopurinol 300 MG Tablet TAKE 1 TABLET BY MOUTH EVERY DAY Taking Allopurinol 300 MG Tablet TAKE 1 TABLET BY MOUTH EVERY DAY Not-Taking/PRNIndomethacin 50 MG Capsule TAKE 1 CAPSULE BY MOUTH THREE TIMES DAILY WITH FOOD predniSONE 20 MG Tablet 2 tablets Oral Once a day CeleBREX 200 MG Capsule 1 capsule with food Orally Once a day Not-Taking/PRN Indomethacin 50 MG Capsule TAKE 1 CAPSULE BY MOUTH THREE TIMES DAILY WITH FOOD Not-Taking/PRN predniSONE 20 MG Tablet 2 tablets Oral Once a day Not-Taking/PRN CeleBREX 200 MG Capsule 1 capsule with food Orally Once a day DiscontinuedpredniSONE 20 MG Tablet 2 tablets Orally Once a day Medication List reviewed and reconciled with the patientDiscontinued predniSONE 20 MG Tablet 2 tablets Orally Once a day Medication List reviewed and reconciled with the patient * Allergies: N .K.D.A.yes[Allergies Verified] Objective: * Vitals: H t: 70, Wt: 217, BMI:31.13, BP:122/76, Wt-k.43. weight is up 5 pounds since 11-27-23. * P ast Orders: L ab:Microalbumin, Random (Order Date - 11/25/2024) (Collection Date & Time - 11/25/2024 07:15 AM) Value Reference Range Creatinine Urine 88.32 - mg/dL Microalbumin Urine < 5.0 - mg/L Microalbum Creatinine Ratio Ur TNP <30 - ug/ mg cr L ab:Complete Blood Count Auto Diff (Order Date - 11/25/2024) (Collection Date & Time - 11/25/2024 07:15 AM) Value Reference Range White Blood Count 8.2 4.8-10.8 - X10*3/uL Red Blood Count 4.61 4.60-5.80 - X10*6/uL Hemoglobin 15.1 14.0-18.0 - g/dl Hematocrit 44.6 42.0-52.0 - % Mean Corpuscular Volume 96.7 80.0-98.0 - fL Mean Corpuscular Hemoglobin 32.8 27.0-33.0 - pg Mean Corpuscular HGB Conc 33.9 31.0-36.0 - g/ dl Red Cell Distribution Width 12.6 11.0-16.0 - % Platelet Count 243 160-400 - X10*3/uL Mean Platelet Volume 9.8 9.4-12.4 - fL Neutrophils Percent Auto 48.8 45-73 - % Imm Gran Pct Auto 0.5 H 0.0-0.4 - % Lymphocytes Percent Auto 42.1 H 20-40 - % Monocytes Percent Auto 7.5 2-11 - % Eosinophils Percent Auto 0.9 0-4 - % Basophils Percent Auto 0.2 0-2 - % NRBC Pct Auto 0.0 0.0-0.2 - /100WBC Neutrophils Absolute Auto 4.0 2.0-8.3 - x10* 3/uL Imm Gran Abs Auto 0.04 H 0.00-0.03 - X10*3/uL Lymphocytes Absolute Auto 3.4 1.2-4.9 - X10* 3/uL Monocytes Absolute Auto 0.6 0.1-1.2 - X10*3/ uL Eosinophils Absolute Auto 0.1 0.0-0.4 - X10* 3/uL Basophils Absolute Auto 0.0 0.0-0.2 - X10*3/ uL NRBC Abs Auto 0.000 0.0-0.012 - X10*3/uL L ab:Hemoglobin A1c (Order Date - 11/25/2024) (Collection Date & Time - 11/25/2024 07:15 AM) Value Reference Range Hemoglobin A1c % 4.9 <6.0 - % Estimated Average Glucose 94 - mg/dL L ab:Comprehensive [place]. Panel Fast (Order Date - 11/25/2024) (Collection Date & Time - 11/25/2024 07:15 AM) Value Reference Range Sodium 139 135-145 - mmol/L Bilirubin Total 1.3 H 0.0-1.0 - mg/dL Aspartate Amino Transferase 26 5-37 - U/L Alanine Aminotransferase 26 0-40 - U/L Total Protein 6.7 6.5-8.0 - g/dL Albumin Level 4.0 3.5-5.0 - g/dL Alkaline Phosphatase 56 39-117 - U/L Potassium 4.2 3.3-5.1 - mmol/L Chloride 105 96-108 - mmol/L Carbon Dioxide 25 22-29 - mmol/L Anion Gap 13 12-20 - Blood Urea Nitrogen 28 H 9-16 - mg/dL Creatinine 0.94 0.5-1.4 - mg/dL Estimated Glomerular Filt Rate > 60 - Glucose Fasting 112 H 60-99 - mg/dL Calcium 9.2 8.4-10.2 - mg/dL L ab:UA ClnCatch+Micro w/rflx Cult (Order Date - 11/25/2024) (Collection Date & Time - 11/25/2024 07:15 AM) Value Reference Range Color Urine Yellow - Appearance Urine Clear - PH 5.5 5.0-9.0 - Glucose Urine UA Negative Negative - mg/dL Urine Blood Negative Negative - Specific [place] - Urine 1.020 1.005-1.025 - Urine Protein Negative Neg-Trace - mg/dL Urine Ketones Negative Negative - mg/dL Nitrite Urine Negative Negative - Leukocyte Esterase Urine Negative Negative - RBC Urine 0-2 0-2 - /HPF WBC Urine 0-5 0-5 - /HPF Squamous Epithelial Cell Urine 0-2 0-2 - /HP F Bacteria Urine None Seen None Seen - Hyaline Casts Urine 0-2 0-2 - /LPF L ab:Ferritin (Order Date - 11/25/2024) (Collection Date & Time - 11/25/2024 07:15 AM) Value Reference Range Ferritin 57 20-250 - ng/mL L ab:Lipid Panel (Order Date - 11/25/2024) (Collection Date & Time - 11/25/2024 07:15 AM) Value Reference Range Triglycerides 120 <150 - mg/dL Cholesterol 191 <200 - mg/dL LDL Cholesterol Calculated 96 <100 - mg/dL HDL Cholesterol 71 >40 - mg/dL L ab:PSA,Total (Free>4and<10) (Order Date - 11/25/2024) (Collection Date & Time - 11/25/2024 07:15 AM) Value Reference Range PSA,Total (Free>4and<10) 2.50 0.00-4.00 - ng/ mL * Examination: G eneral Examination: GENERAL APPEARANCE: w ell developed, well nourished, in no acute distress. HEAD: n ormocephalic, atraumatic. EYES: p upils equal, round, reactive to light and accommodation, sclera non-icteric. EARS: n ormal. ORAL CAVITY: m ucosa moist. THROAT: c lear. NECK/THYROID: n ar supple, full range of motion, no cervical lymphadenopathy, no bruits. SKIN: w arm and dry, no suspicious lesions. HEART: r egular rate and rhythm, S1, S2 normal, no murmurs.? LUNGS: c lear to auscultation bilaterally. ABDOMEN: s oft, nontender, nondistended, bowel sounds present, normal, no organomegaly , no masses palpable. RECTAL EXAM: n ormal tone, no external hemorrhoids, no masses palpable, prostate normal, stool guaiac negative. MALE GENITOURINARY: u ncircumcised, no testicular mass, testes descended bilaterally. EXTREMITIES: n o clubbing, cyanosis, or edema, abnormal tender at insertion of plantar fascia. NEUROLOGIC: n onfocal, motor strength normal upper and lower extremities, sensory exam intact. Assessment: * Assessment: 1. A dult general medical examination - Z00.00 (Primary) 2 . G out - M10.9? 3. E levated BUN - R79.9 4 . P lantar fasciitis of left foot - M72.2 5 . H ereditary hemochromatosis - E83.110 Plan: * Treatment: 2. G out L AB: Blood Urea Nitrogen (Collection Date & Time - 12/02/2024 08:30 AM) L AB: Uric Acid (Collection Date & Time - 12/02/2024 08:30 AM) L AB: IRON PROFILE (Ordered for 06/03/2025) L AB: Ferritin (Ordered for 06/03/2025) Notes: doing well, will continue to monitor 3. E levated BUN L AB: Blood Urea Nitrogen (Collection Date & Time - 12/02/2024 08:30 AM) L AB: Uric Acid (Collection Date & Time - 12/02/2024 08:30 AM) Notes: pending abs, will continue to monitor 4. P lantar fasciitis of left foot Notes: gave exercises 5. H ereditary hemochromatosis Notes: will continue to monitor * Procedure Codes: 3 6415 VENIPUNCT, ROUTINE* * Preventive Medicine: Counseling: C are goal follow-up plan: C ounseling for abnormal BMI provided?Yes, A jovi Normal BMI Follow-up G iving encouragement to exercise. * Follow Up: 1 Year * * Sign off status: Completed true * Provider: Ron Valdez MD Date: 0 12/02/2024 Generated for Barb jonas/Darian/eTjosesmitting on: 1 08/20/2024 03:28 AM EST History and Physical Notes * HPI (History of Present Illness) Category Sub-Category Detail Notes Category Not es Symptom(s) patient is a 59 yo male here for review of recent labs and follow up of chronic issues Depression Screening PHQ-9 Little inte rest or pleasure in doing things: Not at all Feeling down, depressed, or hopeless: No t [...] really needed? Check all that apply:: None Fall Risk History Have you had any falls with injury i n the past year?: No Have you had two or more falls in the st year?: No Communication Needs Communication Needs Does the patient have a hearing impairment: No Does the patient have a vision impairmen t?: Yes If yes, what is the vision impairment?: Glasses Does the patient have a cognition impair ment?: No Examination Category Sub-Category Detail Notes Category Not es General Examination GENERAL APPEARANCE: well dev eloped, well nourished, in no acute distress HEAD: normocephalic, atrau matic EYES: pupils equal, round, reactive to light and accommodation, sclera non-icteric EARS: normal THROAT: clear NECK/THYROID: neck supple, [...] lesions EXTREMITIES: no clubbing, cyanosi s, or edema, abnormal tender at insertion of plantar fascia MALE GENITOURINARY: uncircumcised, no te sticular mass, testes descended bilaterally RECTAL EXAM: normal tone, no exte rnal hemorrhoids, no masses palpable, prostate normal, stool guaiac negative ORAL CAVITY: mucosa moist
--- OUTSIDE RECORDS SUMMARY | 2025-06-03 02:30 | XMS_ITS ---
Author Organization Gio Valdez MD Address 10 [facility] [address] [place] [phone] Care Team Providers Care Stator Winder Name Role Phone Gio Valdez Primary Care Provider [phone] REASON FOR VISIT IRON, FERRITIN Encounters Encounter Location Date Provider Diagnosis Gio Valdez MD [address] [place] [address] [place] [phone] 06/03/2025 Gio Valdez Gout M10.9 Assessments Encounter Date Diagnosis (ICD Code) Assessment Notes Treatment Notes Treatment Clinical Notes Section Notes 06/03/2025 Gout (ICD-10 - M10.9) Plan Of Treatment Pending Test Test Name Order Date IRON PROFILE 06/03/2025 Ferritin 06/03/2025 Next Appt Details Provider Name:Gio mnceill, 11/29/2025 07:15:00 AM, [address] [place] [address], [id number], Provider Name:Gio mcneill, 12/05/2025 08:30:00 AM, [address] [place] [address], [id number], Progress Notes * LALITOReuben SALGADODOB: [birth year] (60 yo M)Acc No.[id number]:06/03/2025 Progress Note Patient: Reuben PERALES Provider: Ron Valdez MD :1965 A ge:60 Y S ex:Male Date:06/03/2025 Address:[address] [place] [address] Delfino Rivas [id number] Subjective: * Chief Complaints: * 1 . IRON, FERRITIN. * Medical History: Objective: * Vitals: Assessment: * Assessment: 1. G out - M10.9 Plan: * Treatment: * * The named appointment provid er may or may not be the originator of this progress note, and it is not deemed complete until electronically signed by the appointment provider. Sign off status: Pending * Provider: Ron Valdez MD Date: Generated for Barb jonas/Darian/Cathleensmitting on: 08/20/2024 03:28 AM EST
[2025-06-20] VITALS (7 sets, daily range): BP systolic 126–161; BP diastolic 67–97; PULSE 65–108; RESP 16–18; TEMP 36.3–36.8; O2SAT 93–98; BMI 30.6; BMI 31.4
--- NOTE | ~2025-06-20 | CT_ITS ---
CLINICAL HISTORY: lower abdominal pain, severe CT abdomen and pelvis with contrast Comparison: None provided Findings: Mild dependent subsegmental atelectasis is seen in bilateral lower lobes. Several simple hepatic cysts are seen measuring up to 2.6 cm. Several additional subcentimeter hepatic hypodensities are too small to characterize. 1.0 cm simple right renal cyst is present. Mild nonspecific bilateral perinephric stranding is noted. The gallbladder, pancreas, spleen, and bilateral adrenal glands appear within normal limits. Colonic diverticulosis is present without evidence of diverticulitis. The appendix appears normal. Multiple mildly dilated loops of proximal small bowel are seen containing air-fluid levels with a transition point in the right hemiabdomen (axial image 50 of series 3). Mild adjacent mesenteric edema is seen. The distal small bowel loops are decompressed. There is no pneumoperitoneum. The urinary bladder is partially distended with mild adjacent edema. There is no adenopathy. Severe degenerative changes are seen at L4/5 and L5/S1. No acute osseous abnormality is identified. IMPRESSION: 1. Multiple mildly dilated loops of proximal small bowel containing air-fluid levels with a transition point in the right hemiabdomen consistent with small-bowel obstruction. 2. Mild edema adjacent to the urinary bladder. Recommend correlation with urinalysis. 3. Other findings as described. This document has been electronically signed by: Michael Alvarez on 06/20/2025 07:34:09
[2025-06-20 03:21] LABS: Hematocrit 41.5 % (42.0-52.0); Hemoglobin 14.7 g/dl (14.0-18.0); Imm Gran Abs Auto 0.03 X10*3/uL (0.00-0.03); Imm Gran Pct Auto 0.4 % (0.0-0.4); Lymphocytes Absolute Auto 2.6 X10*3/uL (1.2-4.9); MANUAL DIFF FLAG NO; Mean Corpuscular HGB Conc 35.4 g/dl (31.0-36.0); Mean Corpuscular Hemoglobin 33.7 pg (27.0-33.0); Mean Corpuscular Volume 95.2 fL (80.0-98.0); NRBC Abs Auto 0.000 X10*3/uL (0.0-0.012); NRBC Pct Auto 0.0 /100WBC (0.0-0.2); Platelet Count 257 X10*3/uL (160-400); Red Blood Count 4.36 X10*6/uL (4.60-5.80); White Blood Count 7.2 X10*3/uL (4.8-10.8)
--- OUTSIDE RECORDS SUMMARY | 2025-06-20 03:28 | XMS_ITS | Patient Health Record ---
Author Organization Gio Valdez MD Address [address] [place], [place] [id number] Care Team Providers Care Payroll Accounting Clerk Name Role Phone Gio Valdez Primary Care Provider [phone] Allergies No Known Allergies Results Component Value Reference Range Notes Complete Blood Count Auto Di ff Reviewed date:11/25/2024 06:13:42 PM Interpretation: Performing Lab:[facility], [address] [place] [phone] Notes/Report: White Blood Count 8.2 4.8-10.8 X10*3/uL [...] NRBC Abs Auto 0.000 0.0-0.012 X10*3/uL Comprehensive Tinnie. Panel Fa Reviewed date:11/26/2024 09:34:00 AM Interpretation: Performing Lab:[address] [phone] Notes/Report: Sodium 139 135-145 mmol/L Potassium 4.2 [...] Ferritin Reviewed date:11/25/2024 06:06:01 PM Interpretation: Performing Lab:[address] [phone] Notes/Report: Ferritin 57 20-250 ng/mL Lipid Panel Reviewed date:11/25/2024 06:07:22 PM Interpretation: Performing Lab:[facility], [address] [place] [phone] Notes/Report: Triglycerides 120 <150 mg/dL Desirable Triglyceride: [...] (Free>4and<10) Reviewed date:11/25/2024 06:07:14 PM Interpretation: Performing Lab:[address] [phone] Notes/Report: PSA,Total (Free>4and<10) 2.50 0.00-4.00 ng/mL A [...] Random Reviewed date:11/25/2024 06:07:04 PM Interpretation: Performing Lab:[address] [address] Notes/Report: Creatinine Urine 88.32 Microalbumin Urine < 5.0 Microalbum/Creatinine Ratio Ur TNP <30 ug/mg cr Unable to calculate albumin/creatinine ratio due to low microalbumin or creatinine result. Hemoglobin A1c Reviewed date:11/25/2024 06:06:21 PM Interpretation: Performing Lab:[facility], [address] [place] [phone] Notes/Report: Hemoglobin A1c % 4.9 <6.0 % [...] average glucose, using the formula of the F0C-Lajhjgq Average Glucose study (ADAG), Diabetes Care, Vol.31,#8, Mar. 2007 UA ClnCatch+Micro w/rflx Cul t Reviewed date:11/25/2024 06:10:51 PM Interpretation: Performing Lab:[facility], [address] [place] [phone] Notes/Report: Urine, Clean Catch Color Urine Yellow Appearance Urine Clear PH 5.5 5.0-9.0 Glucose Urine UA Negative Negative mg/dL Urine Blood Negative Negative Specific Corona - Urine 1.020 1.005-1.025 Urine Protein Negative Neg-Trace mg/dL Urine Ketones Negative Negative mg/dL Nitrite Urine Negative Negative Leukocyte Esterase Urine Negative Negative RBC Urine 0-2 0-2 /HPF WBC Urine 0-5 0-5 /HPF Squamous Epithelial Cell Urine 0-2 0-2 /HPF Bacteria Urine None Seen None Seen Hyaline Casts Urine 0-2 0-2 /LPF Blood Urea Nitrogen Reviewed date:12/02/2024 12:44:50 PM Interpretation: Performing Lab:[facility], [address] [place] [phone] Notes/Report: Blood Urea Nitrogen 19 9-16 mg/dL Uric Acid Reviewed date:12/02/2024 12:44:38 PM Interpretation: Performing Lab:[address] [address] Notes/Report: Uric Acid 4.3 3.4-7.0 mg/dL Complete Blood Count Auto Di ff (Not yet reviewed by provider) Interpretation: Performing Lab:[facility], [address] [place] [phone] Notes/Report: White Blood Count 7.2 4.8-10.8 X10*3/uL Red Blood Count 4.36 4.60-5.80 X10*6/uL Hemoglobin 14.7 14.0-18.0 g/dl Hematocrit 41.5 42.0-52.0 % Mean Corpuscular Volume 95.2 80.0-98.0 fL Mean Corpuscular Hemoglobin 33.7 27.0-33.0 pg Mean Corpuscular HGB Conc 35.4 31.0-36.0 g/dl Red Cell Distribution Width 12.9 11.0-16.0 % Platelet Count 257 160-400 X10*3/uL Mean Platelet Volume 8.8 9.4-12.4 fL Neutrophils Percent Auto 53.3 45-73 % Imm Gran Pct Auto 0.4 0.0-0.4 % Lymphocytes Percent Auto 36.0 20-40 % Monocytes Percent Auto 6.3 2-11 % Eosinophils Percent Auto 3.3 0-4 % Basophils Percent Auto 0.7 0-2 % NRBC Pct Auto 0.0 0.0-0.2 /100WBC Neutrophils Absolute Auto 3.8 2.0-8.3 x10*3/u L Imm Gran Abs Auto 0.03 0.00-0.03 X10*3/uL Lymphocytes Absolute Auto 2.6 1.2-4.9 X10*3/u L Monocytes Absolute Auto 0.5 0.1-1.2 X10*3/uL Eosinophils Absolute Auto 0.2 0.0-0.4 X10*3/u L Basophils Absolute Auto 0.1 0.0-0.2 X10*3/uL NRBC Abs Auto 0.000 0.0-0.012 X10*3/uL Reason For Referral No Information Medications Medication SIG (Take, Route, Fr equency, Duration) Notes Start Date End Date Status Indomethacin 50 MG TAKE 1 CAPSULE BY MO UTH THREE TIMES DAILY WITH FOOD for 30 [...] At work Fluarix Quadrivalent IM Intramuscular 06/02/2018 Admindinae red pt was given the vaccine at [facility] in [facility] on [address] Fluarix Quadrivalent IM Intramuscular 05/13/2019 Administe red pt was given vaccine at [facility] [place]. Fluarix Quadrivalent Unknown 06/19/2020 Administered At work [...] Problem Status W/U Status Risk Notes Problem 42656075 Lymphocytosis (D72.820) Active confirmed Problem Gout (59390420) Gout (M10.9) Active confirmed Problem 83633958 Anemia, unspecified (D64.9) Active confirmed Problem 65111803 Hereditary hemochromatosis (E83.110) Active confirmed Problem 387524141 Other hemochromatosis (E83.118) Active confirmed Problem 87120230 Rectal polyp (K62.1) Active confirmed Problem 7997613 Prediabetes (R73.09) Active confirmed Problem 54580840 [place] syndrom e (E80.4) Active confirmed Problem 857679091 History of gout (Z87.39) Active confirmed Problem 25563007 Heterozygous alp douglas 1-antitrypsin deficiency (E88.01) Active confirmed Problem Idiopathic gout (68394884) Acute idiopathic gout involving toe of right foot (M10.071) Active confirmed Problem 105010273 Rising PSA level (R97.20) Active confirmed Problem Hemochromatosis (633324519) Hemochromatosis, unspecified hemochromatosis type (E83.119) Active confirmed Problem 94065920 Acute idiopathic gout, unspecified site (M10.00) Active confirmed Problem 64871786 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 Problem Gout (33487811) Acute gout of right foot, unspecified cause (M10.9) Active confirmed Problem 963819218 Acute gout of le ft ankle, unspecified cause (M10.9) Active confirmed Problem 334980797 Basal cell carcinoma of chest (C44.519) Active confirmed Problem 372424114257363 Other secondary acute gout of right knee [...] Location Date Provider Diagnosis Gio Valdez MD [address] [place] [address] Drive [address] [place], [place] [phone] 11/25/2024 Gio Valdez Blood tests for rout ine general physical examination Z00.00 ; Anemia, unspecified D64.9 ; Prediabetes R73.09 ; Rising PSA level R97.20 and Other hemochromatosis E83.118 Gio Valdez MD [address] [place] [address] [address] [place], [place] [phone] 12/02/2024 Gio Valdez Gout M10.9 ; Adult [...] Date Electrocardiogram (EKG) 07/11/2011 Electrocardiogram (EKG) 01/08/2019 Complete Blood Count Auto Diff 5 Next Appt Details Provider Name:Gio mcneill, 11/29/2025 07:15:00 AM, [address] [place] [address], [address], [place], [place], [phone], Provider Name:Gio mcneill, 12/05/2025 08:30:00 AM, [address] [place] [address], [address], [place], [place], [phone], Insurance Providers Payer Name Payer Address Payer Phone Subscriber Number Group Number Insured Name Patient Relationship to Insured Coverage Start Date Coverage End Date [facility] [id number] [place] [id number] [phone] [id number] Wild Reuben Self - patient is the insured Medical (General) History Medical History History ICD Code Refuses flu shot (12-4-12) Colonoscopy 09/19/2014 w/ Dr. Valadez - repeat 10 yrs.Colonoscopy done 11/19/21 repeat 5 yrs Mild intermittent asthma without complic ation J45.20
--- OUTSIDE RECORDS SUMMARY | 2025-06-20 03:28 | XMS_ITS | Clinical Summary ---
Author Organization [facility] Address [address] [place] [address] Care Team Providers Care Senior Radiation Therapist Name Role Phone Gio Valdez MD Primary Care Provider [phone] Allergies No known active allergies Medications No [...] patient's age to complete this topic Insurance [facility] Care Teams Senior Radiation Therapist Relationship Specialty Start Date End Date Gio Valdez MD [address] [place] [address] [place] [address] PCP - General Internal Medicine 02/14/20
--- OUTSIDE RECORDS SUMMARY | 2025-06-20 03:29 | XMS_ITS | Clinical Summary ---
Author Organization [facility] Address [address] [place] [address] Phone Care Team Providers Care Release And Technical Records Clerk Name Role Phone Gio Valdez MD [...] (09/13/2021 2:59 PM EST) HDL 54 mg/dL [facility] Comment: Interpretation <40 mg/dL: Low HDL cholesterol (major risk factor for CHD) Greater than or equal to 60 mg/dL: High HDL cholesterol ( negative risk factor for CHD) HDL - cholesterol is affected by a number of factors, e.g. smoking, excerise, hormones, sex and age. CHOLESTEROL 175 0 - 240 mg/dL [facility] TRIGLYCERIDES 83 30 - 160 mg/dL [facility] LDL 104 50 - 129 mg/dL [facility] Comment: LDL levels in terms of risk for coronary heart disease: <100 mg/dL: Optimal 100-129 mg/dL: Near or above optimal 130-159 mg/dL: Borderline high 160-189 mg/dL: High >190 mg/dL: Very High CARDIAC RISK RATIO 3.2(L) 3.4 - 5.0 [facility] Blood 09/13/2021 2:59 PM EST 09/13/2021 3:03 PM EST us Gio Valdez MD LAB BLOOD BKR ORDERABLE S Final Result [facility] [address] [place] [address] from Last 3 Months or Most Recently Relevant to Health Maintenance [facility] [id number] [place] [address] [id number] [address] [place] [address] [id number] [place] [address] [facility] Address: [address] [address] Care Teams Release And Technical Records Clerk Relationship Specialty Start Date End Date Gio Valdez MD [address] [place] [address] PCP - General Internal Medicine 11/03/17 Additional Source Comments The information contained in this document represents components of the legal health record. It is not the complete legal health record.[facility]
--- OUTSIDE RECORDS SUMMARY | 2025-06-20 03:29 | XMS_ITS | Encounter Summary ---
Author Organization [facility] Address [address] [place] [address] Phone Care Team Providers Care Soil Fertility Extension Specialist Name Role Phone Gio Valdez MD Primary Care Provider Encounter Details Date Type Department Care Team (Late st Contact Info) Description 11/06/2017 Transcribe Orders [facility] Main [address] [place] [address] Bernabe Kennedy MD [address] [place] [address] Swelling of right knee joint (Primary Dx) [...] SCREEN ON HEP 2 Positive(A ) Negative [facility] Comment:An JUAN Titer has bee n reflexed. The results will follow. Blood 11/06/2017 2:15 PM EDT 11/06/2017 2:19 PM EDT us Bernabe Kennedy MD LAB BLOOD BKR ORDERABLE S Final Result [address] [address] documented in this encounter Visit Diagnoses Diagnosis Swelling of right knee joint- Primary Effusion of lower leg joint documented in this encounter Care Teams Soil Fertility Extension Specialist Relationship Specialty Start Date End Date Gio Valdez MD [address] [place] [address] [place] [address] PCP - General Internal Medicine 11/03/17 documented as of this encounter Additional Source Comments The information contained in this document represents components of the legal health record. It is not the complete legal health record.[facility]
--- OUTSIDE RECORDS SUMMARY | 2025-06-20 03:29 | XMS_ITS | Encounter Summary ---
Author Organization [facility] Address [address] [place] [address] [place] [phone] Phone Care Team Providers Care Gold Wheel Blocker And Polisher Name Role Phone Gio Valdez MD Primary Care Provider Encounter Details Date Type Department Care Team (Late st Contact Info) Description 12/12/2017 Transcribe Orders [facility] Phleb Natalie [address] [facility] 2nd [place] [address] Gio Valdez MD [address] [place] [address] [place] [address] Routine general medical examination at a health [...] (12/12/2017 2:37 PM EDT) COLOR STRAW(A) Yellow [facility] CLARITY Clear [facility] GLUCOSE Negative Negative [facility] BILI Negative Negative [facility] KETONES Negative Negative [facility] SPECIFIC GRAVITY <1.005 1.005 - 1.030 [facility] BLOOD Negative Negative [facility] PH 6.5 5.0 - 8.0 [facility] Protein-UA Negative Negative [facility] NITRITE Negative Negative [facility] Leukocyte esterase, ur Negative Negative [facility] Urine (Urine) 12/12/2017 2:3 7 PM EDT 12/12/2017 2:39 PM EDT Gio Valdez MD LAB URINE ORDERABLES Fi nal Result Performing Organization Address [facility] Co de Phone Number [address] [address] * Microalbumin/creatinine ratio, random urine (12/12/2017 2:37 PM EDT) URINE MICROALBUMIN 0.1 0 - 2.3 mg/dL [facility] URINE CREATININE 14 mg/dL [facility] MICROALB/CRE RATIO NOT CALCULATED 0 - 20 mg/g Cre [facility] Comment:due to Microalbumin <1.2 Urine (Urine) 12/12/2017 2:3 7 PM EDT 12/12/2017 2:39 PM EDT Gio Valdez MD LAB URINE ORDERABLES Fi nal Result Performing Organization Address [facility] Co de Phone Number [address] [address] * (ABNORMAL) CBC and differential (12/12/2017 2:05 PM EDT) WBC 7.15 3.40 - 11.20 K/uL [facility] RBC 4.48(L) 4.50 - 5.50 M/uL [facility] HGB 14.7 13.0 - 17.0 g/dL [facility] HCT 41.3 40.0 - 51.0 % [facility] PLT 262 130 - 400 K/uL [facility] MCV 92.2 79.0 - 98.0 fL [facility] MCH 32.8 27.0 - 34.8 pg [facility] MCHC 35.6 31.5 - 36.0 g/dL [facility] RDW 12.0 10.8 - 14.6 % [facility] MPV 9.7 9.4 - 12.4 [facility] NRBC 0.00 /100 WBCs [facility] ABSOLUTE NRBC 0.00 K/uL [facility] DIFF METHOD Auto [facility] NEUTS 50.8 45.30 - 77.70 % [facility] LYMPHS 37.3 12.30 - 39.70 % [facility] MONOS 7.8 4.10 - 12.80 % [facility] EOS 3.5 0 - 7.2 % [facility] BASOS 0.6 0 - 2.80 % [facility] Granulocytes, immature (%) 0.0 0.0 - 0.9 % [facility] ABSOLUTE NEUTS 3.63 1.40 - 7.70 K/uL [facility] ABSOLUTE LYMPHS 2.67 0.60 - 3.20 K/uL [facility] ABSOLUTE MONOS 0.56 0.11 - 0.59 K/uL [facility] ABSOLUTE EOS 0.25 0.01 - 0.50 K/uL [facility] ABSOLUTE BASOS 0.04 0.00 - 0.08 K/uL [facility] Granulocytes, immature 0.00 0.00 - 0.05 K/uL [facility] Blood 12/12/2017 2:05 PM EDT 12/12/2017 2:12 PM EDT Gio Valdez MD LAB BLOOD BKR ORDERABLE S Final Result Performing Organization Address City/[facility]/ZIP Co de Phone Number [address] [phone] * PSA (screening) (12/12/2017 2:05 PM EDT) PSA 2.22 0 - 4.00 ng/mL [facility] Blood 12/12/2017 2:05 PM EDT 12/12/2017 2:12 PM EDT Gio Valdez MD LAB BLOOD BKR ORDERABLE S Final Result Performing Organization Address City/[facility]/ZIP Co de Phone Number [address] [address] * (ABNORMAL) Lipid panel (12/12/2017 2:05 PM EDT) HDL 57 mg/dL [facility] Comment: Interpretation: Risk Level Males Decreased >45 mg/dL Average 40-45 mg/dL Increased <40 mg/dL CHOLESTEROL 174 0 - 240 mg/dL [facility] TRIGLYCERIDES 201(H) 30 - 160 mg/dL [facility] LDL 77 50 - 129 mg/dL [facility] Comment: LDL levels in terms of risk for coronary heart disease: <100 mg/dL: Optimal 100-129 mg/dL: Near or above optimal 130-159 mg/dL: Borderline high 160-189 mg/dL: High >190 mg/dL: Very High CARDIAC RISK RATIO 3.1(L) 3.4 - 5.0 [facility] Blood 12/12/2017 2:05 PM EDT 12/12/2017 2:12 PM EDT Gio Valdez MD LAB BLOOD BKR ORDERABLE S Final Result [address] [address] * (ABNORMAL) Uric acid (12/12/2017 2:05 PM EDT) URIC ACID 7.6(H) 2.4 - 7.0 mg/dL [facility] Blood 12/12/2017 2:05 PM EDT 12/12/2017 2:12 PM EDT Gio Valdez MD LAB BLOOD BKR ORDERABLE S Final Result [address] [address] * Comprehensive metabolic panel (12/12/2017 2:05 PM EDT) SODIUM 141 133 - 146 mmol/L [facility] POTASSIUM 4.3 3.3 - 5.1 mmol/L [facility] CHLORIDE 102 96 - 108 mmol/L [facility] CO2 28 21 - 35 mmol/L [facility] BUN 8 6 - 19 mg/dL [facility] CREATININE 0.80 0.5 - 1.5 mg/dL [facility] GLUCOSE 86 70 - 99 mg/dL [facility] ALBUMIN 4.0 3.9 - 4.8 g/dL [facility] TOTAL PROTEIN 6.7 6.5 - 8.0 g/dL [facility] CALCIUM 9.2 8.4 - 10.3 mg/dL [facility] ALKALINE PHOSPHATASE 75 39 - 117 U/L [facility] TOTAL BILIRUBIN 1.2 0.0 - 1.2 mg/dL [facility] AST 24 0 - 37 U/L [facility] ALT 26 0 - 40 U/L [facility] GLOBULIN 2.7 1 - 4.8 g/dL [facility] EGFR 102 >59 mL/min/1.7 3m2 [facility] Comment:If patient is black, multiply result by 1.159. The eGFR calculation has changed from the MDRD equation to the CKD-EPI equation as of October 14, 2017. ANION GAP 15 10 - 20 mmol/L [facility] Blood 12/12/2017 2:05 PM EDT 12/12/2017 2:12 PM EDT Gio Valdez MD LAB BLOOD BKR ORDERABLE S Final Result Performing Organization Address [facility] Co de Phone Number [address] [address] * Hemoglobin A1c (12/12/2017 2:05 PM EDT) HEMOGLOBIN A1C 4.9 4.3 - 5.8 % [facility] Blood 12/12/2017 2:05 PM EDT 12/12/2017 2:12 PM EDT Gio Valdez MD LAB BLOOD BKR ORDERABLE S Final Result Performing Organization Address City/[facility] Co de Phone Number [address] [address] documented in this encounter Visit Diagnoses Diagnosis Routine general medical examination at a health care facility- Primary Anemia, unspecified type Other abnormal glucose documented in this encounter Care Teams Gold Wheel Blocker And Polisher Relationship Specialty Start Date End Date Gio Valdez MD [address] [place] [address] [place] [address] PCP - General Internal Medicine 11/03/17 documented as of this encounter Additional Source Comments The information contained in this document represents components of the legal health record. It is not the complete legal health record.[facility]
[2025-06-20 03:34] LABS: Alanine Aminotransferase 26 U/L (0-40); Albumin Level 4.5 g/dL (3.5-5.0); Alkaline Phosphatase 59 U/L (39-117); Anion Gap 14 (12-20); Aspartate Amino Transferase 26 U/L (5-37); Blood Urea Nitrogen 19 mg/dL (9-16); Calcium 9.5 mg/dL (8.4-10.2); Carbon Dioxide 27 mmol/L (22-29); Chloride 106 mmol/L (96-108); Creatinine Clr Calc Pharmacy 96.3; Estimated Glomerular Filt Rate > 60; Lipase 25 U/L (8-78); Magnesium 2.2 mg/dL (1.6-2.6); Potassium 4.3 mmol/L (3.3-5.1); Sodium 143 mmol/L (135-145); Total Protein 6.9 g/dL (6.5-8.0)
[2025-06-20 03:37] LABS: COVID-19 Test Negative (Negative); IDNOW Serial# 55D5AD1C; IDNOW Serial# 58CA691E; Influenza B2 Negative (Negative)
--- NOTE | 2025-06-20 06:10 | ED.ABDPAIN ---
HPI - Abdominal Pain General Chief Complaint: Abdominal Pain Stated Complaint: abd pain, nauseous Time Seen by Provider: 06/20/25 05:50 Source: patient, family and old records reviewed Mode of arrival: ambulatory Limitations: no limitations History of Present Illness ED Provider: HUMBERTO STOVER narrative: 60-year-old male with past medical history of hemochromatosis, gout, prior hernia repair here with complaint of feeling a little bit off yesterday where he felt like he was falling even though he had not eaten much. He denies any abdominal pain but was acutely woken up either 1 hammertoe a.m. this morning with diffuse or abdominal pain, nonbloody diarrhea, nausea and dry heaves. He states he is urinating it looks normal. He denies any sick contacts, travel, any other precipitating events. He states he has had colonoscopy in the past and some had tubular adenomas removed. He is here with his spouse. His spouse is not ill. He does not report a fever MD elicited complaint: abdominal pain Pertinent past history: none Onset (ago): hour(s) (01:00) Pain Consistency: intermittent Location: RLQ, LLQ and suprapubic Severity: severe Quality: cramping Radiation: none Migration to: no migration Exacerbating factors: movement Relieving factors: nothing Associated symptoms: nausea, diarrhea and chills Related Data Home Medications ?Medication ?Instructions ?Recorded ?Confirmed allopurinol 300 mg tablet 300 mg PO DAILY 03/10/23 11/17/23 Allergies Allergy/AdvReac Type Severity Reaction Status Date / Time No Known Allergies Allergy Mild N/A Verified 06/20/25 03:01 Review of Systems Review of Systems Constitutional : No Weight loss, No Fever, No Chills ENT/Mouth : No sore throat, No Rhinorrhea Eyes: No Swelling, No Redness Cardiovascular : No Chest Pain, No SOB, NoEdema Respiratory : No Cough, No Sputum, No Wheezing Gastrointestinal : Positive Nausea, no Vomiting, positive Diarrhea, positive abdominal Pain, No Hematochezia, No Melena Genitourinary : No Dysuria, No Urinary Frequency, No Hematuria, No Urgency Musculoskeletal : No joint pain, No Myalgias, No Joint Swelling Skin : No Skin Lesions, No rash Neuro : No Weakness, No Numbness, No Dizziness, No Headache All other systems reviewed and are negative. COUNTS INCLUDE 234 BEDS AT THE [facility] Past Medical History Source: old records reviewed Medical History COVID-19 vaccine series completed Hx of gout Tubular adenoma of colon Hemochromatosis Inguinal hernia Surgical History Hx of umbilical hernia repair History of liver biopsy H/O colonoscopy Family History Family History Mother Cancer Social History Social History Household Members: Spouse Household Members Other:: Son Housing: House Alcohol intake: current Alcohol intake frequency: a few times a week Patient Tobacco Use Status: Never used Tobacco Advance Directives: No Advance Directives Information Provided: No service: No Current occupational status: employed Current occupation: [employer] Exam ED Vital Signs: Vital Signs - 24 hr 06/20/25 02:56 06/20/25 07:39 Temperature 97.3 F 97.3 F Pulse Rate 108 H 108 H Respiratory Rate 18 18 Blood Pressure 143/97 H 143/97 H Pulse Oximetry 93 Oxygen Delivery Method Room Air BMI result Body Mass Index 30.6 Appearance: Alert. Oriented X3. In pain mild acute distress. Eyes: Pupils equal, round and reactive to light. ENT: Pharynx normal. Neck: Normal inspection. Neck supple. CVS: Normal heart rate and rhythm. Pulses normal. Respiratory: No respiratory distress. Breath sounds normal. Abdomen: Soft but with diffuse lower abdominal tenderness to palpation, no rebound, guarding on exam Skin: Skin warm and dry. Normal skin color. Normal skin turgor. Extremities: No lower extremity edema. Neuro: Oriented X 3. No motor deficit. No sensory deficit. Medical Decision Making Medical Decision Making MDM Narrative: 60-year-old male with past medical history of hemochromatosis, gout, prior hernia repair here with lower abdominal pain, nausea, diarrhea without any known precipitating events or risk factors. He does have significant tenderness to palpation on exam, I am going to obtain labs, lactic acid, blood cultures, CT scan to evaluate for any acute infectious or surgical pathology, start on IV fluids, started on IV Dilaudid for pain. I think given his tachycardia and degree of tenderness to palpation on exam I am going to start him on empiric Zosyn. Differential Diagnosis Differential Diagnoses: The differential diagnosis associated with the presentation includes Diverticulitis, renal colic, SBO, appendicitis, enteritis Admission/Observation Consideration of admission/observation: Escalation of care including admission/observation considered Admit for bowel obstruction Consult Healthcare Provider Management of the patient was discussed with: Stencil Machine Operator (Dr. Harper aware will evaluate patient in the ED and anticipate admission) Lab Data MDM Lab Attestation statement: I reviewed the patient's lab results. 06/20/25 03:10 06/20/25 03:10 Labs: Lab Results 06/20/25 06/20/25 06/20/25 Range/Units 03:10 06:19 06:39 WBC 7.2 (4.8-10.8) X10*3/uL RBC 4.36 L (4.60-5.80) X10*6/uL Hgb 14.7 (14.0-18.0) g/dl Hct 41.5 L (42.0-52.0) % MCV 95.2 (80.0-98.0) fL MCH 33.7 H (27.0-33.0) pg MCHC 35.4 (31.0-36.0) g/dl RDW 12.9 (11.0-16.0) % Plt Count 257 (160-400) X10*3/uL MPV 8.8 L (9.4-12.4) fL Immature Gran % (Auto) 0.4 (0.0-0.4) % Neut % (Auto) 53.3 (45-73) % Lymph % (Auto) 36.0 (20-40) % Fleming % (Auto) 6.3 (2-11) % Eos % (Auto) 3.3 (0-4) % Baso % (Auto) 0.7 (0-2) % Lymph # (Auto) 2.6 (1.2-4.9) X10*3/uL Fleming # (Auto) 0.5 (0.1-1.2) X10*3/uL Eos # (Auto) 0.2 (0.0-0.4) X10*3/uL Baso # (Auto) 0.1 (0.0-0.2) X10*3/uL Abs Immat Gran (auto) 0.03 (0.00-0.03) X10*3/uL Absolute Neuts (auto) 3.8 (2.0-8.3) x10*3/uL Absolute Nucleated RBC 0.000 (0.0-0.012) X10*3/uL Nucleated RBC % (auto) 0.0 (0.0-0.2) /100WBC Sodium 143 (135-145) mmol/L Potassium 4.3 (3.3-5.1) mmol/L Chloride 106 (96-108) mmol/L Carbon Dioxide 27 (22-29) mmol/L Anion Gap 14 (12-20) BUN 19 H (9-16) mg/dL Creatinine 0.94 (0.5-1.4) mg/dL Estim Creat Clear Calc 96.3 Estimated GFR > 60 Random Glucose 118 H (60-115) mg/dL Lactic Acid 1.7 (0.5-2.0) mmol/L Calcium 9.5 (8.4-10.2) mg/dL Magnesium 2.2 (1.6-2.6) mg/dL Total Bilirubin 1.0 (0.0-1.0) mg/dL Direct Bilirubin 0.3 (0.0-0.5) mg/dL AST 26 (5-37) U/L ALT 26 (0-40) U/L Alkaline Phosphatase 59 (39-117) U/L Total Protein 6.9 (6.5-8.0) g/dL Albumin 4.5 (3.5-5.0) g/dL Lipase 25 (8-78) U/L Urine Color Yellow Urine Appearance Clear Urine pH 7.0 (5.0-9.0) Ur Specific [place] 1.025 (1.005-1.025) Urine Protein Negative (Neg-Trace) mg/dL Urine Glucose (UA) Negative (Negative) mg/dL Urine Ketones Trace (Negative) mg/dL Urine Blood Negative (Negative) Urine Nitrite Negative (Negative) Ur Leukocyte Esterase Trace H (Negative) Urine RBC 0-2 (0-2) /HPF Urine WBC 0-5 (0-5) /HPF Ur Squamous Epith Cells 0-2 (0-2) /HPF Urine Bacteria None Seen (None Seen) Hyaline Casts 0-2 (0-2) /LPF COVID-19 (DENG) Negative (Negative) COVID-19 Clin Com See Note Influenza Type A (KELSEY) Negative (Negative) Influenza Type B (KELSEY) Negative (Negative) Influenza A & B Note See Note Independent Interpretation I performed an independent interpretation of an: CT Scan (Small-bowel obstruction) Radiology Impression Discussion of test interpretation with radiology: I have reviewed the radiologist's reading. Independent Historian Clinical information obtained from an independent historian. History obtained from or confirmed by: Spouse External Record Review External record reviewed: Outpatient record Medications Administered Discontinued Medications Generic Name Dose Route Start Last Admin Trade Name Freq PRN Reason Stop Dose Admin Hydromorphone HCl 1 mg 06/20/25 06:08 06/20/25 06:32 Hydromorphone Hcl 1 Mg/Ml Syringe IVPUSH 06/20/25 06:09 1 mg ONCE ONE Administration Protocol Sodium Chloride 1,000 mls @ 999 mls/hr 06/20/25 04:45 06/20/25 06:48 Ns IV 06/20/25 05:45 Infused .Q1H1M HELEN Infusion Piperacillin Sod/Tazobactam 50 mls @ 100 mls/hr 06/20/25 06:08 06/20/25 06:32 Sod 3.375 gm/ Sodium Chloride IV 06/20/25 06:37 100 mls/hr ONCE ONE Administration Lactated Ringer's 1,000 mls @ 999 mls/hr 06/20/25 06:08 06/20/25 06:31 Lr IV 06/20/25 07:08 999 mls/hr .Q1H1M ONE Administration Iohexol 85 ml 06/20/25 06:58 06/20/25 06:58 Iohexol 350 Mg/Ml 100 Ml Infus..Btl IV 06/20/25 06:59 85 ml ONCE ONE Administration Ketorolac Tromethamine 15 mg 06/20/25 06:08 06/20/25 06:31 Ketorolac Tromethamine 15 Mg/Ml Vial IVPUSH 06/20/25 06:09 15 mg ONCE ONE Administration Ondansetron HCl 4 mg 06/20/25 04:42 06/20/25 04:51 Ondansetron Hcl 4 Mg/2 Ml Vial IVPUSH 06/20/25 04:43 4 mg ONCE ONE Administration Ondansetron HCl 4 mg 06/20/25 06:08 06/20/25 06:31 Ondansetron Hcl 4 Mg/2 Ml Vial IVPUSH 06/20/25 06:09 4 mg ONCE ONE Administration Critical Care Time Critical Care Time Critical Care Time: Yes Total Critical Care Time: 45 Attestation: Time is exclusive of separately billable procedures. Time includes: direct patient care, patient reassessment, coordination of patient care, interpretation of data (laboratory data, pulse oximetry, a CT scan, review of patient's medical records, medical consultation and documentation of patient care. IV Dilaudid with improvement in pain Procedures excluded from critical care time: electrocardiography. I attest to this time spent taking care of the patient Discharge Plan Discharge Clinical Impression: Small bowel obstruction Patient Disposition: Admitted As Inpatient Print Language: Wolof
[2025-06-20] MEDS: Lactated Ringers 1,000 ML 999 ML IV (06:31)
[2025-06-20 06:50] LABS: Appearance Urine Clear; Glucose Urine UA Negative (Negative); PH 7.0 (5.0-9.0); Specific Gravity - Urine 1.025 (1.005-1.025); UMIC TRIGGER UACC YES
[2025-06-20] MEDS: iohexoL 350 MG/ML 100 ML INFUS..BTL 85 ML IV (06:58)
--- NOTE | 2025-06-20 07:39 | PC.NURSE ---
report taken from previous rn, pt is resting comfortably, he is not a fall risk. call miranda is within reach, we are waiting for ct report.
--- NOTE | 2025-06-20 08:05 | PM.HPGS ---
History of Present Illness History of Present Illness Date of Service: 06/23/25 Chief complaint: partial small-bowel obstruction Narrative: Reuben Rome is a 60 year old male here in the ER because of abdominal pain, nausea and vomiting starting around 01:00 last night. He says that he felt a little bloated all day yesterday. He describes having some diarrhea as well described as multiple episodes of watery stools. He says the pain woke him up from his sleep last night so he went to the emergency room. He said he had some vomiting at around 05:00 this morning. He does state the feels better now though still has some pain He had a previous umbilical hernia repair in the 2018 He says he is passing flatus. ON LICENSE OF [facility] Past Medical History Medical History COVID-19 vaccine series completed Hx of gout Tubular adenoma of colon Hemochromatosis Inguinal hernia Family History Family History Mother Cancer Surgical History Surgical History Hx of umbilical hernia repair History of liver biopsy H/O colonoscopy Social History Social History Household Members: Spouse Household Members Other:: Son Housing: House Alcohol intake: current Alcohol intake frequency: holidays/special occasions only Patient Tobacco Use Status: Never used Tobacco Second Hand Smoke Exposure: No service: No Current occupational status: employed Current occupation: [employer] Allergies Allergy/AdvReac Type Severity Reaction Status Date / Time No Known Allergies Allergy Mild N/A Verified 06/20/25 03:01 Home Medications ?Medication ?Instructions ?Recorded ?Confirmed ?Last Taken ?Type allopurinol 300 mg tablet 300 mg PO DAILY 03/10/23 06/20/25 Unknown History Physical Exam Vital Signs: Vital Signs: Last Vital Signs Temp 97.3 F 06/20/25 07:39 Pulse 108 H 06/20/25 07:39 Resp 18 06/20/25 07:39 BP 143/97 H 06/20/25 07:39 Pulse Ox 93 06/20/25 02:56 O2 Del Method Room Air 06/20/25 02:56 BMI result Body Mass Index 30.6 Const: General: comfortable and no acute distress Orientation/consciousness: patient oriented x3 Neck: Neck: Yes no lymphadenopathy Resp: Auscultation: clear to auscultation bilaterally Cardio: Rhythm: regular rhythm GI: Other: Mildly distended Palpation (GI): Soft to palpation, nontender and no guarding Neuro: General: patient oriented x3 Results Results Labs: Short CBC 06/20/25 Range/Units 03:10 WBC 7.2 (4.8-10.8) X10*3/uL Hgb 14.7 (14.0-18.0) g/dl Hct 41.5 L (42.0-52.0) % Plt Count 257 (160-400) X10*3/uL BMP 06/20/25 03:10 Sodium 143 Potassium 4.3 Chloride 106 Carbon Dioxide 27 BUN 19 H Creatinine 0.94 Calcium 9.5 Liver Function 06/20/25 Range/Units 03:10 Total Bilirubin 1.0 (0.0-1.0) mg/dL Direct Bilirubin 0.3 (0.0-0.5) mg/dL AST 26 (5-37) U/L ALT 26 (0-40) U/L Alkaline Phosphatase 59 (39-117) U/L Albumin 4.5 (3.5-5.0) g/dL Urine 06/20/25 Range/Units 06:39 Urine Color Yellow Urine Appearance Clear Urine pH 7.0 (5.0-9.0) Ur Specific [place] 1.025 (1.005-1.025) Urine Protein Negative (Neg-Trace) mg/dL Urine Glucose (UA) Negative (Negative) mg/dL Assessment and Plan (1) Small bowel obstruction: Status: Acute 60-year-old male who had abdominal pain, nausea overnight. I have reviewed his CAT scan and this shows mildly dilated small bowel loops with a possible transition point in the right abdomen suggestive of partial small-bowel obstruction. He has a good amounts of air distally including the colon His abdominal exam is very benign. His abdomen is soft although mildly distended. This areas no guarding or rebound. He said that he has not had any vomiting since around 05:00 this morning . He will be admitted for IV fluids. He will be kept NPO. We will do serial abdominal exam. He understands he may need an NG-tube placed if he has vomiting later today. He also understands there is the small chance of him requiring a laparotomy. We may also order for a small bowel series if he does not show significant improvement by tomorrow. His significant other was with him during the visit. Quality Stroke Does the patient have a stroke diagnosis?: No VTE Prior VTE?: No VTE Risk Level:: Medical - moderate - high VTE Device Contraindication: N/A - Device Ordered VTE Drug Contraindication: N/A - Med Ordered Procedures Date of Service Date of Service: 06/23/25
--- NOTE | 2025-06-20 09:00 | PHA.MEDREC ---
Pharmacy Consult ? Medication Reconciliation Pharmacy has completed the medication reconciliation.
[2025-06-20] MEDS: Lactated Ringers 1,000 ML 100 ML IVCONT ×2 (09:39→21:30)
--- NOTE | 2025-06-20 15:05 | HO.NURTONUR ---
66 year old male from home A&O x, indepenedent with ambulation and ADL's at [facility]. Presents to ED w/ c/o abd pain and nausea that started at 0500. pt had abdominal workup in ED, CT scan significant for potential small bowel obstruction No NG tube in place at this time. no complaints of pain at this time. pt has 20g IV in R-AC infusing LR @ 100/hr. pt was seen by general surgery plan is to monitor pt inpatient and provide surgical intervention if needed. belongings list complete.
--- NOTE | 2025-06-20 17:08 | PM.EVENT ---
Event Note Date of Service: 06/20/25 Event Note: Seen on afternoon rounds Says he feels much better this afternoon compared to this morning Has some abdominal discomfort but much improved Passing flatus Abdomen is soft, benign, minimally tender Stable vital signs Continue IV fluids for now Bowel rest Re-evaluate tomorrow morning Otherwise seemed to be much improved Time Spent With Patient Time: Total time managing care of this patient today ____ minutes.
[2025-06-21 04:00] VITALS: BP 138/65; PULSE 60; RESP 18; TEMP 36.4; O2SAT 96
[2025-06-21] MEDS: Lactated Ringers 1,000 ML 100 ML IVCONT (06:02)
[2025-06-21 07:57] VITALS: BP 121/84; PULSE 71; RESP 14; TEMP 36.8; O2SAT 95
--- NOTE | 2025-06-21 08:26 | P.PNGS_ITS ---
Subjective Subjective Date of Service: 06/21/25 <Shyann Montez PA-C - Last Filed: 06/21/25 08:28> 06/21/25 <Steve Harper MD - Last Filed: 06/21/25 12:30> Interval history: Feels significantly improved. Denies any abdominal pain. Bloating improved. No nausea/vomiting. Passing flatus. Has not gotten OOB yet. <Shyann Montez PA-C - Last Filed: 06/21/25 08:28> Physical Exam 2 Vital Signs: Vital Signs: Last Vital Signs Temp 98.3 F 06/21/25 07:57 Pulse 71 06/21/25 07:57 Resp 14 06/21/25 07:57 BP 121/84 06/21/25 07:57 Pulse Ox 95 06/21/25 07:57 O2 Del Method Room Air 06/21/25 07:57 BMI result Body Mass Index 31.4 <Shyann Montez PA-C - Last Filed: 06/21/25 08:28> Const: General: comfortable, no acute distress and alert <Shyann Montez PA-C - Last Filed: 06/21/25 08:28> Orientation/consciousness: patient oriented x3 <MONICA Strong Last Filed: 06/21/25 08:28> Resp: Effort & Inspection: normal respiratory effort and able to speak in complete sentences <Shyann Montez PA-C - Last Filed: 06/21/25 08:28> GI: Inspection: No distended <Shyann Montez PA-C - Last Filed: 06/21/25 08:28> Palpation (GI): Soft to palpation, nontender and no guarding <Shyann Montez PA-C - Last Filed: 06/21/25 08:28> Skin: General skin exam: no rashes or lesions noted <MONICA Strong Last Filed: 06/21/25 08:28> Neuro: General: patient oriented x3 and moves all extremities <MONICA Strong Last Filed: 06/21/25 08:28> Objective Data Active Medications Acetaminophen (Acetaminophen 325 Mg Tablet) 650 mg PO Q6H PRN PRN Reason: Pain, Mild 1-3,fever,headache Heparin Sodium (Porcine) (Heparin Sodium,Porcine 5,000 Unit/Ml Vial) 5,000 unit SUBCUT Q8H [facility] Lactated Ringer's (Lr) 1,000 mls @ 100 mls/hr IVCONT .Q10H [facility] Last Admin: 06/21/25 06:02 Dose: 100 mls/hr Documented By: CURT Melatonin (Melatonin 3 Mg Tablet) 6 mg PO BEDTIME PRN PRN Reason: Insomnia Morphine Sulfate (Morphine Sulfate 4 Mg/Ml Cartridge) 3 mg IVPUSH Q4H PRN; Protocol PRN Reason: Pain, Severe (Pain Scale 7-10) Ondansetron HCl (Ondansetron Hcl 4 Mg/2 Ml Vial) 4 mg IVPUSH Q6H PRN PRN Reason: Nausea and Vomiting Sodium Chloride (0.9 % Sodium Chloride Flush 3 Ml Syringe) 3 ml IVFLUSH QSHIFT [facility] Last Admin: 06/21/25 07:20 Dose: Not Given Documented By: HELEN Non-Admin Reason: IV Running <Shyann Montez PA-C - Last Filed: 06/21/25 08:28> Labs CBC & Chem 7: 06/20/25 03:10 06/20/25 03:10 <Shyann Montez PA-C - Last Filed: 06/21/25 08:28> Microbiology Microbiology Results: Microbiology 06/20/25 06:19 Blood Culture - Preliminary Blood - Venous No growth after 24 hours. 06/20/25 06:19 Blood Culture - Preliminary Blood - Venous No growth after 24 hours. <Shyann Montez PA-C - Last Filed: 06/21/25 08:28> Procedures Date of Service Date of Service: 06/21/25 <Shyann Montez PA-C - Last Filed: 06/21/25 08:28> 06/21/25 <Steve Harper MD - Last Filed: 06/21/25 12:30> Progress Note: A&P Assessment and plan (1) Small bowel obstruction: Status: Acute <Shyann Montez PA-C - Last Filed: 06/21/25 08:28> Assessment and Plan: I have seen and examined him few times today He is feeling well and denies symptoms He is passing flatus and BMs Tolerating clear liquids Advance diet as tolerated Abdomen is soft and benign and nontender Possible DC home later on Seen and examined independently <Steve Harper MD - Last Filed: 06/21/25 12:30> Assessment and Plan: SBO appears resolved at this point. He is asymptomatic now with evidence of GI function. Abdomen is benign-soft, NTND. Will advance to clear liquids and further as tolerated. Encouraged OOB/ambulation and increasing activity. Patient comfortable with plan. Home when tolerating solid diet. <Shyann Montez PA-C - Last Filed: 06/21/25 08:28> Time Spent With Patient Time: Total time managing care of this patient today ____ minutes. <Shyann Montez PA-C - Last Filed: 06/21/25 08:28> Quality Stroke Does the patient have a stroke diagnosis?: No <Shyann Montez PA-C - Last Filed: 06/21/25 08:28> VTE Prior VTE?: No <Shyann Montez PA-C - Last Filed: 06/21/25 08:28> VTE Risk Level:: Medical - moderate - high <MONICA Strong Last Filed: 06/21/25 08:28> VTE Device Contraindication: N/A - Device Ordered <Shyann Montez PA-C - Last Filed: 06/21/25 08:28> VTE Drug Contraindication: N/A - Med Ordered <Shyann Montez PA-C - Last Filed: 06/21/25 08:28>
--- NOTE | 2025-06-21 10:17 | MHC.CM.PN ---
pt lives with spouse is indepedent and working will not need services when dcd dc plan home n/s
--- NOTE | 2025-06-21 11:05 | MHC.RECOVRN ---
Met with pt in [facility] after receiving an addiction consult for (+) Audit [facility]. Upon approach pt is sitting by bedside table and working on his laptop. Pt receptive to conversation. Discussed with pt that he had a positive Audit C screen and if he was okay to briefly discuss drinking patterns. Pt agreed. Patient reports drinking approximately 1 glass of wine daily, occasionally 2-4 glasses during social dinners. No episodes of binge drinking, intoxication, loss of control, or use to cope with mood. Patient denies withdrawal symptoms, cravings, blackouts, tolerance changes, legal concerns, or impairment in functioning. No history of alcohol misuse or treatment. Pattern appears consistent with low-risk use. Discussed general low-risk drinking guidelines and strategies to maintain moderation. Reviewed potential cumulative effects of regular alcohol use and the importance of monitoring frequency and portion size. Patient demonstrated good insight and expressed willingness to continue being mindful of intake. Patient accepted the [employer]inking [employer] educational resource and plans to review it. Pt will continue to monitor drinking patterns and impact on mood/health. No current indication for substance use treatment referral at this time.
--- NOTE | 2025-06-21 14:34 | PM.EVENT ---
Event Note Date of Service: 06/21/25 Event Note: Examined multiple times during the day He has been doing very well Indurated regular diet for lunch Says he has had no abdominal pain No nausea or vomiting Passing flatus and has had BMs Abdomen very soft, benign, nontender He says he is ready to be discharged Okay to [place] home Probably had some form of enteritis Follow up with primary care physician Time Spent With Patient Time: Total time managing care of this patient today ____ minutes.
--- NOTE | 2025-06-21 14:44 | MHC.CM.PN ---
Patient is discharged to home todat self care. He has arranged for private transportation home.
--- NOTE | 2025-06-21 15:01 | MHC.CM.PN ---
pt dcd home self care
[2025-06-21 15:34] VITALS: BP 134/74; PULSE 81; RESP 16; TEMP 36.4; O2SAT 93
[2025-06-21 15:35] VITALS: BP 134/74; PULSE 81; RESP 16; TEMP 36.4; O2SAT 93
== END 2025-06-21 16:02 | disposition home or self-care (01) | DRG 390 ==
LOC: HO.ED 07:45 → HO.EDOVER 08:24 → HO.S3 14:25
PROVIDERS: Admitting Provider Surgery; Emergency Provider Emergency Medicine; PCP Internal Medicine; Visit Provider Surgery
DX: K56.600 Partial intestinal obstruction, unspecified as to cause (principal); Z20.822 Contact with and (suspected) exposure to COVID-19; Z79.899 Other long term (current) drug therapy
CPT/HCPCS: 36415; 74177; 80053; 81001; 82248; 83605; 83690; 83735; 85025; 87040; 87502; 87635; 99285; J1171; J1644; J1885; J2405; J2543; J7120; Q9967

== ENCOUNTER → 2025-06-20 06:08 | Outpatient (BNV) | payer OTHER, SELFPAY | PROVIDERS: Emergency Provider Emergency Medicine; PCP Internal Medicine; Visit Provider Radiology Vascular & Interventional Radiology | DX: R10.30 Lower abdominal pain, unspecified (principal) | CPT/HCPCS: 74177 ==

== ENCOUNTER → 2025-06-20 08:08 | Outpatient (BNV) | payer OTHER, SELFPAY | PROVIDERS: Admitting Provider Surgery; Emergency Provider Emergency Medicine; PCP Internal Medicine; Visit Provider Surgery | DX: K56.609 Unspecified intestinal obstruction, unspecified as to partial versus complete obstruction (principal) | CPT/HCPCS: 99222; 99238; 99499 ==